=== PATIENT | female | born 1940 | race Caucasian/White ===

== ENCOUNTER 2020-09-02 07:48 | Inpatient (IN) | payer MEDICARE, BC ==
[2020-09-02] MEDS ORDERED: ONDANSETRON 4 MG/2 ML VIAL IVP STA ×2 (08:22→22:28)
[2020-09-02] MEDS ORDERED: HYDROmorphone 0.5 MG/0.5 ML SYRINGE IVP STA (08:22)
--- NOTE | 2020-09-02 08:53 | ED ---
General Adult HPI - General Chief complaint: Shortness of Breath Stated complaint: Weak/vomiting Time Seen by Provider: 09/02/20 08:00 Source: patient, family, RN notes reviewed, old records reviewed Mode of arrival: wheelchair Limitations: no limitations - History of Present Illness Initial comments: This is an 79-year-old female with a past medical history significant for a recent urinary tract infection which caused her sepsis. Patient started ant ibiotics in the hospital after 9 days was released home with the midline access for more antibiotics. Patient also has been told she has kidney failure and so she has had increased swelling in her legs and decided to come the emergency department. Patient complains that she's feeling a little more short of breath. Patient denies any fever chills per patient denies chest pain or palpitations. Patient denies headache patient denies numbness weakness. Patient denies any abdominal pain but she's very nauseated hasn't been able to eat much.patient states recently she's also been anemic and had be transfused a unit of blood transferred. - Related Data Allergies Allergy/AdvReac Type Severity Reaction Status Date / Time latex Allergy Rash/Hives Verified 09/02/20 07:58 Review of Systems ROS Statement: Those systems with pertinent positive or pertinent negative responses have been documented in the HPI. ROS Other: All systems not noted in ROS Statement are negative. Past Medical History Past Medical History: COPD Additional Past Medical History / Comment(s): COLON CA 2014 History of Any Multi-Drug Resistant Organisms: None Reported Past Surgical History: No Surgical Hx Reported Smoking Status: Never smoker Past Alcohol Use History: None Reported Past Drug Use History: None Reported General Exam - General Exam Comments Initial Comments: GENERAL: Patient is well-developed and well-nourished. Patient is nontoxic and well- hydrated and is in mild distress. ENT: Neck is soft and supple. No significant lymphadenopathy is noted. Oropharynx is clear. Moist mucous membranes. Neck has full range of motion without eliciting any pain. EYES: The sclera were anicteric and conjunctiva were pink and moist. Extraocular movements were intact and pupils were equal round and reactive to light. Eyelids were unremarkable. PULMONARY: Unlabored respirations. Good breath sounds bilaterally. No audible rales rh onchi or wheezing was noted. CARDIOVASCULAR: There is a regular rate and rhythm without any murmurs gallops or rubs. ABDOMEN: Soft and nontender with normal bowel sounds. SKIN: Skin is clear with no lesions or rashes and otherwise unremarkable. NEUROLOGIC: Patient is alert and oriented x3. Cranial nerves II through XII are grossly intact. Motor and sensory are also intact. Normal speech, volume and content. Symmetrical smile. MUSCULOSKELETAL: Normal extremities with adequate strength and full range of motion. 2+ edema LYMPHATICS: No significant lymphadenopathy is noted PSYCHIATRIC: Normal psychiatric evaluation. Limitations: no limitations Course Vital Signs 09/02/20 09/02/20 09/02/20 07:59 08:14 09:01 Temperature 98 F Pulse Rate 98 84 Respiratory 16 18 18 Rate Blood Pressure 128/72 125/57 O2 Sat by Pulse 100 99 Oximetry Medical Decision Making - Medical Decision Making EKG shows sinus rhythm at a rate of 96 bpm NV interval 236 QRS is 74 QT interval 336 QTC is 424. Patient's EKG shows no ST segment elevation or depression. Patient's potassium was greater than 7 so I gave the patient a sample of calcium chloride as well as an amp of sodium bicarb and amp of D50 and 10 of insulin. I spoke with Dr. Robertson she agreed to admit the patient wrote admitting orders. I consult to nephrology. - Lab Data Result diagrams: 09/02/20 08:36 09/02/20 08:36 Lab Results 09/02/20 09/02/20 09/02/20 Range/Units 08:36 08:36 08:36 WBC 8.7 (3.8-10.6) k/uL RBC 2.32 L (3.80-5.40) m/uL Hgb 7.8 L (11.4-16.0) gm/dL Hct 24.9 L (34.0-46.0) % MCV 107.6 H (80.0-100.0) fL MCH 33.6 (25.0-35.0) pg MCHC 31.2 (31.0-37.0) g/dL RDW 13.5 (11.5-15.5) % Plt Count 145 L (150-450) k/uL Neutrophils % 83 % Lymphocytes % 4 % Monocytes % 4 % Eosinophils % 5 % Basophils % 0 % Neutrophils # 7.3 (1.3-7.7) k/uL Lymphocytes # 0.4 L (1.0-4.8) k/uL Monocytes # 0.4 (0-1.0) k/uL Eosinophils # 0.5 (0-0.7) k/uL Basophils # 0.0 (0-0.2) k/uL Hypochromasia Moderate Macrocytosis Moderate Sodium 128 L (137-145) mmol/L Potassium 7.5 H* (3.5-5.1) mmol/L Chloride 105 (98-107) mmol/L Carbon Dioxide 12 L (22-30) mmol/L Anion Gap 11 mmol/L BUN 88 H (7-17) mg/dL Creatinine 8.14 H* (0.52-1.04) mg/dL Est GFR (CKD-EPI)AfAm 5 (>60 ml/min/1.73 sqM) Est GFR (CKD-EPI)NonAf 4 (>60 ml/min/1.73 sqM) Glucose 95 (74-99) mg/dL Plasma Lactic Acid Ryan 0.9 (0.7-2.0) mmol/L Calcium 8.8 (8.4-10.2) mg/dL Magnesium 1.3 L (1.6-2.3) mg/dL Total Bilirubin 0.5 (0.2-1.3) mg/dL AST 23 (14-36) U/L ALT <6 (4-34) U/L Alkaline Phosphatase 93 (38-126) U/L Troponin I (0.000-0.034) ng/mL Total Protein 7.0 (6.3-8.2) g/dL Albumin 2.8 L (3.5-5.0) g/dL Urine Color Urine Appearance (Clear) Urine pH (5.0-8.0) Ur Specific [place] (1.001-1.035) Urine Protein (Negative) Urine Glucose (UA) (Negative) Urine Ketones (Negative) Urine Blood (Negative) Urine Nitrite (Negative) Urine Bilirubin (Negative) Urine Urobilinogen (<2.0) mg/dL Ur Leukocyte Esterase (Negative) Urine RBC (0-5) /hpf Urine WBC (0-5) /hpf Urine WBC Clumps (None) /hpf Ur Squamous Epith Cells (0-4) /hpf Amorphous Sediment (None) /hpf Urine Bacteria (None) /hpf 09/02/20 09/02/20 Range/Units 08:36 09:03 WBC (3.8-10.6) k/uL RBC (3.80-5.40) m/uL Hgb (11.4-16.0) gm/dL Hct (34.0-46.0) % MCV (80.0-100.0) fL MCH (25.0-35.0) pg MCHC (31.0-37.0) g/dL RDW (11.5-15.5) % Plt Count (150-450) k/uL Neutrophils % % Lymphocytes % % Monocytes % % Eosinophils % % Basophils % % Neutrophils # (1.3-7.7) k/uL Lymphocytes # (1.0-4.8) k/uL Monocytes # (0-1.0) k/uL Eosinophils # (0-0.7) k/uL Basophils # (0-0.2) k/uL Hypochromasia Macrocytosis Sodium (137-145) mmol/L Potassium (3.5-5.1) mmol/L Chloride (98-107) mmol/L Carbon Dioxide (22-30) mmol/L Anion Gap mmol/L BUN (7-17) mg/dL Creatinine (0.52-1.04) mg/dL Est GFR (CKD-EPI)AfAm (>60 ml/min/1.73 sqM) Est GFR (CKD-EPI)NonAf (>60 ml/min/1.73 sqM) Glucose (74-99) mg/dL Plasma Lactic Acid Ryan (0.7-2.0) mmol/L Calcium (8.4-10.2) mg/dL Magnesium (1.6-2.3) mg/dL Total Bilirubin (0.2-1.3) mg/dL AST (14-36) U/L ALT (4-34) U/L Alkaline Phosphatase (38-126) U/L Troponin I 0.016 (0.000-0.034) ng/mL Total Protein (6.3-8.2) g/dL Albumin (3.5-5.0) g/dL Urine Color Yellow Urine Appearance Turbid H (Clear) Urine pH 6.0 (5.0-8.0) Ur Specific [place] 1.019 (1.001-1.035) Urine Protein 3+ H (Negative) Urine Glucose (UA) Negative (Negative) Urine Ketones 1+ H (Negative) Urine Blood Large H (Negative) Urine Nitrite Negative (Negative) Urine Bilirubin Negative (Negative) Urine Urobilinogen <2.0 (<2.0) mg/dL Ur Leukocyte Esterase Large H (Negative) Urine RBC 175 H (0-5) /hpf Urine WBC 121 H (0-5) /hpf Urine WBC Clumps Many H (None) /hpf Ur Squamous Epith Cells 6 H (0-4) /hpf Amorphous Sediment Occasional H (None) /hpf Urine Bacteria Few H (None) /hpf Critical Care Time Critical Care Time: Yes Total Critical Care Time: 35 Disposition Clinical Impression: Acute renal failure, Hyperkalemia Disposition: ADMITTED IP TO THIS HOSP Referrals: Flex Bojorquez DO [Primary Care Provider] - 1-2 days Time of Disposition: 09:21
[2020-09-02 08:56] LABS: Basophils % (A) 0 %; Eosinophils # (A) 0.5 k/uL (0-0.7); Eosinophils % (A) 5 %; HCT 24.9 % (34.0-46.0); HGB 7.8 gm/dL (11.4-16.0); Hypochromasia Moderate; Lymphocytes # (A) 0.4 k/uL (1.0-4.8); Lymphocytes % (A) 4 %; MCH 33.6 pg (25.0-35.0); MCHC 31.2 g/dL (31.0-37.0); MCV 107.6 fL (80.0-100.0); Macrocytosis Moderate; Mean Platelet Volume 8.2; Monocytes # (A) 0.4 k/uL (0-1.0); Monocytes % (A) 4 %; Neutrophils # (A) 7.3 k/uL (1.3-7.7); Neutrophils % (A) 83 %; Platelet Count 145 k/uL (150-450); RBC 2.32 m/uL (3.80-5.40); RDW 13.5 % (11.5-15.5); WBC 8.7 k/uL (3.8-10.6)
[2020-09-02 08:59] LABS: ALT <6 U/L (4-34); AST 23 U/L (14-36); African American GFR (CKD) 5 (>60 ml/min/1.73 sqM); Albumin 2.8 g/dL (3.5-5.0); Alkaline Phosphatase 93 U/L (38-126); Anion Gap 11 mmol/L; Blood Urea Nitrogen 88 mg/dL (7-17); Calcium 8.8 mg/dL (8.4-10.2); Carbon Dioxide 12 mmol/L (22-30); Chloride 105 mmol/L (98-107); Glucose 95 mg/dL (74-99); Magnesium 1.3 mg/dL (1.6-2.3); Non-African American GFR(CKD) 4 (>60 ml/min/1.73 sqM); Sodium 128 mmol/L (137-145); Total Bilirubin 0.5 mg/dL (0.2-1.3)
[2020-09-02 09:04] LABS: Potassium 7.5 mmol/L (3.5-5.1)
[2020-09-02] MEDS ORDERED: CALCIUM CHLORIDE 100 MG/ML 10 ML SYRINGE IVP STA (09:15)
[2020-09-02] MEDS ORDERED: INSULIN REGULAR 100 UNIT/ML VIAL IV ONE ×2 (09:16→12:52)
--- NOTE | 2020-09-02 09:19 | XR ---
EXAMINATION TYPE: XR chest 2V DATE OF EXAM: 09/02/2020 COMPARISON: None INDICATION: Weakness TECHNIQUE: Frontal and lateral views of the chest are obtained. FINDINGS: The heart size is normal. The pulmonary vasculature is normal. Small left pleural effusion may be present with blunting left costophrenic angle frontal view. Small posterior pleural effusion is evident.. IMPRESSION: 1. Small left pleural effusion
[2020-09-02 09:24] LABS: Amorphous Sediment,Urine Occasional /hpf; Appearance,Urine Turbid (Clear); Bacteria,Urine Few /hpf; Bilirubin,Urine Negative (Negative); Blood,Urine Large (Negative); Color,Urine Yellow; Glucose,Urine (UA) Negative (Negative); Ketones,Urine 1+ (Negative); Leukocyte Esterase,Urine Large (Negative); Nitrite,Urine Negative (Negative); Protein,Urine 3+ (Negative); RBC,Urine 175 /hpf (0-5); Specific Gravity,Urine 1.019 (1.001-1.035); Squamous Epithelial Cell,Urine 6 /hpf (0-4); Urobilinogen,Urine <2.0 mg/dL (<2.0); WBC,Urine 121 /hpf (0-5)
[2020-09-02] MEDS: SODIUM BICARB 8.4% 50 ML SYR (1 MEQ/ML) IV STA ×2 (09:31→13:06)
[2020-09-02] MEDS: DEXTROSE 50% SYRINGE 50 ML IVP STA ×2 (09:32→13:06)
[2020-09-02] MEDS ORDERED: INFLUENZA VACCINE (6 MOS+) 60 MCG/0.5 ML SYRINGE IM ONE (10:27)
[2020-09-02 11:41] LABS: INR 1.2 (<1.2); Partial Thromboplastin Time 23.4 sec (22.0-30.0); Prothrombin Time 11.7 sec (9.0-12.0)
[2020-09-02 13:17] LABS: Glucose,Whole Blood 112 mg/dL (75-99)
[2020-09-02] MEDS: DEXTROSE 5% IN WATER 1,000 ML with SODIUM BICARB (1 MEQ/ML) 150 ML IV SCH (13:25)
[2020-09-02] MEDS ORDERED: CALCIUM GLUCONATE 1 GM in SODIUM CHLORIDE 0.9% 100 ML IVPB ONE (13:30)
--- NOTE | 2020-09-02 14:01 | US ---
EXAMINATION TYPE: US kidneys/renal and bladder DATE OF EXAM: 09/02/2020 COMPARISON: NONE CLINICAL HISTORY: renal failure . Recent renal stones and sepsis from [facility] treatment EXAM MEASUREMENTS: Right Kidney: 10.1 x 5.0 x 4.0 cm Left Kidney: 11.0 x 3.5 x 3.5 cm Post Void Residual Volume: not assessed on EC patient and bladder not prepped Rt pleural effusion is noted. Right Kidney: upper cortical cyst = 0.5 x 0.7 x 0.7cm Left Kidney: multiple renal stones noted upper and mid and lower pole with largest shadowing stone = 1.0 x 0.3 x 1.2cm; lower cortical cyst = 1.2 x 1.2 x 1.1cm. Bladder: not prepped and not seen There is no evidence for hydronephrosis at this point in time. IMPRESSION: 1. Nonobstructing renal stones upper and mid left kidney. 2. Right renal cyst. 3. Incidental note is made of a right pleural effusion
[2020-09-02 14:10] LABS: Glucose,Whole Blood 162 mg/dL (75-99)
[2020-09-02] MEDS: HYDROmorphone 1 MG/ML 1 ML SYRINGE IVP PRN ×2 (14:40→20:59)
[2020-09-02] MEDS ORDERED: SODIUM POLYSTYRENE SULFONATE 15 GM/60 ML BOTTLE PO STA (14:59)
[2020-09-02] MEDS ORDERED: HYDROmorphone 1 MG/ML 1 ML SYRINGE IVP STA (15:18)
--- NOTE | 2020-09-02 16:02 | P.GSCN ---
History of Present Illness History of present illness: 79-year-old white female, patient came with the [place] infection and with the acute chronic failure with high potassium and low magnesium I was consulted for urgent dialysis catheter placement. Patient was seen in in her room her vital signs are stable Neck examination neck is no bruit appreciated Chest is clear first and second sound normal few rhonchi at the lung bases Abdomen abdomen soft patient has a ileostomy Vascular examination femorals are palpable bilateral there is triple lumen catheter and there her right groin for IV access Plan is patient does have dialysis catheter risk and complication discussed Past Medical History Past Medical History: Cancer, COPD, Hyperlipidemia, Pneumonia, Renal Disease Additional Past Medical History / Comment(s): Recent UTI with sepsis/hospitalized 9 days/has midline for home antibiotics, chronic kidney disease, past UTIs, anemia/recently received transfusion, 2013 colon cancer/has colostomy, skin cancer with removals, chronic low back pain and delfin states 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 History of Any Multi-Drug Resistant Organisms: None Reported Past Surgical History: Bowel Resection, Tonsillectomy Additional Past Surgical History / Comment(s): Colectomy/colostomy, colonoscopies, midline to L arm, skin cancers removed from face. Past Anesthesia/Blood Transfusion Reactions: No Reported Reaction Additional Past Anesthesia/Blood Transfusion Reaction / Comm: Pt recently rec eived blood without reaction. Past Psychological History: Depression Additional Psychological History / Comment(s): Pt resides with her delfinYanira, her delfin's spouse and children. Prior to recent hospitalization, pt was independent with walking but was discharged using cane/walker and just past couple days-too weak to use those. 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 Smoking Status: Never smoker Past Alcohol Use History: None Reported Past Drug Use History: None Reported - Past Family History Mother Family Medical History: Cancer Additional Family Medical History / Comment(s): Mother of ovarian cancer at the age of 70 yrs. Father Family Medical History: Liver Disease Additional Family Medical History / Comment(s): Father of cirrhosis at the age of 55 yrs. Medications and Allergies Home Medications Medication Instructions Recorded Confirmed Type Docusate [Colace] 100 mg PO BID PRN 09/02/20 09/02/20 History Escitalopram [Lexapro] 10 mg PO DAILY 09/02/20 09/02/20 History Ferrous Sulfate [Feosol] 325 mg PO DAILY 09/02/20 09/02/20 History Hydrocodone/Acetaminophen [[place] 1 tab PO Q4HR PRN 09/02/20 09/02/20 History 7.5-325] Ondansetron [Zofran ODT] 4 mg PO Q8HR PRN 09/02/20 09/02/20 History Rosuvastatin Calcium 20 mg PO DAILY 09/02/20 09/02/20 History Spectravite Womens' Tablet 1 tab PO DAILY 09/02/20 09/02/20 History Uromag 140 mg PO BID 09/02/20 09/02/20 History methylPREDNISolone Dose Pack See Taper PO DIRECTED 09/02/20 09/02/20 History [Medrol Dose Pack] Allergies Allergy/AdvReac Type Severity Reaction Status Date / Time latex Allergy Rash/Hives Verified 09/02/20 09:36 Surgical - Exam Vital Signs Pulse Resp BP Pulse Ox 98 16 128/72 100 09/02/20 07:59 09/02/20 07:59 09/02/20 07:59 09/02/20 07:59 Results - Labs 09/02/20 08:36 09/02/20 11:13 Abnormal Lab Results - Last 24 Hours (Table) 09/02/20 09/02/20 09/02/20 Range/Units 08:36 08:36 09:03 RBC 2.32 L (3.80-5.40) m/uL Hgb 7.8 L (11.4-16.0) gm/dL Hct 24.9 L (34.0-46.0) % MCV 107.6 H (80.0-100.0) fL Plt Count 145 L (150-450) k/uL Lymphocytes # 0.4 L (1.0-4.8) k/uL INR (<1.2) Sodium 128 L (137-145) mmol/L Potassium 7.5 H* (3.5-5.1) mmol/L Carbon Dioxide 12 L (22-30) mmol/L BUN 88 H (7-17) mg/dL Creatinine 8.14 H* (0.52-1.04) mg/dL POC Glucose (mg/dL) (75-99) mg/dL Magnesium 1.3 L (1.6-2.3) mg/dL Albumin 2.8 L (3.5-5.0) g/dL Urine Appearance Turbid H (Clear) Urine Protein 3+ H (Negative) Urine Ketones 1+ H (Negative) Urine Blood Large H (Negative) Ur Leukocyte Esterase Large H (Negative) Urine RBC 175 H (0-5) /hpf Urine WBC 121 H (0-5) /hpf Urine WBC Clumps Many H (None) /hpf Ur Squamous Epith Cells 6 H (0-4) /hpf Amorphous Sediment Occasional H (None) /hpf Urine Bacteria Few H (None) /hpf 09/02/20 09/02/20 09/02/20 Range/Units 11:00 11:13 13:05 RBC (3.80-5.40) m/uL Hgb (11.4-16.0) gm/dL Hct (34.0-46.0) % MCV (80.0-100.0) fL Plt Count (150-450) k/uL Lymphocytes # (1.0-4.8) k/uL INR 1.2 H (<1.2) Sodium (137-145) mmol/L Potassium 7.2 H* (3.5-5.1) mmol/L Carbon Dioxide (22-30) mmol/L BUN (7-17) mg/dL Creatinine (0.52-1.04) mg/dL POC Glucose (mg/dL) 112 H (75-99) mg/dL Magnesium (1.6-2.3) mg/dL Albumin (3.5-5.0) g/dL Urine Appearance (Clear) Urine Protein (Negative) Urine Ketones (Negative) Urine Blood (Negative) Ur Leukocyte Esterase (Negative) Urine RBC (0-5) /hpf Urine WBC (0-5) /hpf Urine WBC Clumps (None) /hpf Ur Squamous Epith Cells (0-4) /hpf Amorphous Sediment (None) /hpf Urine Bacteria (None) /hpf 09/02/20 Range/Units 14:09 RBC (3.80-5.40) m/uL Hgb (11.4-16.0) gm/dL Hct (34.0-46.0) % MCV (80.0-100.0) fL Plt Count (150-450) k/uL Lymphocytes # (1.0-4.8) k/uL INR (<1.2) Sodium (137-145) mmol/L Potassium (3.5-5.1) mmol/L Carbon Dioxide (22-30) mmol/L BUN (7-17) mg/dL Creatinine (0.52-1.04) mg/dL POC Glucose (mg/dL) 162 H (75-99) mg/dL Magnesium (1.6-2.3) mg/dL Albumin (3.5-5.0) g/dL Urine Appearance (Clear) Urine Protein (Negative) Urine Ketones (Negative) Urine Blood (Negative) Ur Leukocyte Esterase (Negative) Urine RBC (0-5) /hpf Urine WBC (0-5) /hpf Urine WBC Clumps (None) /hpf Ur Squamous Epith Cells (0-4) /hpf Amorphous Sediment (None) /hpf Urine Bacteria (None) /hpf Microbiology - Last 24 Hours (Table) 09/02/20 09:03 Urine Culture - Preliminary Urine,Voided Diabetes panel 09/02/20 09/02/20 Range/Units 08:36 11:13 Sodium 128 L (137-145) mmol/L Potassium 7.5 H* 7.2 H* (3.5-5.1) mmol/L Chloride 105 (98-107) mmol/L Carbon Dioxide 12 L (22-30) mmol/L BUN 88 H (7-17) mg/dL Creatinine 8.14 H* (0.52-1.04) mg/dL Glucose 95 (74-99) mg/dL Calcium 8.8 (8.4-10.2) mg/dL AST 23 (14-36) U/L ALT <6 (4-34) U/L Alkaline Phosphatase 93 (38-126) U/L Total Protein 7.0 (6.3-8.2) g/dL Albumin 2.8 L (3.5-5.0) g/dL Calcium panel 09/02/20 Range/Units 08:36 Calcium 8.8 (8.4-10.2) mg/dL Albumin 2.8 L (3.5-5.0) g/dL Pituitary panel 09/02/20 09/02/20 Range/Units 08:36 11:13 Sodium 128 L (137-145) mmol/L Potassium 7.5 H* 7.2 H* (3.5-5.1) mmol/L Chloride 105 (98-107) mmol/L Carbon Dioxide 12 L (22-30) mmol/L BUN 88 H (7-17) mg/dL Creatinine 8.14 H* (0.52-1.04) mg/dL Glucose 95 (74-99) mg/dL Calcium 8.8 (8.4-10.2) mg/dL Adrenal panel 09/02/20 09/02/20 Range/Units 08:36 11:13 Sodium 128 L (137-145) mmol/L Potassium 7.5 H* 7.2 H* (3.5-5.1) mmol/L Chloride 105 (98-107) mmol/L Carbon Dioxide 12 L (22-30) mmol/L BUN 88 H (7-17) mg/dL Creatinine 8.14 H* (0.52-1.04) mg/dL Glucose 95 (74-99) mg/dL Calcium 8.8 (8.4-10.2) mg/dL Total Bilirubin 0.5 (0.2-1.3) mg/dL AST 23 (14-36) U/L ALT <6 (4-34) U/L Alkaline Phosphatase 93 (38-126) U/L Total Protein 7.0 (6.3-8.2) g/dL Albumin 2.8 L (3.5-5.0) g/dL
--- NOTE | 2020-09-02 16:04 | P.PCN ---
Description of Procedure: Preop diagnoses is acute chronic renal failure with high potassium Postoperative same Left groin was prepped and draped applied usual sterile manner 1% lidocaine were infiltrated in the left groin ultrasound-guided micropuncture introduced to the left femoral vein and micropuncture guidewire was passed without any resistance. 4-Citizen Of [place] sheath was advanced on top of guidewire then we passed a regular guidewire without any resistance dilator was advanced on the top the guidewire. Then replaced a double lumen dialysis catheter on top of guidewire and guidewire was removed flushed with heparin saline and Hep-Lock secured with 3-0 nylon dressing applied patient are to the procedure well
--- NOTE | 2020-09-02 16:12 | P.CNPUL ---
History of Present Illness Consult date: 09/02/20 Requesting physician: Alex Brenner Reason for consult: other Chief complaint: Acute kidney injury, hyperkalemia History of present illness: 79-year-old white female patient of Dr. Bojorquez from the [facility] who had a recent hospitalization 3 weeks ago at the [facility] for acute urinary tract infection and sepsis. Patient was released home with the left upper midline access for antibiotic infusions. Yesterday patient went to see her PCP for routine blood work which revealed significantly abnormal renal function, and hypokalemia and patient was directed to come to the emergency department for evaluation and treatment. Patient is complaining of being more short of breath, she has developed pressure ulcer on her coccyx stage II, which is causing her discomfort, she also has a diffuse papular rash all over her body, arms, torso, legs, which is itchy. She denied any chest pain, denied any cough, phlegm production. She has a colostomy in place for previous history of colon resection for colon cancer, he denies any nausea vomiting or diarrhea. She denies any headaches. Apparently patient has not been able to eat much. She has recently been anemic and has required blood transfusion. Her daughters at the bedside and providing much of the history although she is not sure of the details, she is not sure of the name of the antibiotic the patient was discharged home on, or whether or not patient had any diarrhea at home. Patient's past medical history includes COPD, previous history of smoking, hyperlipidemia, chronic kidney disease, previous history of urinary tract infections, moderate protein calorie malnutrition, colon cancer in 2013, chronic back pain, scoliosis. She was discharged from the [facility] on 08/18/2020, her blood cultures were positive for MSSA, and echocardiogram revealed no vegetation. In the emergency department blood work showed BUN of 88, creatinine of 8.14, with potassium of 7.5 which was treated with insulin, 50% dextrose, calcium gluconate, nephrology has been consulted, troponin is negative, LFTs are within normal limits, urinalysis is significantly infected, urine culture has been sent, blood cultures have been sent, patient is anuric, she was given an amp of sodium bicarbonate, and she is on bicarbonate infusion at a rate of 70 ML per hour. Repeat blood work showed persistent hyperkalemia with potassium of 7.2, the plan is for another lab work, and nephrology is planning on vascular surgery consult for placement of temporary hemodialysis catheter and initiation of hemodialysis. Review of Systems All systems: negative Constitutional: Denies chills, Denies fever Eyes: denies blurred vision, denies pain Ears, nose, mouth and throat: Denies headache, Denies sore throat Cardiovascular: Denies chest pain, Denies shortness of breath Respiratory: Reports dyspnea, Denies cough Gastrointestinal: Denies abdominal pain, Denies diarrhea, Denies nausea, Denies vomiting Genitourinary: Denies dysuria, Denies hematuria Musculoskeletal: Denies myalgias Integumentary: Denies pruritus, Denies rash Neurological: Denies numbness, Denies weakness Psychiatric: Denies anxiety, Denies depression Endocrine: Denies fatigue, Denies weight change Past Medical History Past Medical History: Cancer, COPD, Hyperlipidemia, Pneumonia, Renal Disease Additional Past Medical History / Comment(s): Recent UTI with sepsis/hospitalized 9 days/has midline for home antibiotics, chronic kidney disease, past UTIs, anemia/recently received transfusion, 2013 colon cancer/has colostomy, skin cancer with removals, chronic low back pain and delfin states 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 History of Any Multi-Drug Resistant Organisms: None Reported Past Surgical History: Bowel Resection, Tonsillectomy Additional Past Surgical History / Comment(s): Colectomy/colostomy, colonoscopies, midline to L arm, skin cancers removed from face. Past Anesthesia/Blood Transfusion Reactions: No Reported Reaction Additional Past Anesthesia/Blood Transfusion Reaction / Comment(s): Pt recently received blood without reaction. Past Psychological History: Depression Additional Psychological History / Comment(s): Pt resides with her delfinYanira, her delfin's spouse and children. Prior to recent hospitalization, pt was independent with walking but was discharged using cane/walker and just past couple days-too weak to use those. Pt has home hospice rn/PT/OT ty believes is thru [facility]. Smoking Status: Never smoker Past Alcohol Use History: None Reported Past Drug Use History: None Reported - Past Family History Mother Family Medical History: Cancer Additional Family Medical History / Comment(s): Mother of ovarian cancer at the age of 70 yrs. Father Family Medical History: Liver Disease Additional Family Medical History / Comment(s): Father of cirrhosis at the age of 55 yrs. Medications and Allergies Home Medications Medication Instructions Recorded Confirmed Type Docusate [Colace] 100 mg PO BID PRN 09/02/20 09/02/20 History Escitalopram [Lexapro] 10 mg PO DAILY 09/02/20 09/02/20 History Ferrous Sulfate [Feosol] 325 mg PO DAILY 09/02/20 09/02/20 History Hydrocodone/Acetaminophen [[place] 1 tab PO Q4HR PRN 09/02/20 09/02/20 History 7.5-325] Ondansetron [Zofran ODT] 4 mg PO Q8HR PRN 09/02/20 09/02/20 History Rosuvastatin Calcium 20 mg PO DAILY 09/02/20 09/02/20 History Spectravite Womens' Tablet 1 tab PO DAILY 09/02/20 09/02/20 History Uromag 140 mg PO BID 09/02/20 09/02/20 History methylPREDNISolone Dose Pack See Taper PO DIRECTED 09/02/20 09/02/20 History [Medrol Dose Pack] Allergies Allergy/AdvReac Type Severity Reaction Status Date / Time latex Allergy Rash/Hives Verified 09/02/20 09:36 Physical Exam Vitals: Vital Signs Temp Pulse Resp BP Pulse Ox 09/02/20 13:17 86 16 122/86 99 09/02/20 11:25 88 16 113/60 100 09/02/20 09:01 98 F 84 18 125/57 99 09/02/20 08:14 18 09/02/20 07:59 98 16 128/72 100 Intake and Output 09/02/20 09/02/20 09/02/20 06:59 14:59 22:59 Output Total 15 Balance -15 Output: Urine 15 Straight 15 Other: Weight 46.72 kg GENERAL EXAM: Alert, frail-looking 79-year-old white female resting in bed, she is in mild amount of discomfort from the pain from her open area on her coccyx, and a itchy rash throughout her body. Patient is on room air with a pulse ox of 99% HEAD: Normocephalic/atraumatic. EYES: Normal reaction of pupils, equal size. Conjunctiva pink, sclera white. NOSE: Clear with pink turbinates. THROAT: No erythema or exudates. NECK: No masses, no JVD, no thyroid enlargement, no adenopathy. CHEST: No chest wall deformity. Symmetrical expansion. LUNGS: Equal air entry with no crackles, wheeze, rhonchi or dullness. CVS: Regular rate and rhythm, normal S1 and S2, no gallops, no murmurs, no rubs ABDOMEN: Soft, nontender. No hepatosplenomegaly, normal bowel sounds, no guarding or rigidity. EXTREMITIES: No clubbing, no edema, no cyanosis, 2+ pulses and upper and lower extremities. MUSCULOSKELETAL: Muscle strength and tone normal. SPINE: No scoliosis or deformity SKIN: Stage II decubitus ulcer on her coccyx, patient is extremely frail, with multiple bony prominences on her coccyx, patient has generalized papular macular rash all over her body, neck, arms, truncal area back and legs CENTRAL NERVOUS SYSTEM: Alert and oriented -3. No focal deficits, tone is normal in all 4 extremities. PSYCHIATRIC: Alert and oriented -3. Appropriate affect. Intact judgment and insight. Results - Laboratory Findings CBC and BMP: 09/02/20 08:36 09/02/20 11:13 PT/INR, D-dimer PT 11.7 sec (9.0-12.0) 09/02/20 11:00 INR 1.2 (<1.2) H 09/02/20 11:00 Abnormal lab findings: Abnormal Labs 09/02/20 09/02/20 09/02/20 08:36 08:36 09:03 RBC 2.32 L Hgb 7.8 L Hct 24.9 L MCV 107.6 H Plt Count 145 L Lymphocytes # 0.4 L INR Sodium 128 L Potassium 7.5 H* Carbon Dioxide 12 L BUN 88 H Creatinine 8.14 H* POC Glucose (mg/dL) Magnesium 1.3 L Albumin 2.8 L Urine Appearance Turbid H Urine Protein 3+ H Urine Ketones 1+ H Urine Blood Large H Ur Leukocyte Esterase Large H Urine RBC 175 H Urine WBC 121 H Urine WBC Clumps Many H Ur Squamous Epith Cells 6 H Amorphous Sediment Occasional H Urine Bacteria Few H 09/02/20 09/02/20 09/02/20 11:00 11:13 13:05 RBC Hgb Hct MCV Plt Count Lymphocytes # INR 1.2 H Sodium Potassium 7.2 H* Carbon Dioxide BUN Creatinine POC Glucose (mg/dL) 112 H Magnesium Albumin Urine Appearance Urine Protein Urine Ketones Urine Blood Ur Leukocyte Esterase Urine RBC Urine WBC Urine WBC Clumps Ur Squamous Epith Cells Amorphous Sediment Urine Bacteria 09/02/20 14:09 RBC Hgb Hct MCV Plt Count Lymphocytes # INR Sodium Potassium Carbon Dioxide BUN Creatinine POC Glucose (mg/dL) 162 H Magnesium Albumin Urine Appearance Urine Protein Urine Ketones Urine Blood Ur Leukocyte Esterase Urine RBC Urine WBC Urine WBC Clumps Ur Squamous Epith Cells Amorphous Sediment Urine Bacteria - Diagnostic Findings Chest x-ray: report reviewed, image reviewed Additional studies: EKG reviewed, ultrasound abdomen and pelvis showing nonobstructing renal stones upper and mid left kidney and incidental finding of right pleural effusion Assessment and Plan Plan: Assessment: #1. Acute kidney injury related to possibility of ATN and acute hyperkalemia with the serum potassium level of 7.5 #2. Recent hospitalization for urinary tract infection with sepsis, MSSA bacteremia at the [facility], discharged home on 08/18/2020 with a midline access and IV antibiotics. Echocardiogram completed at [facility] showed no evidence of vegetation #3. Chronic kidney disease, baseline unknown #4. Acute urinary tract infection, we will start the patient on Rocephin, urine culture has been sent #5. Multiple electrolyte abnormalities, including hypokalemia, hyponatremia related to acute kidney injury, dehydration #6. History of colon cancer in 2013, status post colostomy #7. Nonobstructing renal stones in the upper and mid left kidney and right r enal cyst #8. Right pleural effusion #9. Previous history of urinary tract infections #10. Recent history of anemia requiring blood transfusion #11. Stage II decubitus ulcer on coccyx present on admission #12. Scoliosis #13. History of chronic low back pain #14. Protein calorie malnutrition #15. History of COPD with previous history of smoking Plan: Continue bicarbonate infusion, we'll order one dose of Kayexalate, repeat potassium is pending, central line was placed in the right femoral area and right radial arterial line was placed for close hemodynamic monitoring and manag ement. Nephrology is following and planning on placing a consultation to vascular surgery for urgent placement of hemodialysis catheter and starting hemodialysis. Continue monitoring the EKG changes, a blood pressure, urine output, we will place the patient on ceftriaxone, new blood cultures urine culture have been sent, patient is afebrile, COPD seems to be stable, not much in the way of pulmonary symptoms, chest x-ray and abdominal ultrasound have been reviewed, EKG reviewed. Code Status has been addressed with patient's daughter who wishes for her mother to be a full code at this time. She seems to be chronically debilitated, she has multiple chronic medical issues. GI and DVT prophylaxis. I performed a history & physical examination of the patient and discussed their management with my nurse practitioner, Amara Zelaya. I reviewed the nurse practitioner's note and agree with the documented findings and plan of care. Lung sounds are positive for diminished breath sounds. The findings and the impression was discussed with the patient. I attest to the documentation by the nurse practitioner. Time with Patient: Greater than 30
[2020-09-02] MEDS ORDERED: NALOXONE 0.4 MG/ML 1 ML VIAL IV PRN (16:48)
[2020-09-02 17:09] LABS: Potassium 6.7 mmol/L (3.5-5.1)
[2020-09-02] MEDS: PANTOPRAZOLE 40 MG/10 ML VIAL IVP SCH (17:19)
--- NOTE | 2020-09-02 17:28 | P.HPIM ---
History of Present Illness H&P Date: 09/02/20 Chief Complaint: Shortness of breath/weakness 79-year-old female with a past medical history significant for a recent urinary tract infection which caused her sepsis. Patient started antibiotics in the hospital after 9 days was released home with the midline access for more antibiotics. Patient also has been told she has kidney failure and so she has had increased swelling in her legs and decided to come the emergency department. Patient complains that she's feeling a little more short of breath. Patient denies any fever chills per patient denies chest pain or palpitations. Patient denies headache patient denies numbness weakness. Patient denies any abdominal pain but she's very nauseated hasn't been able to eat much.patient states recently she's also been anemic and had be transfused a unit of blood transferred. Workup in ED including an EKG showed no ST segment elevation or depression Lab work revealed a sodium of 128, potassium of 7.5, BUN/creatinine of 88/8.14 Patient was treated with an amp of D50 with 10 units of IV insulin along with calcium carbonate; patient is being admitted to ICU for consultation with laboratory asst, nephrology for possible hemodialysis and ID to continue treatment of bacteremia Review of Systems REVIEW OF SYSTEMS: CONSTITUTIONAL: No fever, no malaise, no fatigue. HEENT: No recent visual problems or hearing problems. Denied any sore throat. CARDIOVASCULAR: No chest pain, orthopnea, PND, no palpitations, no syncope. PULMONARY: No shortness of breath, no cough, no hemoptysis. GASTROINTESTINAL: No diarrhea, no nausea, no vomiting, no abdominal pain. NEUROLOGICAL: No headaches, no weakness, no numbness. HEMATOLOGICAL: Denies any bleeding or petechiae. GENITOURINARY: Denies any burning micturition, frequency, or urgency. MUSCULOSKELETAL/RHEUMATOLOGICAL: Denies any joint pain, swelling, or any muscle pain. ENDOCRINE: Denies any polyuria or polydipsia. The rest of the 14-point review of systems is negative. Past Medical History Past Medical History: Cancer, COPD, Hyperlipidemia, Pneumonia, Renal Disease Additional Past Medical History / Comment(s): Recent UTI with sepsis/hosp italized 9 days/has midline for home antibiotics, chronic kidney disease, past UTIs, anemia/recently received transfusion, 2013 colon cancer/has colostomy, skin cancer with removals, chronic low back pain and delfin states 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 History of Any Multi-Drug Resistant Organisms: None Reported Past Surgical History: Bowel Resection, Tonsillectomy Additional Past Surgical History / Comment(s): Colectomy/colostomy, colonoscopies, midline to L arm, skin cancers removed from face. Past Anesthesia/Blood Transfusion Reactions: No Reported Reaction Additional Past Anesthesia/Blood Transfusion Reaction / Comment(s): Pt recently received blood without reaction. Past Psychological History: Depression Additional Psychological History / Comment(s): Pt resides with her delfin, Yanira, her delfin's spouse and children. Prior to recent hospitalization, pt was independent with walking but was discharged using cane/walker and just past couple days-too weak to use those. Pt has nursing home assistant administrator/PT/OT ty believes is thru [facility]. Smoking Status: Never smoker Past Alcohol Use History: None Reported Past Drug Use History: None Reported - Past Family History Mother Family Medical History: Cancer Additional Family Medical History / Comment(s): Mother of ovarian cancer at the age of 70 yrs. Father Family Medical History: Liver Disease Additional Family Medical History / Comment(s): Father of cirrhosis at the age of 55 yrs. Medications and Allergies Home Medications Medication Instructions Recorded Confirmed Type Docusate [Colace] 100 mg PO BID PRN 09/02/20 09/02/20 History Escitalopram [Lexapro] 10 mg PO DAILY 09/02/20 09/02/20 History Ferrous Sulfate [Feosol] 325 mg PO DAILY 09/02/20 09/02/20 History Hydrocodone/Acetaminophen [[place] 1 tab PO Q4HR PRN 09/02/20 09/02/20 History 7.5-325] Ondansetron [Zofran ODT] 4 mg PO Q8HR PRN 09/02/20 09/02/20 History Rosuvastatin Calcium 20 mg PO DAILY 09/02/20 09/02/20 History Spectravite Womens' Tablet 1 tab PO DAILY 09/02/20 09/02/20 History Uromag 140 mg PO BID 09/02/20 09/02/20 History methylPREDNISolone Dose Pack See Taper PO DIRECTED 09/02/20 09/02/20 History [Medrol Dose Pack] Allergies Allergy/AdvReac Type Severity Reaction Status Date / Time latex Allergy Rash/Hives Verified 09/02/20 09:36 Physical Exam Vitals: Vital Signs Temp Pulse Resp BP Pulse Ox 09/02/20 13:17 86 16 122/86 99 09/02/20 11:25 88 16 113/60 100 09/02/20 09:01 98 F 84 18 125/57 99 09/02/20 08:14 18 09/02/20 07:59 98 16 128/72 100 Intake and Output 09/01/20 09/02/20 09/02/20 22:59 06:59 14:59 Output Total 15 Balance -15 Output: Urine 15 Straight 15 Other: Weight 46.72 kg HEAD: Normocephalic/atraumatic. EYES: Normal reaction of pupils, equal size. Conjunctiva pink, sclera white. NOSE: Clear with pink turbinates. THROAT: No erythema or exudates. NECK: No masses, no JVD, no thyroid enlargement, no adenopathy. CHEST: No chest wall deformity. Symmetrical expansion. LUNGS: Equal air entry with no crackles, wheeze, rhonchi or dullness. CVS: Regular rate and rhythm, normal S1 and S2, no gallops, no murmurs, no rubs ABDOMEN: Soft, nontender. No hepatosplenomegaly, normal bowel sounds, no guarding or rigidity. EXTREMITIES: No clubbing, no edema, no cyanosis, 2+ pulses and upper and lower extremities. MUSCULOSKELETAL: Muscle strength and tone normal. SPINE: No scoliosis or deformity SKIN: Stage II decubitus ulcer on her coccyx, patient is extremely frail, with multiple bony prominences on her coccyx, patient has generalized papular macular rash all over her body, neck, arms, truncal area back and legs CENTRAL NERVOUS SYSTEM: Alert and oriented -3. No focal deficits, tone is normal in all 4 extremities. PSYCHIATRIC: Alert and oriented -3. Appropriate affect. Intact judgment and insight. Results CBC & Chem 7: 09/02/20 08:36 09/02/20 16:14 Labs: Abnormal Lab Results - Last 24 Hours (Table) 09/02/20 09/02/20 09/02/20 Range/Units 08:36 08:36 09:03 RBC 2.32 L (3.80-5.40) m/uL Hgb 7.8 L (11.4-16.0) gm/dL Hct 24.9 L (34.0-46.0) % MCV 107.6 H (80.0-100.0) fL Plt Count 145 L (150-450) k/uL Lymphocytes # 0.4 L (1.0-4.8) k/uL INR (<1.2) Sodium 128 L (137-145) mmol/L Potassium 7.5 H* (3.5-5.1) mmol/L Carbon Dioxide 12 L (22-30) mmol/L BUN 88 H (7-17) mg/dL Creatinine 8.14 H* (0.52-1.04) mg/dL POC Glucose (mg/dL) (75-99) mg/dL Magnesium 1.3 L (1.6-2.3) mg/dL Albumin 2.8 L (3.5-5.0) g/dL Urine Appearance Turbid H (Clear) Urine Protein 3+ H (Negative) Urine Ketones 1+ H (Negative) Urine Blood Large H (Negative) Ur Leukocyte Esterase Large H (Negative) Urine RBC 175 H (0-5) /hpf Urine WBC 121 H (0-5) /hpf Urine WBC Clumps Many H (None) /hpf Ur Squamous Epith Cells 6 H (0-4) /hpf Amorphous Sediment Occasional H (None) /hpf Urine Bacteria Few H (None) /hpf 09/02/20 09/02/20 09/02/20 Range/Units 11:00 11:13 13:05 RBC (3.80-5.40) m/uL Hgb (11.4-16.0) gm/dL Hct (34.0-46.0) % MCV (80.0-100.0) fL Plt Count (150-450) k/uL Lymphocytes # (1.0-4.8) k/uL INR 1.2 H (<1.2) Sodium (137-145) mmol/L Potassium 7.2 H* (3.5-5.1) mmol/L Carbon Dioxide (22-30) mmol/L BUN (7-17) mg/dL Creatinine (0.52-1.04) mg/dL POC Glucose (mg/dL) 112 H (75-99) mg/dL Magnesium (1.6-2.3) mg/dL Albumin (3.5-5.0) g/dL Urine Appearance (Clear) Urine Protein (Negative) Urine Ketones (Negative) Urine Blood (Negative) Ur Leukocyte Esterase (Negative) Urine RBC (0-5) /hpf Urine WBC (0-5) /hpf Urine WBC Clumps (None) /hpf Ur Squamous Epith Cells (0-4) /hpf Amorphous Sediment (None) /hpf Urine Bacteria (None) /hpf Thrombosis Risk Factor Assmnt - Choose All That Apply Any of the Below Risk Factors Present?: Yes Each Factor Represents 1 point: Abnormal pulmonary function (COPD), Swollen legs (current) Other Risk Factors: Yes Each Risk Factor Represents 2 Points: Malignancy Each Risk Factor Represents 3 Points: Age 75 years or older Other congenital or acquired thrombophilia - If yes, enter type in comment: No Thrombosis Risk Factor Assessment Total Risk Factor Score: 7 Thrombosis Risk Factor Assessment Level: High Risk Assessment and Plan Assessment: 1. Acute renal failure; possible ATN - Patient is admitted to ICU and is started on IV bicarbonate infusion; patient will have repeated doses of Kayexalate with repeat potassium level; vascular surgery is consulted for urgent placement of hemodialysis catheter and started hemodialysis; nephrology on board; continue with continuous EKG monitoring; monitor strict TERESE's, daily weights, renal function and electrolytes 2. Critical hyperkalemia/ hyponatremia; IV bicarbonate infusion; Kayexalate; monitor potassium levels closely; hemodialysis 3. MSSA bacteremia; consult ID 4. Acute UTI; patient started on IV Rocephin; urine culture and blood cultures are obtained 5. Chronic anemia; hemoglobin is stable at 7.8 this morning; we will monitor H&H closely and transfuse as hemoglobin is less than 7.0 6. Stage II coccygeal decubitus ulcer; wound care consult 7. Protein calorie malnutrition; consult dietary for nutrition recommendations DVT prophylaxis; SCDs/subcu heparin CODE STATUS; full code
[2020-09-02] MEDS ORDERED: MAGNESIUM SULFATE-D5W PMX 1 GM in DEXTROSE/WATER 1 100ML.BAG IVPB ONE (20:40)
--- NOTE | 2020-09-02 20:47 | CONS ---
CONSULTATION REASON FOR CONSULT: Renal failure, hyperkalemia. HISTORY OF PRESENT ILLNESS: Patient is an 79-year-old female who was brought into the hospital for abnormal renal function and increased lower extremity edema. Patient had been complaining of shortness of breath. There were some episodes of vomiting as well. No significant diarrhea. Patient's urine output has been low over the last 1-2 days prior to admission. Her serum creatinine was 8.1, and no other labs are available for comparison at this time. Serum potassium was 7.5 with a CO2 of 12. Patient received treatment for the hyperkalemia, IV medications in the ER. She has not had much urine output since admission. Blood pressure has been around 120s mmHg systolic. Patient has not had any fever. Home medications do not include nonsteroidal anti-inflammatory agents or MEME inhibitors at this time. Patient is not able to give a detailed history. PAST MEDICAL HISTORY: Past medical history is significant for COPD, history of colon cancer in 2013; details are not available. SOCIAL HISTORY: Negative for smoking, drug abuse or alcohol abuse. MEDICATIONS: Medications prior to admission included Zofran, iron, Lexapro, Colace, calcium, steroids. REVIEW OF SYSTEMS: Review of systems cannot be obtained in detail. Mostly as per HPI. PHYSICAL EXAMINATION: Patient is comfortable, awake. She is not in any acute distress. She is not able to give a detailed history. Blood pressure is 113/60, heart rate 88 per minute. Patient is afebrile. EXAMINATION OF THE HEART: S1 and S2. EXAMINATION OF LUNGS: Decreased breath sounds at bases. ABDOMEN: Soft, non-tender. Examination of lower extremities shows edema trace bilaterally. SAFETY TRAINER exam shows patient is moving all 4 extremities. LABS/IMAGING: Labs show sodium 128, potassium 7.5, chloride 105. CO2 is 12, BUN 88, serum creatinine 8.14, magnesium 1.3. UA shows WBCs many, WBC clumps 175 to 121, and 3+ protein, 1+ ketones, large blood. Chest x-ray on initial admission shows small left pleural effusion. ASSESSMENT: 1. Acute kidney injury, most likely acute tubular necrosis, currently in advanced renal failure with no urine output. I will proceed with placement of dialysis catheter, and patient will likely need dialysis due to persistent hyperkalemia and metabolic acidosis. We will try to obtain previous labs and more history. 2. Severe hyperkalemia associated with acute kidney injury, metabolic acidosis. Hemoglobin is low. Consider GI bleed as well; status post IV treatment and patient will likely need to be dialyzed, as she does not have significant urine output. 3. Severe metabolic acidosis, non gap secondary to renal failure. No history of diarrhea prior to admission. 4. Hyponatremia secondary to renal failure. 5. Urinary tract infection. 6. Anemia. Rule out GI bleed. PLAN: Repeat labs in 4 hours. Proceed with dialysis catheter placement. Check iron profile. Maintain patient on empiric antibiotics. Follow up on urine cultures. Check ultrasound of the kidneys and obtain further history from family. Thank you for this consultation. Will continue to follow the patient with you during her hospitalization. MMODL / IJN: [id number] /
[2020-09-02] MEDS: HEPARIN SODIUM,PORCINE 5,000 UNIT/ML 1 ML VIAL SQ SCH (20:59)
[2020-09-02] MEDS: NOREPINEPHRINE 8 MG in SODIUM CHLORIDE 0.9% 250 ML IV SCH (21:42)
--- NOTE | 2020-09-02 23:23 | PCN ---
PROCEDURE NOTE OPERATIVE REPORT: Placement of the right femoral triple-lumen catheter. PREOPERATIVE DIAGNOSIS: Acute renal failure and hyperkalemia. POSTOPERATIVE DIAGNOSIS: Acute renal failure and hyperkalemia. ANESTHESIA USED: 2 mL of 1% lidocaine. PROCEDURE DETAILS: The patient was placed in a supine position, the right groin was prepared in a sterile fashion and drapes were applied. The area in the groin was anesthetized with 2 mL of 1% lidocaine. Then, the right femoral vein was easily cannulated, and a guidewire was placed. The area around the guidewire was dilated with a dilator. A triple-lumen catheter was inserted over the guidewire, the guidewire was removed. Good blood flow noted in the 3 different ports of the triple-lumen catheter. The line was secured using 3.0 silk sutures. No evidence of any immediate complications. MMODL / IJN: [id number] /
--- NOTE | 2020-09-02 23:23 | OP ---
OPERATIVE REPORT OPERATIVE REPORT: Placement of a right radial arterial line. PREOPERATIVE DIAGNOSES: Acute renal failure and hyperkalemia. POSTOPERATIVE DIAGNOSES: Acute renal failure and hyperkalemia. ANESTHESIA USED: None deployed. PROCEDURE DESCRIPTION: The patient was placed in a supine position. The right wrist was prepared in a sterile fashion and drapes were applied. Then the right radial artery was palpated, cannulated easily, and a guidewire was placed. A Cook's catheter was inserted over the guidewire. The guidewire was removed. Good blood flow and good waveform noted. No evidence of any immediate complications. MMODL / IJN: [id number] /
--- NOTE | 2020-09-02 23:25 | P.CONS ---
History of Present Illness - Reason for Consult Consult date: 09/02/20 Urinary tract infection Requesting physician: Chandni Pina - Chief Complaint Weakness and lower extremity swelling x days - History of Present Illness Patient is 79 year female who was recently admitted and [facility] with fever she did have evidence of MSSA bacteremia in this patient with initial concern for possible gallbladder source the HIDA scan came back negative she also have a WBC scan that was negative follow blood culture were negative subsequently the patient discharged home on IV cefazolin. Patient should have completed he still have the PICC line in the left upper arm patient on presenting to the [facility] ER for evaluation of increasing swelling in her lower extremity short of breath denies having any fever and chills no cough no nausea no vomiting and abdominal pain or any diarrhea patient on around the was afebrile did have a normal white count however she was noticed to be in acute renal failure with a creatinine of 8.1 for an elevated potassium patient has been admitted to the ICU with consult to nephrology and vascular surgery Hansel catheter has been placed for dialysis she wasnoticed to have a positive UA patient was started on Rocephin questions was consulted for further management of antibiotic therapy Review of Systems Positive point has been mentioned in the HPI rest of the systems are negative Past Medical History Past Medical History: Cancer, COPD, Hyperlipidemia, Pneumonia, Renal Disease Additional Past Medical History / Comment(s): Recent UTI with sepsis/hospitalized 9 days/has midline for home antibiotics, chronic kidney disease, past UTIs, anemia/recently received transfusion, 2013 colon cancer/has colostomy, skin cancer with removals, chronic low back pain and delfin states 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 History of Any Multi-Drug Resistant Organisms: None Reported Past Surgical History: Bowel Resection, Tonsillectomy Additional Past Surgical History / Comment(s): Colectomy/colostomy, colonoscopies, midline to L arm, skin cancers removed from face. Past Anesthesia/Blood Transfusion Reactions: No Reported Reaction Additional Past Anesthesia/Blood Transfusion Reaction / Comm: Pt recently recei pelon blood without reaction. Past Psychological History: Depression Additional Psychological History / Comment(s): Pt resides with her delfin, Yanira, her delfin's spouse and children. Prior to recent hospitalization, pt was independent with walking but was discharged using cane/walker and just past couple days-too weak to use those. 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 Smoking Status: Never smoker Past Alcohol Use History: None Reported Past Drug Use History: None Reported - Past Family History Mother Family Medical History: Cancer Additional Family Medical History / Comment(s): Mother of ovarian cancer at the age of 70 yrs. Father Family Medical History: Liver Disease Additional Family Medical History / Comment(s): Father of cirrhosis at the age of 55 yrs. Medications and Allergies Home Medications Medication Instructions Recorded Confirmed Type Docusate [Colace] 100 mg PO BID PRN 09/02/20 09/02/20 History Escitalopram [Lexapro] 10 mg PO DAILY 09/02/20 09/02/20 History Ferrous Sulfate [Feosol] 325 mg PO DAILY 09/02/20 09/02/20 History Hydrocodone/Acetaminophen [[facility] 1 tab PO Q4HR PRN 09/02/20 09/02/20 History 7.5-325] Ondansetron [Zofran ODT] 4 mg PO Q8HR PRN 09/02/20 09/02/20 History Rosuvastatin Calcium 20 mg PO DAILY 09/02/20 09/02/20 History Spectravite Womens' Tablet 1 tab PO DAILY 09/02/20 09/02/20 History Uromag 140 mg PO BID 09/02/20 09/02/20 History methylPREDNISolone Dose Pack See Taper PO DIRECTED 09/02/20 09/02/20 History [Medrol Dose Pack] Allergies Allergy/AdvReac Type Severity Reaction Status Date / Time latex Allergy Rash/Hives Verified 09/02/20 09:36 Physical Exam Vitals: Vital Signs Temp Pulse Resp BP Pulse Ox 09/02/20 13:17 86 16 122/86 99 09/02/20 11:25 88 16 113/60 100 09/02/20 09:01 98 F 84 18 125/57 99 09/02/20 08:14 18 09/02/20 07:59 98 16 128/72 100 Intake and Output 09/02/20 09/02/20 09/02/20 06:59 14:59 22:59 Output Total 15 Balance -15 Output: Urine 15 Straight 15 Other: Weight 46.72 kg GENERAL DESCRIPTION: An elderly female lying in bed, no distress. No tachypnea or accessory muscle of respiration use. HEENT: Shows Pallor , no scleral icterus. Oral mucous membrane is dry. No pharyngeal erythema or thrush NECK: Trachea central, no thyromegaly. LUNGS: Unlabored breathing. Decreased because the base. No wheeze or crackle. HEART: S1, S2, regular rate and rhythm. No loud murmur ABDOMEN: Soft, no tenderness , guarding or rigidity, no organomegaly EXTREMITIES: No edema of feet. SKIN: No rash, no masses palpable. NEUROLOGICAL: The patient is awake, alert, oriented x2, mood and affect normal. Results CBC & Chem 7: 09/02/20 08:36 09/02/20 16:14 Labs: Abnormal Lab Results - Last 24 Hours (Table) 09/02/20 09/02/20 09/02/20 Range/Units 08:36 08:36 09:03 RBC 2.32 L (3.80-5.40) m/uL Hgb 7.8 L (11.4-16.0) gm/dL Hct 24.9 L (34.0-46.0) % MCV 107.6 H (80.0-100.0) fL Plt Count 145 L (150-450) k/uL Lymphocytes # 0.4 L (1.0-4.8) k/uL INR (<1.2) Sodium 128 L (137-145) mmol/L Potassium 7.5 H* (3.5-5.1) mmol/L Carbon Dioxide 12 L (22-30) mmol/L BUN 88 H (7-17) mg/dL Creatinine 8.14 H* (0.52-1.04) mg/dL POC Glucose (mg/dL) (75-99) mg/dL Magnesium 1.3 L (1.6-2.3) mg/dL Albumin 2.8 L (3.5-5.0) g/dL Urine Appearance Turbid H (Clear) Urine Protein 3+ H (Negative) Urine Ketones 1+ H (Negative) Urine Blood Large H (Negative) Ur Leukocyte Esterase Large H (Negative) Urine RBC 175 H (0-5) /hpf Urine WBC 121 H (0-5) /hpf Urine WBC Clumps Many H (None) /hpf Ur Squamous Epith Cells 6 H (0-4) /hpf Amorphous Sediment Occasional H (None) /hpf Urine Bacteria Few H (None) /hpf 09/02/20 09/02/20 09/02/20 Range/Units 11:00 11:13 13:05 RBC (3.80-5.40) m/uL Hgb (11.4-16.0) gm/dL Hct (34.0-46.0) % MCV (80.0-100.0) fL Plt Count (150-450) k/uL Lymphocytes # (1.0-4.8) k/uL INR 1.2 H (<1.2) Sodium (137-145) mmol/L Potassium 7.2 H* (3.5-5.1) mmol/L Carbon Dioxide (22-30) mmol/L BUN (7-17) mg/dL Creatinine (0.52-1.04) mg/dL POC Glucose (mg/dL) 112 H (75-99) mg/dL Magnesium (1.6-2.3) mg/dL Albumin (3.5-5.0) g/dL Urine Appearance (Clear) Urine Protein (Negative) Urine Ketones (Negative) Urine Blood (Negative) Ur Leukocyte Esterase (Negative) Urine RBC (0-5) /hpf Urine WBC (0-5) /hpf Urine WBC Clumps (None) /hpf Ur Squamous Epith Cells (0-4) /hpf Amorphous Sediment (None) /hpf Urine Bacteria (None) /hpf 09/02/20 Range/Units 14:09 RBC (3.80-5.40) m/uL Hgb (11.4-16.0) gm/dL Hct (34.0-46.0) % MCV (80.0-100.0) fL Plt Count (150-450) k/uL Lymphocytes # (1.0-4.8) k/uL INR (<1.2) Sodium (137-145) mmol/L Potassium (3.5-5.1) mmol/L Carbon Dioxide (22-30) mmol/L BUN (7-17) mg/dL Creatinine (0.52-1.04) mg/dL POC Glucose (mg/dL) 162 H (75-99) mg/dL Magnesium (1.6-2.3) mg/dL Albumin (3.5-5.0) g/dL Urine Appearance (Clear) Urine Protein (Negative) Urine Ketones (Negative) Urine Blood (Negative) Ur Leukocyte Esterase (Negative) Urine RBC (0-5) /hpf Urine WBC (0-5) /hpf Urine WBC Clumps (None) /hpf Ur Squamous Epith Cells (0-4) /hpf Amorphous Sediment (None) /hpf Urine Bacteria (None) /hpf Microbiology - Last 24 Hours (Table) 09/02/20 09:03 Urine Culture - Preliminary Urine,Voided Assessment and Plan Assessment: 1- patient presented to hospital with increasing weakness and shortness of breath and swelling in this patient and was with acute renal failure with elevated progression and it has significantly positive UA and possible component of enteric gram-negative urinary tract infection (1) Urinary tract infection Current Visit: Yes Status: Acute Code(s): N39.0 - URINARY TRACT INFECTION, SITE NOT SPECIFIED SNOMED Code(s): 69283205 Plan: 1-Rocephin 1 g IV piggyback daily 2-gentle IV fluid 3-once condition stabilizes patient will benefit from CT of abdominal pelvis We will follow on clinical condition and cultures to further adjust medication if needed Thank you for this consultation will follow this patient with you Time with Patient: Greater than 30
[2020-09-03] MEDS: HYDROCORTISONE 1% CREAM 30 GM TUBE TOPICAL PRN ×2 (04:03→20:36)
[2020-09-03] MEDS: CALAMINE/ZINC OXIDE LOTION 177 ML BTL TOPICAL PRN (04:03)
[2020-09-03] MEDS: DEXTROSE 5% IN WATER 1,000 ML with SODIUM BICARB (1 MEQ/ML) 150 ML IV SCH (04:30)
[2020-09-03 05:00] LABS: % Iron Saturation 32.82 (12.00-45.00)
[2020-09-03 05:34] LABS: Basophils # (A) 0.1 k/uL (0-0.2); Basophils % (A) 0 %; Eosinophils # (A) 0.9 k/uL (0-0.7); Eosinophils % (A) 4 %; HCT 28.3 % (34.0-46.0); HGB 8.8 gm/dL (11.4-16.0); Lymphocytes # (A) 0.7 k/uL (1.0-4.8); Lymphocytes % (A) 3 %; MCH 32.8 pg (25.0-35.0); MCHC 31.3 g/dL (31.0-37.0); MCV 104.8 fL (80.0-100.0); Macrocytosis Slight; Monocytes # (A) 0.9 k/uL (0-1.0); Monocytes % (A) 4 %; Neutrophils # (A) 19.5 k/uL (1.3-7.7); Neutrophils % (A) 86 %; Platelet Count 219 k/uL (150-450); RDW 13.8 % (11.5-15.5); WBC 22.6 k/uL (3.8-10.6)
[2020-09-03 05:46] LABS: Calcium 8.5 mg/dL (8.4-10.2); Magnesium 1.8 mg/dL (1.6-2.3); Potassium 5.5 mmol/L (3.5-5.1)
[2020-09-03] MEDS: HYDROmorphone 1 MG/ML 1 ML SYRINGE IVP PRN ×2 (06:21→16:06)
[2020-09-03] MEDS: NOREPINEPHRINE 8 MG in SODIUM CHLORIDE 0.9% 250 ML IV SCH ×2 (06:36→23:08)
--- NOTE | 2020-09-03 06:55 | XR ---
EXAMINATION TYPE: XR chest 1V DATE OF EXAM: 09/03/2020 COMPARISON: 09/02/2020 HISTORY: Abnormal x-ray TECHNIQUE: Single frontal view of the chest is obtained. FINDINGS: There is left lower infiltrate and small effusion. Interstitium. Minimal. Tiny right pleur al effusion. Diffuse osteopenia IMPRESSION: Stable x-ray correlate for COPD with bilateral infiltrate and small effusion. Differenti al diagnosis includes pneumonia. Mild CHF not excluded.
[2020-09-03] MEDS: HEPARIN SODIUM,PORCINE 5,000 UNIT/ML 1 ML VIAL SQ SCH ×2 (08:50→20:36)
[2020-09-03] MEDS: PANTOPRAZOLE 40 MG/10 ML VIAL IVP SCH (08:50)
[2020-09-03 09:44] LABS: Hepatitis A Antibody IgM Non-Reactive (Non-Reactive); Hepatitis B Core IgM Non-Reactive (Non-Reactive); Hepatitis B Surface AB- Quant 3.5 mIU/mL; Hepatitis B Surface Antibody Non-Reactive (Non-Reactive); Hepatitis B Surface Antigen Non-Reactive (Non-Reactive); Hepatitis C IgG Antibody Non-Reactive (Non-Reactive)
[2020-09-03] MEDS: ONDANSETRON 4 MG/2 ML VIAL IVP PRN (09:51)
[2020-09-03] MEDS ORDERED: SODIUM CHLORIDE 0.9% 500 ML 500 ML IV ONE (11:07)
[2020-09-03] MEDS: SODIUM CHLORIDE 0.9% 1,000 ML IV SCH (11:18)
--- NOTE | 2020-09-03 11:25 | P.PN ---
Subjective Progress Note Date: 09/03/20 Principal diagnosis: This is a 79-year-old female admitted with acute kidney injury with a creatinine of 8. No previous records are available she is unable to give a her history Supposedly she was at [facility] with bacteremia and urinary tract infection recently was discharged home on antibiotics. She was dialyzed yesterday and is scheduled for dialysis today again. She does have an ostomy bag, history of colon cancer, COPD. Currently she is feeling unwell nauseated. She is on bicarb drip as well as levo fed Blood pressure is in the 1:30 range mean arterial pressure is about in the 60s 7-70 range Urine output is documented at 40 mL per minute Objective - Vital Signs Vital signs: Vital Signs Temp 97.6 F 09/03/20 08:00 Pulse 105 H 09/03/20 11:00 Resp 12 09/03/20 11:00 BP 101/45 09/03/20 11:00 Pulse Ox 96 09/03/20 11:00 Intake & Output 09/02/20 09/03/20 09/03/20 18:59 06:59 18:59 Intake Total 240 2875.647 3488.301 Output Total 15 25 2 Balance 225 6095.862 9236.301 Weight 46.72 kg 61.6 kg Intake: IV 240 940 350 Calcium Gluconate 1 gm In 100 Sodium Chloride 0.9% 100 ml @ 100 mls/hr IVPB ONCE ONE Rx#:[id number] Dextrose 5% in Water 1, 140 840 350 000 ml @ 70 mls/hr IV . [id number] TOBIN with Sodium Bicarb (1 Meq/ml) 150 ml Rx#:[id number] Magnesium Sulfate-D5w Pmx 100 1 gm In Dextrose/Water 1 100ml.bag @ 100 mls/hr IVPB ONCE ONE Rx#: [id number] Intake, IV Titration 249.195 669.301 Amount Norepinephrine 8 mg In 249.195 119.301 Sodium Chloride 0.9% 250 ml @ 0.05 MCG/KG/MIN 4.52 mls/hr IV .Q24H TOBIN Rx#: [id number] Sodium Chloride 0.9% 500 500 ml 500 ml @ 999 mls/hr IV .Q31M ONE Rx#:[id number] cefTRIAXone 1 gm In 50 Sodium Chloride 0.9% 50 ml @ 100 mls/hr IVPB Q24HR [facility] Rx#:[id number] Output: Urine 15 25 2 Straight 15 Other: Voiding Method Indwelling Catheter Indwelling Catheter Indwelling Catheter ABP, PAP, CO, CI - Last Documented Arterial Blood Pressure 120/51 On examination she is awake alert oriented but weak and tired and unable to give any history has poor memory HEENT exam no JVP neck is supple no facial asymmetry Lungs are clear to auscultation fair air entry bilaterally Heart sounds are unremarkable no murmur rub gallop Abdomen soft nontender ostomy bag Logically awake alert but poor memory Extremity exam reveals mild edema - Labs CBC & Chem 7: 09/03/20 05:16 09/03/20 05:16 Labs: Abnormal Lab Results - Last 24 Hours (Table) 09/02/20 09/02/20 09/02/20 Range/Units 11:00 11:13 13:05 WBC (3.8-10.6) k/uL RBC (3.80-5.40) m/uL Hgb (11.4-16.0) gm/dL Hct (34.0-46.0) % MCV (80.0-100.0) fL Neutrophils # (1.3-7.7) k/uL Lymphocytes # (1.0-4.8) k/uL Eosinophils # (0-0.7) k/uL INR 1.2 H (<1.2) Sodium (137-145) mmol/L Potassium 7.2 H* (3.5-5.1) mmol/L BUN (7-17) mg/dL Creatinine (0.52-1.04) mg/dL Glucose (74-99) mg/dL POC Glucose (mg/dL) 112 H (75-99) mg/dL TIBC (228-460) ug/dL 09/02/20 09/02/20 09/03/20 Range/Units 14:09 16:14 05:16 WBC 22.6 H (3.8-10.6) k/uL RBC 2.70 L (3.80-5.40) m/uL Hgb 8.8 L (11.4-16.0) gm/dL Hct 28.3 L (34.0-46.0) % MCV 104.8 H (80.0-100.0) fL Neutrophils # 19.5 H (1.3-7.7) k/uL Lymphocytes # 0.7 L (1.0-4.8) k/uL Eosinophils # 0.9 H (0-0.7) k/uL INR (<1.2) Sodium (137-145) mmol/L Potassium 6.7 H* (3.5-5.1) mmol/L BUN (7-17) mg/dL Creatinine (0.52-1.04) mg/dL Glucose (74-99) mg/dL POC Glucose (mg/dL) 162 H (75-99) mg/dL TIBC 195 L (228-460) ug/dL 09/03/20 Range/Units 05:16 WBC (3.8-10.6) k/uL RBC (3.80-5.40) m/uL Hgb (11.4-16.0) gm/dL Hct (34.0-46.0) % MCV (80.0-100.0) fL Neutrophils # (1.3-7.7) k/uL Lymphocytes # (1.0-4.8) k/uL Eosinophils # (0-0.7) k/uL INR (<1.2) Sodium 135 L (137-145) mmol/L Potassium 5.5 H (3.5-5.1) mmol/L BUN 64 H (7-17) mg/dL Creatinine 6.28 H (0.52-1.04) mg/dL Glucose 113 H (74-99) mg/dL POC Glucose (mg/dL) (75-99) mg/dL TIBC (228-460) ug/dL Microbiology - Last 24 Hours (Table) 09/02/20 09:03 Urine Culture - Preliminary Urine,Voided Assessment and Plan Assessment: Impression 1. Acute kidney injury possibly from recent antibiotics or bacteremia old records are not available show that your [facility] hospital presumably 2. History of bacteremia recently with UTI 3. Hyperkalemia resolved with dialysis. Etiology is acute kidney injury 4. Severe acidosis with secondary to ostomy drainage. Improved with dialysis and bicarbonate drip 5. Anemia secondary to chronic kidney disease, ruled out iron deficiency defici ency, iron saturation is 32% Condition 1. Continue dialysis today 2. Discontinue the bicarbonate drip 3. Start normal saline at 60 an hour for maintenance. She does have edema but her x-rays clear of any congestive heart failure and she might be intravascularly volume depleted from the ostomy drainage Time with Patient: Greater than 30
--- NOTE | 2020-09-03 13:08 | PN ---
PROGRESS NOTE DATE OF SERVICE: 09/03/2020 REASON FOR FOLLOWUP: Urinary tract infection and elevated white count. INTERVAL HISTORY: The patient is currently afebrile. Patient is breathing comfortably. Blood pressure is stable. Denies any chest pain or cough. No nausea or vomiting. Has been complaining of low back pain. PHYSICAL EXAMINATION: Blood pressure 115/48 with a pulse of 96, temperature 97. She is 98% on room air. General description is an elderly female lying in bed in no distress. Respiratory system: Unlabored breathing. Clear to auscultation anteriorly. Heart S1, S2. Regular rate and rhythm. ABDOMEN: Soft, no tenderness. LABS: Hemoglobin 8.1, white count 22.6, BUN of 64, creatinine is 6.28. DIAGNOSTIC IMPRESSION AND PLAN: Patient with admission to the hospital with acute renal failure. White count has jumped up significantly to 22,000. The patient did have a positive UA and is feeling nauseated. CT of abdomen and pelvis with oral contrast did not show any evidence of any intraabdominal source. Continue Rocephin and monitor clinical course closely. MMODL / IJN: [id number] / MTDD
--- NOTE | 2020-09-03 13:35 | P.PN ---
Subjective Progress Note Date: 09/03/20 Principal diagnosis: Acute kidney injury and hyperkalemia 79-year-old white female patient of Dr. Bojorquez from the [facility] who had a recent hospitalization 3 weeks ago at the [facility] for acute urinary tract infection and sepsis. Patient was released home with the left upper midline access for antibiotic infusions. Yesterday patient went to see her PCP for routine blood work which revealed significantly abnormal renal function, and hypokalemia and patient was directed to come to the emergency department for evaluation and treatment. Patient is complaining of being more short of breath, she has developed pressure ulcer on her coccyx stage II, which is causing her discomfort, she also has a diffuse papular rash all over her body, arms, torso, legs, which is itchy. She denied any chest pain, denied any cough, phlegm production. She has a colostomy in place for previous history of colon resection for colon cancer, he denies any nausea vomiting or diarrhea. She denies any headaches. Apparently patient has not been able to eat much. She has recently been anemic and has required blood transfusion. Her daughters at the bedside and providing much of the history although she is not sure of the details, she is not sure of the name of the antibiotic the patient was discharged home on, or whether or not patient had any diarrhea at home. Patient's past medical history includes COPD, previous history of smoking, hyperlipidemia, chronic kidney disease, previous history of urinary tract infections, moderate protein calorie malnutrition, colon cancer in 2014, chronic back pain, scoliosis. She was discharged from the [facility] on 08/18/2020, her blood cultures were positive for MSSA, and echocardiogram revealed no vegetation. In the emergency department blood work showed BUN of 88, creatinine of 8.14, with potassium of 7.5 which was treated with insulin, 50% dextrose, calcium gluconate, nephrology has been consulted, troponin is negative, LFTs are within normal limits, urinalysis is significantly infected, urine culture has been sent, blood cultures have been sent, patient is anuric, she was given an amp of sodium bicarbonate, and she is on bicarbonate infusion at a rate of 70 ML per hour. Repeat blood work showed persistent hyperkalemia with potassium of 7.2, the plan is for another lab work, and nephrology is planning on vascular surgery consult for placement of temporary hemodialysis catheter and initiation of hemodialysis. Patient was reevaluated today on 09/03/20, patient was seen yesterday on consultation, and she was started on hemodialysis for hyperkalemia and acute kidney injury. Her kidney injury was felt to be secondary to antibiotics, and possibly secondary to her sepsis and bacteremia for which she was treated at [facility]. Patient was eventually discharged on antibiotics at home, and she developed hyperkalemia with acute kidney injury. I saw the patient yesterday, and I established central IV access, and a right radial arterial line was placed, she was also seen by vascular surgery and a dialysis catheter was placed patient received dialysis yesterday, and her potassium is down to 5.5 today. She is on Rocephin for presumptive urinary tract infection, she does have leukocytosis with WBC count of 22,000 today. Patient is requiring norepinephrine at 0.17 mcg/kg/m, and her mean arterial pressure is about 60 today. Patient is having episodes of dry heaves, but no vomiting. Objective - Vital Signs Vital signs: Vital Signs Temp 97.0 F L 09/03/20 12:00 Pulse 94 09/03/20 13:00 Resp 14 09/03/20 13:00 BP 106/43 09/03/20 13:00 Pulse Ox 97 09/03/20 13:00 Intake & Output 09/02/20 09/03/20 09/03/20 18:59 06:59 18:59 Intake Total 240 6681.803 4060.400 Output Total 15 25 2 Balance 225 8591.229 0076.400 Weight 46.72 kg 61.6 kg 61.6 kg Intake: IV 240 940 350 Calcium Gluconate 1 gm In 100 Sodium Chloride 0.9% 100 ml @ 100 mls/hr IVPB ONCE ONE Rx#:[id number] Dextrose 5% in Water 1, 140 840 350 000 ml @ 70 mls/hr IV . [id number] TOBIN with Sodium Bicarb (1 Meq/ml) 150 ml Rx#:[id number] Magnesium Sulfate-D5w Pmx 100 1 gm In Dextrose/Water 1 100ml.bag @ 100 mls/hr IVPB ONCE ONE Rx#: [id number] Intake, IV Titration 249.195 757.400 Amount Norepinephrine 8 mg In 249.195 147.400 Sodium Chloride 0.9% 250 ml @ 0.05 MCG/KG/MIN 4.52 mls/hr IV .Q24H TOBIN Rx#: [id number] Sodium Chloride 0.9% 1, 60 000 ml @ 60 mls/hr IV . [id number] TOBIN Rx#:[id number] Sodium Chloride 0.9% 500 500 ml 500 ml @ 999 mls/hr IV .Q31M ONE Rx#:[id number] cefTRIAXone 1 gm In 50 Sodium Chloride 0.9% 50 ml @ 100 mls/hr IVPB Q24HR [facility] Rx#:[id number] Output: Urine 15 25 2 Straight 15 Other: Voiding Method Indwelling Catheter Indwelling Catheter Indwelling Catheter ABP, PAP, CO, CI - Last Documented Arterial Blood Pressure 132/40 - Exam GENERAL EXAM: Alert, frail-looking 79-year-old white female resting in bed, having intermittent episodes of dry heaves. HEENT: PERRLA, EOMI, no icterus, no neck masses, no JVD, no stridor. CHEST: No chest wall deformity. Symmetrical expansion. LUNGS: Equal air entry with no crackles, wheeze, rhonchi or dullness. CVS: Regular rate and rhythm, normal S1 and S2, no gallops, no murmurs, no rubs ABDOMEN: Soft, nontender. No hepatosplenomegaly, normal bowel sounds, no guarding or rigidity. EXTREMITIES: No clubbing, no edema, no cyanosis, 2+ pulses and upper and lower extremities. MUSCULOSKELETAL: Muscle strength and tone normal. SPINE: No scoliosis or deformity SKIN: Stage II decubitus ulcer on her coccyx, CENTRAL NERVOUS SYSTEM: Alert and oriented -3. No focal deficits, tone is normal in all 4 extremities. PSYCHIATRIC: Alert and oriented -3. Appropriate affect. Intact judgment and insight. - Labs CBC & Chem 7: 09/03/20 05:16 09/03/20 05:16 Labs: Abnormal Lab Results - Last 24 Hours (Table) 09/02/20 09/02/20 09/03/20 Range/Units 14:09 16:14 05:16 WBC 22.6 H (3.8-10.6) k/uL RBC 2.70 L (3.80-5.40) m/uL Hgb 8.8 L (11.4-16.0) gm/dL Hct 28.3 L (34.0-46.0) % MCV 104.8 H (80.0-100.0) fL Neutrophils # 19.5 H (1.3-7.7) k/uL Lymphocytes # 0.7 L (1.0-4.8) k/uL Eosinophils # 0.9 H (0-0.7) k/uL Sodium (137-145) mmol/L Potassium 6.7 H* (3.5-5.1) mmol/L BUN (7-17) mg/dL Creatinine (0.52-1.04) mg/dL Glucose (74-99) mg/dL POC Glucose (mg/dL) 162 H (75-99) mg/dL TIBC 195 L (228-460) ug/dL 09/03/20 Range/Units 05:16 WBC (3.8-10.6) k/uL RBC (3.80-5.40) m/uL Hgb (11.4-16.0) gm/dL Hct (34.0-46.0) % MCV (80.0-100.0) fL Neutrophils # (1.3-7.7) k/uL Lymphocytes # (1.0-4.8) k/uL Eosinophils # (0-0.7) k/uL Sodium 135 L (137-145) mmol/L Potassium 5.5 H (3.5-5.1) mmol/L BUN 64 H (7-17) mg/dL Creatinine 6.28 H (0.52-1.04) mg/dL Glucose 113 H (74-99) mg/dL POC Glucose (mg/dL) (75-99) mg/dL TIBC (228-460) ug/dL Microbiology - Last 24 Hours (Table) 09/02/20 09:03 Urine Culture - Preliminary Urine,Voided Assessment and Plan Assessment: Impression: Acute kidney injury, acute tumor necrosis, and acute hyperkalemia, exact etiology is not clear, please refer to nephrology. Recent hospitalization for urinary tract infection and MSSA bacteremia at [facility]. History of colon cancer. And previous colostomy. This was in 2013. History of nonobstructing renal stones and left kidney. Stage II decubitus ulcer on coccyx. Chronic low back pain. Moderate severe protein calorie malnutrition. History of COPD, presently inactive. Recommendation: Continue to monitor the patient in the ICU for the next 24 hours. Continue hemodialysis as per nephrology on the case. Continue antibiotics and tailor accordingly to the final culture from the urine. The urine culture is still pending. Infectious disease to see on consultation. Continue GI and DVT prophylaxis. Nutritional support and to be seen by dietitian. We'll continue to follow. Time with Patient: Less than 30
[2020-09-03] MEDS ORDERED: MIDODRINE 5 MG TAB PO ONE (21:30)
[2020-09-04] MEDS: NOREPINEPHRINE 8 MG in SODIUM CHLORIDE 0.9% 250 ML IV SCH (03:47)
[2020-09-04] MEDS: SODIUM CHLORIDE 0.9% 1,000 ML IV SCH (03:48)
[2020-09-04 05:09] LABS: Basophils # (A) 0.1 k/uL (0-0.2); Basophils % (A) 0 %; Eosinophils # (A) 1.2 k/uL (0-0.7); Eosinophils % (A) 8 %; Hypochromasia Slight; Lymphocytes # (A) 0.8 k/uL (1.0-4.8); Lymphocytes % (A) 6 %; MCH 33.6 pg (25.0-35.0); MCHC 31.5 g/dL (31.0-37.0); MCV 106.6 fL (80.0-100.0); Macrocytosis Moderate; Mean Platelet Volume 7.9; Monocytes # (A) 0.8 k/uL (0-1.0); Monocytes % (A) 6 %; Neutrophils # (A) 11.4 k/uL (1.3-7.7); Neutrophils % (A) 78 %; Platelet Count 116 k/uL (150-450); RBC 2.16 m/uL (3.80-5.40); RDW 13.3 % (11.5-15.5); WBC 14.7 k/uL (3.8-10.6)
[2020-09-04 05:13] LABS: Calcium 7.3 mg/dL (8.4-10.2); Potassium 4.5 mmol/L (3.5-5.1)
[2020-09-04] MEDS: ONDANSETRON 4 MG/2 ML VIAL IVP PRN ×2 (06:12→12:35)
[2020-09-04 06:21] LABS: HGB 7.3 gm/dL (11.4-16.0)
[2020-09-04] MEDS: HYDROCORTISONE 1% CREAM 30 GM TUBE TOPICAL PRN ×2 (07:02→19:59)
[2020-09-04] MEDS: CALAMINE/ZINC OXIDE LOTION 177 ML BTL TOPICAL PRN (07:02)
[2020-09-04] MEDS: HEPARIN SODIUM,PORCINE 5,000 UNIT/ML 1 ML VIAL SQ SCH ×2 (08:09→21:40)
[2020-09-04] MEDS: PANTOPRAZOLE 40 MG/10 ML VIAL IVP SCH (08:09)
--- NOTE | 2020-09-04 08:10 | XR ---
EXAMINATION TYPE: XR chest 1V portable DATE OF EXAM: 09/04/2020 Comparison: 09/03/2020 Clinical History: 79-year-old female assess fluid status Findings: Left heart margin obscured by adjacent pleural parenchymal opacity. Facet is increasing from prior, n ow moderate effusion. New blunting of the right costophrenic angle. Impression: Increasing, now moderate left pleural effusion with adjacent atelectasis and or consolidation. New tr pam right pleural effusion.
[2020-09-04] MEDS: SODIUM CHLORIDE 0.9% 500 ML 500 ML IV SCH ×2 (10:17→10:18)
[2020-09-04] MEDS: PIPERACILLIN-TAZOBACTAM 3.375 GM in SODIUM CHLORIDE 0.9% 100 ML IVPB SCH ×3 (10:20→23:45)
--- NOTE | 2020-09-04 11:48 | P.PN ---
Subjective Progress Note Date: 09/04/20 Principal diagnosis: Acute kidney injury and hyperkalemia 79-year-old white female patient of Dr. Bojorquez from the [facility] who had a recent hospitalization 3 weeks ago at the [facility] for acute urinary tract infection and sepsis. Patient was released home with the left upper midline access for antibiotic infusions. Yesterday patient went to see her PCP for routine blood work which revealed significantly abnormal renal function, and hypokalemia and patient was directed to come to the emergency department for evaluation and treatment. Patient is complaining of being more short of breath, she has developed pressure ulcer on her coccyx stage II, which is causing her discomfort, she also has a diffuse papular rash all over her body, arms, torso, legs, which is itchy. She denied any chest pain, denied any cough, phlegm production. She has a colostomy in place for previous history of colon resection for colon cancer, he denies any nausea vomiting or diarrhea. She denies any headaches. Apparently patient has not been able to eat much. She has recently been anemic and has required blood transfusion. Her daughters at the bedside and providing much of the history although she is not sure of the details, she is not sure of the name of the antibiotic the patient was discharged home on, or whether or not patient had any diarrhea at home. Patient's past medical history includes COPD, previous history of smoking, hyperlipidemia, chronic kidney disease, previous history of urinary tract infections, moderate protein calorie malnutrition, colon cancer in 2014, chronic back pain, scoliosis. She was discharged from the [facility] on 08/18/2020, her blood cultures were positive for MSSA, and echocardiogram revealed no vegetation. In the emergency department blood work showed BUN of 88, creatinine of 8.14, with potassium of 7.5 which was treated with insulin, 50% dextrose, calcium gluconate, nephrology has been consulted, troponin is negative, LFTs are within normal limits, urinalysis is significantly infected, urine culture has been sent, blood cultures have been sent, patient is anuric, she was given an amp of sodium bicarbonate, and she is on bicarbonate infusion at a rate of 70 ML per hour. Repeat blood work showed persistent hyperkalemia with potassium of 7.2, the plan is for another lab work, and nephrology is planning on vascular surgery consult for placement of temporary hemodialysis catheter and initiation of hemodialysis. Patient was reevaluated today on 09/03/20, patient was seen yesterday on consultation, and she was started on hemodialysis for hyperkalemia and acute kidney injury. Her kidney injury was felt to be secondary to antibiotics, and possibly secondary to her sepsis and bacteremia for which she was treated at [facility]. Patient was eventually discharged on antibiotics at home, and she developed hyperkalemia with acute kidney injury. I saw the patient yesterday, and I established central IV access, and a right radial arterial line was placed, she was also seen by vascular surgery and a dialysis catheter was placed patient received dialysis yesterday, and her potassium is down to 5.5 today. She is on Rocephin for presumptive urinary tract infection, she does have leukocytosis with WBC count of 22,000 today. Patient is requiring norepinephrine at 0.17 mcg/kg/m, and her mean arterial pressure is about 60 today. Patient is having episodes of dry heaves, but no vomiting. Patient was reevaluated today on 09/04/20, remains in the ICU, patient presented initially with hyperkalemia and acute kidney injury she was recently treated at [facility] for urinary tract infection and gram-negative bacteremia. Patient is now on hemodialysis, chest x-ray is showing worsening of the left lower lobe with some component of pulmonary edema and suspect underlying pneumonia. Patient has been on Rocephin, and she is being followed by infectious disease, may have to consider broadening the spectrum of her coverage, but patient had recent issues related to antibiotics and contributing to her acute kidney injury. Hence we'll let infectious disease decided on broadening the spectrum of antibiotics. In the meantime patient is being dialyzed, and she is followed by nephrology regarding her renal status. Patient is still complaining of intermittent episodes of dry heaves, minimal shortness of breath, no cough, no wheezing, no fever, no chills, no hemoptysis and no chest pain. Labs today showed improvement in her WBC count down to 14.7 hemoglobin is 7.3. Electrolytes are normal renal profile showed a BUN of 40 creatinine of 4.52. Findings on the chest x-ray are a bit concerning specially in the left lower lobe Objective - Vital Signs Vital signs: Vital Signs Temp 98.1 F 09/04/20 08:00 Pulse 94 09/04/20 11:00 Resp 22 09/04/20 11:00 BP 119/53 09/04/20 08:30 Pulse Ox 99 09/04/20 11:00 Intake & Output 09/03/20 09/04/20 09/04/20 18:59 06:59 18:59 Intake Total 0211.026 2128.560 283.214 Output Total 502 308 305 Balance 544.900 8485.560 -21.786 Weight 61.6 kg 62.9 kg Intake: IV 350 660 120 Dextrose 5% in Water 1, 350 000 ml @ 70 mls/hr IV . [id number] TOBIN with Sodium Bicarb (1 Meq/ml) 150 ml Rx#:[id number] Sodium Chloride 0.9% 1, 660 120 000 ml @ 60 mls/hr IV . [id number] TOBIN Rx#:[id number] Intake, IV Titration 1134.396 560.560 163.214 Amount Dextrose 5% in Water 1, 250 000 ml @ 70 mls/hr IV . [id number] TOBIN with Sodium Bicarb (1 Meq/ml) 150 ml Rx#:[id number] Norepinephrine 8 mg In 164.396 250.560 13.214 Sodium Chloride 0.9% 250 ml @ 0.05 MCG/KG/MIN 4.52 mls/hr IV .Q24H [facility] Rx#: [id number] Piperacillin-Tazobactam 3 50 .375 gm In Sodium Chloride 0.9% 100 ml @ 25 mls/hr IVPB Q8HR [facility] Rx# :[id number] Sodium Chloride 0.9% 1, 420 60 000 ml @ 60 mls/hr IV . [id number] [facility] Rx#:[id number] Sodium Chloride 0.9% 500 50 ml 500 ml @ 20 mls/hr IV .Q24H [facility] Rx#:[id number] Sodium Chloride 0.9% 500 500 ml 500 ml @ 999 mls/hr IV .Q31M ONE Rx#:[id number] cefTRIAXone 1 gm In 50 50 Sodium Chloride 0.9% 50 ml @ 100 mls/hr IVPB Q24HR [facility] Rx#:[id number] Oral 250 Output: Urine 2 8 5 Stool 300 300 Hemodialysis 500 Other: Voiding Method Indwelling Catheter Indwelling Catheter Indwelling Catheter ABP, PAP, CO, CI - Last Documented Arterial Blood Pressure 132/43 - Exam GENERAL EXAM: Alert, frail-looking 79-year-old white female resting in bed, frail looking, in no distress. HEENT: PERRLA, EOMI, no icterus, no neck masses, no JVD, no stridor. CHEST: No chest wall deformity. Symmetrical expansion. LUNGS: Equal air entry crackles at the left base. No rhonchi no wheezes. CVS: Regular rate and rhythm, normal S1 and S2, no gallops, no murmurs, no rubs ABDOMEN: Soft, nontender. No hepatosplenomegaly, normal bowel sounds, no guarding or rigidity. EXTREMITIES: No clubbing, no edema, no cyanosis, 2+ pulses and upper and lower extremities. MUSCULOSKELETAL: Muscle strength and tone normal. SPINE: No scoliosis or deformity SKIN: Stage II decubitus ulcer on her coccyx, CENTRAL NERVOUS SYSTEM: Alert and oriented -3. No focal deficits, tone is normal in all 4 extremities. PSYCHIATRIC: Alert and oriented -3. Appropriate affect. Intact judgment and insight. - Labs CBC & Chem 7: 09/04/20 04:31 09/04/20 04:31 Labs: Abnormal Lab Results - Last 24 Hours (Table) 09/04/20 09/04/20 Range/Units 04:31 04:31 WBC 14.7 H (3.8-10.6) k/uL RBC 2.16 L (3.80-5.40) m/uL Hgb 7.3 L D (11.4-16.0) gm/dL Hct 23.0 L (34.0-46.0) % MCV 106.6 H (80.0-100.0) fL Plt Count 116 L (150-450) k/uL Neutrophils # 11.4 H (1.3-7.7) k/uL Lymphocytes # 0.8 L (1.0-4.8) k/uL Eosinophils # 1.2 H (0-0.7) k/uL Sodium 135 L (137-145) mmol/L BUN 40 H (7-17) mg/dL Creatinine 4.52 H (0.52-1.04) mg/dL Glucose 108 H (74-99) mg/dL Calcium 7.3 L (8.4-10.2) mg/dL Microbiology - Last 24 Hours (Table) 10/16/20 16:31 Blood Culture - Preliminary Blood No Growth after 24 hours 09/02/20 16:14 Blood Culture - Preliminary Blood No Growth after 24 hours 09/02/20 09:03 Urine Culture - Final Urine,Voided Assessment and Plan Assessment: Impression: Acute kidney injury, acute tubular necrosis, and acute hyperkalemia, exact etiology is not clear, please refer to nephrology. Recent hospitalization for urinary tract infection and MSSA bacteremia at [facility]. History of colon cancer. And previous colostomy. This was in 2013. History of nonobstructing renal stones and left kidney. Stage II decubitus ulcer on coccyx. Chronic low back pain. Moderate severe protein calorie malnutrition. History of COPD, presently inactive. Suspect some component of fluid overload and pulmonary edema related to her underlying kidney disease, however the possibility of left lower lobe pneumonia is not entirely ruled out. Recommendation: Continue to monitor the patient in the ICU Infectious disease to consider broadening the spectrum of antibiotics, patient is presently on Rocephin for urinary tract infection. Continue hemodialysis as per nephrology on the case. Consider ultrafiltration. As the patient may be developing some component of fluid overload. Continue GI and DVT prophylaxis. Nutritional support GI and DVT prophylaxis. We'll continue to follow, prognosis is definitely poor and guarded. Time with Patient: Less than 30
--- NOTE | 2020-09-04 12:26 | P.PN ---
Subjective Progress Note Date: 09/04/20 Principal diagnosis: This is a 79-year-old female admitted with acute kidney injury with a creatinine of 8. No previous records are available she is unable to give a her history in detail. Supposedly she was at [facility] with bacteremia and urinary tract infection recently was discharged home on antibiotics. She was dialyzed 2 days in a row on Saturday and Saturday yesterday. This morning she is feeling fair has no appetite. She is comfortable though. Vital signs are stable. No urine output. She was on a levo fed drip that has been discontinued. She does have an ostomy bag, history of colon cancer, COPD. Her chest x-ray though she is showing new left pleural effusion with atelectasis Objective - Vital Signs Vital signs: Vital Signs Temp 98.1 F 09/04/20 08:00 Pulse 94 09/04/20 11:00 Resp 22 09/04/20 11:00 BP 119/53 09/04/20 08:30 Pulse Ox 99 09/04/20 11:00 Intake & Output 09/03/20 09/04/20 09/04/20 18:59 06:59 18:59 Intake Total 4139.344 2567.560 283.214 Output Total 502 308 305 Balance 608.843 5950.560 -21.786 Weight 61.6 kg 62.9 kg Intake: IV 350 660 120 Dextrose 5% in Water 1, 350 000 ml @ 70 mls/hr IV . [id number] TOBIN with Sodium Bicarb (1 Meq/ml) 150 ml Rx#:[id number] Sodium Chloride 0.9% 1, 660 120 000 ml @ 60 mls/hr IV . [id number] [facility] Rx#:[id number] Intake, IV Titration 1134.396 560.560 163.214 Amount Dextrose 5% in Water 1, 250 000 ml @ 70 mls/hr IV . [id number] TOBIN with Sodium Bicarb (1 Meq/ml) 150 ml Rx#:[id number] Norepinephrine 8 mg In 164.396 250.560 13.214 Sodium Chloride 0.9% 250 ml @ 0.05 MCG/KG/MIN 4.52 mls/hr IV .Q24H [facility] Rx#: [id number] Piperacillin-Tazobactam 3 50 .375 gm In Sodium Chloride 0.9% 100 ml @ 25 mls/hr IVPB Q8HR [facility] Rx# :[id number] Sodium Chloride 0.9% 1, 420 60 000 ml @ 60 mls/hr IV . [id number] [facility] Rx#:[id number] Sodium Chloride 0.9% 500 50 ml 500 ml @ 20 mls/hr IV .Q24H [facility] Rx#:[id number] Sodium Chloride 0.9% 500 500 ml 500 ml @ 999 mls/hr IV .Q31M ONE Rx#:[id number] cefTRIAXone 1 gm In 50 50 Sodium Chloride 0.9% 50 ml @ 100 mls/hr IVPB Q24HR [facility] Rx#:[id number] Oral 250 Output: Urine 2 8 5 Stool 300 300 Hemodialysis 500 Other: Voiding Method Indwelling Catheter Indwelling Catheter Indwelling Catheter ABP, PAP, CO, CI - Last Documented Arterial Blood Pressure 132/43 On examination she seems comfortable awake and alert oriented. HEENT exam no JVP neck is supple no facial asymmetry Lungs are significantly clear to auscultation in spite of the chest x-ray finding showing left pleural effusion Heart sounds are unremarkable for any murmur rub gallop Abdomen soft nontender Extremity exam was minimal edema Neurologically awake alert oriented 3 able to give me some history better than Yesterday - Labs CBC & Chem 7: 09/04/20 04:31 09/04/20 04:31 Labs: Abnormal Lab Results - Last 24 Hours (Table) 09/04/20 09/04/20 Range/Units 04:31 04:31 WBC 14.7 H (3.8-10.6) k/uL RBC 2.16 L (3.80-5.40) m/uL Hgb 7.3 L D (11.4-16.0) gm/dL Hct 23.0 L (34.0-46.0) % MCV 106.6 H (80.0-100.0) fL Plt Count 116 L (150-450) k/uL Neutrophils # 11.4 H (1.3-7.7) k/uL Lymphocytes # 0.8 L (1.0-4.8) k/uL Eosinophils # 1.2 H (0-0.7) k/uL Sodium 135 L (137-145) mmol/L BUN 40 H (7-17) mg/dL Creatinine 4.52 H (0.52-1.04) mg/dL Glucose 108 H (74-99) mg/dL Calcium 7.3 L (8.4-10.2) mg/dL Microbiology - Last 24 Hours (Table) 09/02/20 16:31 Blood Culture - Preliminary Blood No Growth after 24 hours 09/02/20 16:14 Blood Culture - Preliminary Blood No Growth after 24 hours 09/02/20 09:03 Urine Culture - Final Urine,Voided Assessment and Plan Assessment: Impression 1. Acute kidney injury possibly from recent antibiotics or bacteremia when she was admitted at [facility] recently, old records are not available currently hemodialysis dependent dialyzed on Saturday and Saturday. No urine output 2. History of bacteremia recently with UTI 3. Hyperkalemia resolved with dialysis. Etiology is acute kidney injury 4. Severe acidosis with secondary to ostomy drainage. Improved with dialysis and bicarbonate drip, off of bicarbonate drip bicarb is stable at 25 5. Anemia secondary to chronic kidney disease, ruled out iron deficiency deficiency, iron saturation is 32%. Hemoglobin is down to 7.3 from 8.8 yest erday Condition 1. Continue dialysis tomorrow, would try to take off 2 L over 300 half hours 2. Workup of the left pleural effusion which is new 3.
[2020-09-04] MEDS ORDERED: HYDROcodone/APAP 7.5-325MG 1 EACH TAB PO ONE (13:24)
--- NOTE | 2020-09-04 15:21 | P.PN ---
Subjective Progress Note Date: 09/03/20 Principal diagnosis: Acute kidney injury and hyperkalemia 79-year-old female with a past medical history significant for a recent urinary tract infection which caused her sepsis. Patient started antibiotics in the hospital after 9 days was released home with the midline access for more antibiotics. Patient also has been told she has kidney failure and so she has had increased swelling in her legs and decided to come the emergency department. Patient complains that she's feeling a little more short of breath. Patient denies any fever chills per patient denies chest pain or palpitations. Patient denies headache patient denies numbness weakness. Patient denies any abdominal pain but she's very nauseated hasn't been able to eat much.patient states recently she's also been anemic and had be transfused a unit of blood transferred. 09/03/20; Patient is seen and evaluated in ICU; started on hemodialysis for hyperkalemia and acute kidney injury. Her kidney injury was felt to be secondary to antibiotics, and possibly secondary to her sepsis and bacteremia for which she was treated at [facility]. Patient was eventually discharged on antibiotics at home, and she developed hyperkalemia with acute kidney injury. Patient was seen by vascular surgery and a dialysis catheter was placed; patient received dialysis yesterday, and her potassium is down to 5.5 today. Patient remains on Rocephin for presumptive urinary tract infection, she does have leukocytosis with WBC count of 22,000 today. Patient is currently on norepinephrine Objective - Vital Signs Vital signs: Vital Signs Temp 97.0 F L 09/03/20 12:00 Pulse 95 09/03/20 15:00 Resp 15 09/03/20 15:00 BP 104/64 09/03/20 15:00 Pulse Ox 100 09/03/20 15:00 Intake & Output 09/02/20 09/03/20 09/03/20 18:59 06:59 18:59 Intake Total 240 4370.808 4410.400 Output Total 15 25 2 Balance 225 7797.681 1903.400 Weight 46.72 kg 61.6 kg 61.6 kg Intake: IV 240 940 350 Calcium Gluconate 1 gm In 100 Sodium Chloride 0.9% 100 ml @ 100 mls/hr IVPB ONCE ONE Rx#:[id number] Dextrose 5% in Water 1, 140 840 350 000 ml @ 70 mls/hr IV . [id number] TOBIN with Sodium Bicarb (1 Meq/ml) 150 ml Rx#:[id number] Magnesium Sulfate-D5w Pmx 100 1 gm In Dextrose/Water 1 100ml.bag @ 100 mls/hr IVPB ONCE ONE Rx#: [id number] Intake, IV Titration 249.195 937.400 Amount Norepinephrine 8 mg In 249.195 147.400 Sodium Chloride 0.9% 250 ml @ 0.05 MCG/KG/MIN 4.52 mls/hr IV .Q24H [facility] Rx#: [id number] Sodium Chloride 0.9% 1, 240 000 ml @ 60 mls/hr IV . [id number] TOBIN Rx#:[id number] Sodium Chloride 0.9% 500 500 ml 500 ml @ 999 mls/hr IV .Q31M ONE Rx#:[id number] cefTRIAXone 1 gm In 50 Sodium Chloride 0.9% 50 ml @ 100 mls/hr IVPB Q24HR [facility] Rx#:[id number] Output: Urine 15 25 2 Straight 15 Other: Voiding Method Indwelling Catheter Indwelling Catheter Indwelling Catheter ABP, PAP, CO, CI - Last Documented Arterial Blood Pressure 123/41 - Exam GENERAL EXAM: Alert, frail-looking 79-year-old white female resting in bed, having intermittent episodes of dry heaves. HEENT: PERRLA, EOMI, no icterus, no neck masses, no JVD, no stridor. CHEST: No chest wall deformity. Symmetrical expansion. LUNGS: Equal air entry with no crackles, wheeze, rhonchi or dullness. CVS: Regular rate and rhythm, normal S1 and S2, no gallops, no murmurs, no rubs ABDOMEN: Soft, nontender. No hepatosplenomegaly, normal bowel sounds, no guard ing or rigidity. EXTREMITIES: No clubbing, no edema, no cyanosis, 2+ pulses and upper and lower extremities. MUSCULOSKELETAL: Muscle strength and tone normal. - Labs CBC & Chem 7: 09/04/20 04:31 09/04/20 04:31 Labs: Abnormal Lab Results - Last 24 Hours (Table) 09/02/20 09/03/20 09/03/20 Range/Units 16:14 05:16 05:16 WBC 22.6 H (3.8-10.6) k/uL RBC 2.70 L (3.80-5.40) m/uL Hgb 8.8 L (11.4-16.0) gm/dL Hct 28.3 L (34.0-46.0) % MCV 104.8 H (80.0-100.0) fL Neutrophils # 19.5 H (1.3-7.7) k/uL Lymphocytes # 0.7 L (1.0-4.8) k/uL Eosinophils # 0.9 H (0-0.7) k/uL Sodium 135 L (137-145) mmol/L Potassium 6.7 H* 5.5 H (3.5-5.1) mmol/L BUN 64 H (7-17) mg/dL Creatinine 6.28 H (0.52-1.04) mg/dL Glucose 113 H (74-99) mg/dL TIBC 195 L (228-460) ug/dL Microbiology - Last 24 Hours (Table) 09/02/20 09:03 Urine Culture - Final Urine,Voided Assessment and Plan Assessment: 1. Acute renal failure; possible ATN - Patient is admitted to ICU and is started on IV bicarbonate infusion; patient will have repeated doses of Kayexalate with repeat potassium level; vascular surgery is consulted for urgent placement of hemodialysis catheter and started hemodialysis; nephrology on board; continue with continuous EKG monitoring; monitor strict TERESE's, daily weights, renal function and electrolytes 2. Critical hyperkalemia/ hyponatremia; IV bicarbonate infusion; Kayexalate; monitor potassium levels closely; hemodialysis 3. MSSA bacteremia; consult ID 4. Acute UTI; patient started on IV Rocephin; urine culture and blood cultures are obtained 5. Chronic anemia; hemoglobin is stable at 7.8 this morning; we will monitor H&H closely and transfuse as hemoglobin is less than 7.0 6. Stage II coccygeal decubitus ulcer; wound care consult 7. Protein calorie malnutrition; consult dietary for nutrition recommendations DVT prophylaxis; SCDs/subcu heparin CODE STATUS; full code
--- NOTE | 2020-09-04 15:31 | P.PN ---
Subjective Progress Note Date: 09/04/20 Principal diagnosis: Acute kidney injury and hyperkalemia 79-year-old female with a past medical history significant for a recent urinary tract infection which caused her sepsis. Patient started antibiotics in the hospital after 9 days was released home with the midline access for more antibiotics. Patient also has been told she has kidney failure and so she has had increased swelling in her legs and decided to come the emergency department. Patient complains that she's feeling a little more short of breath. Patient denies any fever chills per patient denies chest pain or palpitations. Patient denies headache patient denies numbness weakness. Patient denies any abdominal pain but she's very nauseated hasn't been able to eat much.patient states recently she's also been anemic and had be transfused a unit of blood transferred. 09/03/20; Patient is seen and evaluated in ICU; started on hemodialysis for hyperkalemia and acute kidney injury. Her kidney injury was felt to be secondary to antibiotics, and possibly secondary to her sepsis and bacteremia for which she was treated at [facility]. Patient was eventually discharged on antibiotics at home, and she developed hyperkalemia with acute kidney injury. Patient was seen by vascular surgery and a dialysis catheter was placed; patient received dialysis yesterday, and her potassium is down to 5.5 today. Patient remains on Rocephin for presumptive urinary tract infection, she does have leukocytosis with WBC count of 22,000 today. Patient is currently on norepinephrine 09/04/2020 Patient remains in ICU; Patient is still complaining of intermittent episodes of dry heaves, minimal shortness of breath Labs are reviewed; chest x-ray is showing worsening of the left lower lobe with some component of pulmonary edema and suspect underlying pneumonia. Patient has been on Rocephin; intensive care team deferring to infectious disease for broadening spectrum of antibiotic therapy especially given changes on the chest x-ray. Patient is being dialyzed, and she is followed by nephrology. Labs today showed improvement in her WBC count down to 14.7 hemoglobin is 7.3. Electrolytes are normal renal profile showed a BUN of 40 creatinine of 4.52. Await recommendations from ID regarding change in antibiotic therapy Called patient's son Anders at [phone] for update on patient's condition; message left with cell phone number Objective - Vital Signs Vital signs: Vital Signs Temp 98.0 F 09/04/20 13:00 Pulse 93 09/04/20 15:00 Resp 16 09/04/20 15:00 BP 119/53 09/04/20 08:30 Pulse Ox 99 09/04/20 15:00 Intake & Output 09/03/20 09/04/20 09/04/20 18:59 06:59 18:59 Intake Total 5389.932 0698.560 608.214 Output Total 502 308 305 Balance 135.894 4226.560 303.214 Weight 61.6 kg 62.9 kg Intake: IV 350 660 120 Dextrose 5% in Water 1, 350 000 ml @ 70 mls/hr IV . [id number] TOBIN with Sodium Bicarb (1 Meq/ml) 150 ml Rx#:[id number] Sodium Chloride 0.9% 1, 660 120 000 ml @ 60 mls/hr IV . [id number] TOBIN Rx#:[id number] Intake, IV Titration 1134.396 560.560 238.214 Amount Dextrose 5% in Water 1, 250 000 ml @ 70 mls/hr IV . [id number] TOBIN with Sodium Bicarb (1 Meq/ml) 150 ml Rx#:[id number] Norepinephrine 8 mg In 164.396 250.560 13.214 Sodium Chloride 0.9% 250 ml @ 0.05 MCG/KG/MIN 4.52 mls/hr IV .Q24H TOBIN Rx#: [id number] Piperacillin-Tazobactam 3 75 .375 gm In Sodium Chloride 0.9% 100 ml @ 25 mls/hr IVPB Q8HR TO[facility] Rx# :[id number] Sodium Chloride 0.9% 1, 420 60 000 ml @ 60 mls/hr IV . [id number] TOBIN Rx#:[id number] Sodium Chloride 0.9% 500 100 ml 500 ml @ 20 mls/hr IV .Q24H TOBIN Rx#:[id number] Sodium Chloride 0.9% 500 500 ml 500 ml @ 999 mls/hr IV .Q31M ONE Rx#:[id number] cefTRIAXone 1 gm In 50 50 Sodium Chloride 0.9% 50 ml @ 100 mls/hr IVPB Q24HR [facility] Rx#:[id number] Oral 250 250 Output: Urine 2 8 5 Stool 300 300 Hemodialysis 500 Other: Voiding Method Indwelling Catheter Indwelling Catheter Indwelling Catheter ABP, PAP, CO, CI - Last Documented Arterial Blood Pressure 124/39 - Exam GENERAL EXAM: Alert, frail-looking 79-year-old white female resting in bed, having intermittent episodes of dry heaves. HEENT: PERRLA, EOMI, no icterus, no neck masses, no JVD, no stridor. CHEST: No chest wall deformity. Symmetrical expansion. LUNGS: Equal air entry with no crackles, wheeze, rhonchi or dullness. CVS: Regular rate and rhythm, normal S1 and S2, no gallops, no murmurs, no rubs ABDOMEN: Soft, nontender. No hepatosplenomegaly, normal bowel sounds, no guarding or rigidity. EXTREMITIES: No clubbing, no edema, no cyanosis, 2+ pulses and upper and lower extremities. MUSCULOSKELETAL: Muscle strength and tone normal. - Labs CBC & Chem 7: 09/04/20 04:31 09/04/20 04:31 Labs: Abnormal Lab Results - Last 24 Hours (Table) 09/04/20 09/04/20 Range/Units 04:31 04:31 WBC 14.7 H (3.8-10.6) k/uL RBC 2.16 L (3.80-5.40) m/uL Hgb 7.3 L D (11.4-16.0) gm/dL Hct 23.0 L (34.0-46.0) % MCV 106.6 H (80.0-100.0) fL Plt Count 116 L (150-450) k/uL Neutrophils # 11.4 H (1.3-7.7) k/uL Lymphocytes # 0.8 L (1.0-4.8) k/uL Eosinophils # 1.2 H (0-0.7) k/uL Sodium 135 L (137-145) mmol/L BUN 40 H (7-17) mg/dL Creatinine 4.52 H (0.52-1.04) mg/dL Glucose 108 H (74-99) mg/dL Calcium 7.3 L (8.4-10.2) mg/dL Microbiology - Last 24 Hours (Table) 09/02/20 16:31 Blood Culture - Preliminary Blood No Growth after 24 hours 09/02/20 16:14 Blood Culture - Preliminary Blood No Growth after 24 hours 09/02/20 09:03 Urine Culture - Final Urine,Voided Assessment and Plan Assessment: 1. Acute renal failure; possible ATN - Patient is admitted to ICU and is started on IV bicarbonate infusion; patient will have repeated doses of Kayexalate with repeat potassium level; vascular surgery is consulted for urgent placement of hemodialysis catheter and started hemodialysis; nephrology on board; continue with continuous EKG monitoring; monitor strict TERESE's, daily weights, renal function and electrolytes 2. Critical hyperkalemia/ hyponatremia; IV bicarbonate infusion; Kayexalate; monitor potassium levels closely; hemodialysis 3. MSSA bacteremia; consult ID 4. Acute UTI; patient started on IV Rocephin; urine culture and blood cultures are obtained 5. Chronic anemia; hemoglobin is stable at 7.8 this morning; we will monitor H&H closely and transfuse as hemoglobin is less than 7.0 6. Stage II coccygeal decubitus ulcer; wound care consult 7. Protein calorie malnutrition; consult dietary for nutrition recommendations DVT prophylaxis; SCDs/subcu heparin CODE STATUS; full code
--- NOTE | 2020-09-05 01:29 | PN ---
PROGRESS NOTE DATE OF SERVICE: 09/04/2020 REASON FOR FOLLOWUP: UTI and a question of pneumonia. INTERVAL HISTORY: The patient is currently afebrile. The patient is breathing comfortably. The patient denies having any chest pain. No shortness of breath or cough. Has been complaining of nausea. The patient is currently off the pressor support. No abdominal pain. Has been complaining of more pain in the lower back area. No diarrhea. PHYSICAL EXAMINATION: Blood pressure 107/36, pulse of 90, temperature 98. She is 97% on 2 L nasal cannula. General description is an elderly female lying in bed in no distress. RESPIRATORY SYSTEM: Unlabored breathing, decreased breath sounds at the bases. No wheeze. HEART: S1, S2. Regular rate and rhythm. ABDOMEN: Soft, no tenderness. LABS: Hemoglobin 7.1, white count 14.7, creatinine 4.52. Blood culture has been negative so far. Urine is negative. Chest x-ray with concern for increasing moderate left pleural effusion and adjacent consolidation. DIAGNOSTIC IMPRESSION AND PLAN: Patient admitted to the hospital with weakness. This patient did have evidence of acute renal failure, also with elevated white count. Initial concern for urinary tract infection, still had positive UA. Urine culture had been negative. Now with evidence of increasing effusion and consolidation at the lung bases, antibiotic has been adjusted to Zosyn. CT has been offered, the patient, however, refused and the patient did have nausea unable to take the contrast. Will obtain an MRI of the lumbar spine tomorrow in view of the severe back pain and recent history of MSSA bacteremia. Continue with supportive care. MMODL / IJN: [id number] /
[2020-09-05] MEDS ORDERED: propofoL 100 ML IV ONE (04:55)
[2020-09-05 06:53] LABS: Calcium 7.4 mg/dL (8.4-10.2); Potassium 4.5 mmol/L (3.5-5.1)
[2020-09-05 06:55] LABS: Basophils % (A) 0 %; Eosinophils # (A) 0.8 k/uL (0-0.7); Eosinophils % (A) 9 %; HCT 21.9 % (34.0-46.0); Hypochromasia Marked; Lymphocytes # (A) 0.6 k/uL (1.0-4.8); Lymphocytes % (A) 7 %; MCH 32.6 pg (25.0-35.0); MCHC 30.1 g/dL (31.0-37.0); MCV 108.2 fL (80.0-100.0); Macrocytosis Moderate; Mean Platelet Volume 8.5; Monocytes # (A) 0.4 k/uL (0-1.0); Monocytes % (A) 5 %; Neutrophils # (A) 7.4 k/uL (1.3-7.7); Neutrophils % (A) 78 %; Platelet Count 104 k/uL (150-450); RBC 2.02 m/uL (3.80-5.40); RDW 13.7 % (11.5-15.5); WBC 9.5 k/uL (3.8-10.6)
[2020-09-05 06:56] LABS: HGB 6.6 gm/dL (11.4-16.0)
--- NOTE | 2020-09-05 07:37 | XR ---
EXAMINATION TYPE: XR chest 1V portable DATE OF EXAM: 09/05/2020 Comparison: 09/04/2020 Clinical History: 79-year-old female assess fluid status Findings: Redemonstrated moderate size left pleural effusion with associated left mid and lower lung opacity. I nterstitial opacity may be slightly increased. On this semiupright exam, there is hazy density apprec iated at the right base. Left heart margin obscured by adjacent pleural parenchymal opacity. Impression: 1. Correlate for continued CHF with pulmonary vascular congestion. Interstitial density may be slight ly worsened. 2. Continued moderate left pleural effusion with adjacent atelectasis and/or consolidation. 3. Semiupright exam demonstrating some free-flowing small right pleural effusion.
[2020-09-05] MEDS: HEPARIN SODIUM,PORCINE 5,000 UNIT/ML 1 ML VIAL SQ SCH ×2 (08:06→21:12)
[2020-09-05] MEDS: PIPERACILLIN-TAZOBACTAM 3.375 GM in SODIUM CHLORIDE 0.9% 100 ML IVPB SCH ×2 (08:06→21:12)
[2020-09-05] MEDS: PANTOPRAZOLE 40 MG/10 ML VIAL IVP SCH (08:06)
--- NOTE | 2020-09-05 09:10 | P.PN ---
Subjective Patient is seen in follow-up for acute kidney injury, currently hemodialysis dependent. Urine output 15 mL overnight. Currently off Levophed. Hemoglobin 6.6 today. She'll be receiving a unit of blood with dialysis today. No active bleeding per the nurse. Vital signs are stable. General: The patient appeared well nourished and normally developed. HEENT: Head exam is unremarkable. Neck is without jugular venous distension. LUNGS: Breath sounds decreased. HEART: Rate and Rhythm are regular. ABDOMEN: Soft, nontender. EXTREMITITES: 2+ edema. Objective - Vital Signs Vital signs: Vital Signs Temp 97.6 F 09/05/20 08:00 Pulse 87 09/05/20 08:00 Resp 19 09/05/20 08:00 BP 119/53 09/04/20 08:30 Pulse Ox 99 09/05/20 08:00 Intake & Output 09/04/20 09/05/20 09/05/20 18:59 06:59 18:59 Intake Total 678.761 580.881 159 Output Total 555 300 15 Balance 123.761 280.881 144 Weight 62.6 kg Intake: IV 120 513 159 .09 60 10 A-Line flush 33 9 Piperacillin-Tazobactam 3 200 100 .375 gm In Sodium Chloride 0.9% 100 ml @ 25 mls/hr IVPB Q8HR [facility] Rx# :[id number] Sodium Chloride 0.9% 1, 120 000 ml @ 60 mls/hr IV . [id number] TOBIN Rx#:[id number] Sodium Chloride 0.9% 500 220 40 ml 500 ml @ 20 mls/hr IV .Q24H TOBIN Rx#:[id number] Intake, IV Titration 308.761 67.881 Amount Norepinephrine 8 mg In 23.761 47.881 Sodium Chloride 0.9% 250 ml @ 0.05 MCG/KG/MIN 4.52 mls/hr IV .Q24H TOBIN Rx#: [id number] Piperacillin-Tazobactam 3 75 .375 gm In Sodium Chloride 0.9% 100 ml @ 25 mls/hr IVPB Q8HR [facility] Rx# :[id number] Sodium Chloride 0.9% 500 160 20 ml 500 ml @ 20 mls/hr IV .Q24H TOBIN Rx#:[id number] cefTRIAXone 1 gm In 50 Sodium Chloride 0.9% 50 ml @ 100 mls/hr IVPB Q24HR [facility] Rx#:[id number] Oral 250 Output: Urine 55 15 Stool 500 300 Other: Voiding Method Indwelling Catheter Indwelling Catheter ABP, PAP, CO, CI - Last Documented Arterial Blood Pressure 147/55 - Labs CBC & Chem 7: 09/05/20 04:30 09/05/20 04:30 Labs: Abnormal Lab Results - Last 24 Hours (Table) 09/05/20 09/05/20 09/05/20 Range/Units 04:30 04:30 07:10 RBC 2.02 L (3.80-5.40) m/uL Hgb 6.6 L* (11.4-16.0) gm/dL Hct 21.9 L (34.0-46.0) % MCV 108.2 H (80.0-100.0) fL MCHC 30.1 L (31.0-37.0) g/dL Plt Count 104 L (150-450) k/uL Lymphocytes # 0.6 L (1.0-4.8) k/uL Eosinophils # 0.8 H (0-0.7) k/uL Sodium 131 L (137-145) mmol/L BUN 45 H (7-17) mg/dL Creatinine 5.18 H (0.52-1.04) mg/dL Calcium 7.4 L (8.4-10.2) mg/dL Crossmatch See Detail Microbiology - Last 24 Hours (Table) 09/02/20 16:31 Blood Culture - Preliminary Blood No Growth after 48 hours 09/02/20 16:14 Blood Culture - Preliminary Blood No Growth after 48 hours Assessment and Plan Plan: Assessment: 1. Acute kidney injury most likely due to ATN from sepsis and antibiotic. Currently hemodialysis dependent. Oliguric. Has a left groin catheter that was placed September 02. 2. Recent UTI and bacteremia. Cultures negative this admission. 3. Hyperkalemia secondary to acute kidney injury. Improved postdialysis. 4. Metabolic acidosis secondary to acute kidney injury and ostomy drainage. Status post bicarb drip. Resolved. 5. Anemia of chronic kidney disease. Iron replete. Hemoglobin 6.6 today. No active bleeding per nurse. 6. Volume overload. Plan: Hemodialysis today - will try for 2 L ultrafiltration if able to tolerate. Scheduled to receive 1 unit of blood with dialysis today. Add Aranesp. Off IV fluids. retail training manager to help facilitate outpatient hemodialysis.
[2020-09-05] MEDS ORDERED: HYDROcodone/APAP 7.5-325MG 1 EACH TAB PO PRN (09:43)
[2020-09-05] MEDS ORDERED: DARBEPOETIN ALFA 40 MCG/0.4 ML SYRINGE SQ SCH (10:00)
--- NOTE | 2020-09-05 10:57 | P.PN ---
Subjective Progress Note Date: 09/05/20 Principal diagnosis: Acute kidney injury and hyperkalemia 79-year-old white female patient of Dr. Bojorquez from the [facility] who had a recent hospitalization 3 weeks ago at the [facility] for acute urinary tract infection and sepsis. Patient was released home with the left upper midline access for antibiotic infusions. Yesterday patient went to see her PCP for routine blood work which revealed significantly abnormal renal function, and hypokalemia and patient was directed to come to the emergency department for evaluation and treatment. Patient is complaining of being more short of breath, she has developed pressure ulcer on her coccyx stage II, which is causing her discomfort, she also has a diffuse papular rash all over her body, arms, torso, legs, which is itchy. She denied any chest pain, denied any cough, phlegm production. She has a colostomy in place for previous history of colon resection for colon cancer, he denies any nausea vomiting or diarrhea. She denies any headaches. Apparently patient has not been able to eat much. She has recently been anemic and has required blood transfusion. Her daughters at the bedside and providing much of the history although she is not sure of the details, she is not sure of the name of the antibiotic the patient was discharged home on, or whether or not patient had any diarrhea at home. Patient's past medical history includes COPD, previous history of smoking, hyperlipidemia, chronic kidney disease, previous history of urinary tract infections, moderate protein calorie malnutrition, colon cancer in 2014, chronic back pain, scoliosis. She was discharged from the [facility] on 08/18/2020, her blood cultures were positive for MSSA, and echocardiogram revealed no vegetation. In the emergency department blood work showed BUN of 88, creatinine of 8.14, with potassium of 7.5 which was treated with insulin, 50% dextrose, calcium gluconate, nephrology has been consulted, troponin is negative, LFTs are within normal limits, urinalysis is significantly infected, urine culture has been sent, blood cultures have been sent, patient is anuric, she was given an amp of sodium bicarbonate, and she is on bicarbonate infusion at a rate of 70 ML per hour. Repeat blood work showed persistent hyperkalemia with potassium of 7.2, the plan is for another lab work, and nephrology is planning on vascular surgery consult for placement of temporary hemodialysis catheter and initiation of hemodialysis. Patient was reevaluated today on 09/03/20, patient was seen yesterday on consultation, and she was started on hemodialysis for hyperkalemia and acute kidney injury. Her kidney injury was felt to be secondary to antibiotics, and possibly secondary to her sepsis and bacteremia for which she was treated at [facility]. Patient was eventually discharged on antibiotics at home, and she developed hyperkalemia with acute kidney injury. I saw the patient yesterday, and I established central IV access, and a right radial arterial line was placed, she was also seen by vascular surgery and a dialysis catheter was placed patient received dialysis yesterday, and her potassium is down to 5.5 today. She is on Rocephin for presumptive urinary tract infection, she does have leukocytosis with WBC count of 22,000 today. Patient is requiring norepinephrine at 0.17 mcg/kg/m, and her mean arterial pressure is about 60 today. Patient is having episodes of dry heaves, but no vomiting. Patient was reevaluated today on 09/04/20, remains in the ICU, patient presented initially with hyperkalemia and acute kidney injury she was recently treated at [facility] for urinary tract infection and gram-negative bacteremia. Patient is now on hemodialysis, chest x-ray is showing worsening of the left lower lobe with some component of pulmonary edema and suspect underlying pneumonia. Patient has been on Rocephin, and she is being followed by infectious disease, may have to consider broadening the spectrum of her coverage, but patient had recent issues related to antibiotics and contributing to her acute kidney injury. Hence we'll let infectious disease decided on broadening the spectrum of antibiotics. In the meantime patient is being dialyzed, and she is followed by nephrology regarding her renal status. Patient is still complaining of intermittent episodes of dry heaves, minimal shortness of breath, no cough, no wheezing, no fever, no chills, no hemoptysis and no chest pain. Labs today showed improvement in her WBC count down to 14.7 hemoglobin is 7.3. Electrolytes are normal renal profile showed a BUN of 40 creatinine of 4.52. Findings on the chest x-ray are a bit concerning specially in the left lower lobe On 09/05/2020 patient seen in follow-up in the intensive care unit. Patient is awake and alert, oriented 3, is on 1 L of oxygen per nasal cannula, her pulse ox is 98%, hemodynamically patient is stable, she has been afebrile, she remains on antibiotics form of Zosyn, for recent history of urinary tract infection, blood and urine cultures from this admission have been negative, hemodynamically patient is stable, she is on point and was sitting at a rate of 20 ML per hour, no vasoactive drips. Today's hemoglobin is 6.6 with the no visible sign of bleeding, and patient will receive 1 unit of packed red blood cells, she is having hemodialysis today. Levothroid drip has been off since 4:00 this mo rning. She will receive her third hemodialysis treatment today. Nephrology is following. Today's labs have been reviewed, showing white blood cell count trending down, 9.5 on today's labs. Hemoglobin is 6.6 for which the patient is receiving a unit of blood, sodium is 131, the rest review a lites were within normal limits, BUN is 45 creatinine is 5.18. Tolerating oral intake, no nausea vomiting, her colostomy is producing liquid colored brown stool. Objective - Vital Signs Vital signs: Vital Signs Temp 97.4 F L 09/05/20 10:16 Pulse 107 H 09/05/20 10:16 Resp 18 09/05/20 10:16 BP 137/48 09/05/20 10:16 Pulse Ox 98 09/05/20 10:16 Intake & Output 09/04/20 09/05/20 09/05/20 18:59 06:59 18:59 Intake Total 678.761 580.881 521 Output Total 555 300 15 Balance 123.761 280.881 506 Weight 62.6 kg Intake: IV 120 513 211 .09 60 10 A-Line flush 33 21 Piperacillin-Tazobactam 3 200 100 .375 gm In Sodium Chloride 0.9% 100 ml @ 25 mls/hr IVPB Q8HR [facility] Rx# :[id number] Sodium Chloride 0.9% 1, 120 000 ml @ 60 mls/hr IV . [id number] [facility] Rx#:[id number] Sodium Chloride 0.9% 500 220 80 ml 500 ml @ 20 mls/hr IV .Q24H [facility] Rx#:[id number] Intake, IV Titration 308.761 67.881 Amount Norepinephrine 8 mg In 23.761 47.881 Sodium Chloride 0.9% 250 ml @ 0.05 MCG/KG/MIN 4.52 mls/hr IV .Q24H [facility] Rx#: [id number] Piperacillin-Tazobactam 3 75 .375 gm In Sodium Chloride 0.9% 100 ml @ 25 mls/hr IVPB Q8HR [facility] Rx# :[id number] Sodium Chloride 0.9% 500 160 20 ml 500 ml @ 20 mls/hr IV .Q24H [facility] Rx#:[id number] cefTRIAXone 1 gm In 50 Sodium Chloride 0.9% 50 ml @ 100 mls/hr IVPB Q24HR [facility] Rx#:[id number] Oral 250 Blood Product 310 Rc As-1 Unit 310 [id number] Output: Urine 55 15 Stool 500 300 Other: Voiding Method Indwelling Catheter Indwelling Catheter ABP, PAP, CO, CI - Last Documented Arterial Blood Pressure 131/47 - Exam GENERAL EXAM: Alert, very pleasant, frail-looking 79-year-old white female, on 1 L of oxygen, the pulse ox of 96-98%, resting in bed, complaining of mild itchiness, from the rash which has significantly improved over the weekend, hardly any redness left, comfortable in no apparent distress. HEAD: Normocephalic/atraumatic. EYES: Normal reaction of pupils, equal size. Conjunctiva pink, sclera white. NOSE: Clear with pink turbinates. THROAT: No erythema or exudates. NECK: No masses, no JVD, no thyroid enlargement, no adenopathy. CHEST: No chest wall deformity. Symmetrical expansion. LUNGS: Equal air entry with no crackles, wheeze, rhonchi or dullness. CVS: Regular rate and rhythm, normal S1 and S2, no gallops, no murmurs, no rubs ABDOMEN: Soft, nontender. No hepatosplenomegaly, normal bowel sounds, no guarding or rigidity. EXTREMITIES: No clubbing, 1+ lower extremity edema, no cyanosis, 2+ pulses and upper and lower extremities. Right arm swelling pitting, greater than the left arm MUSCULOSKELETAL: Muscle strength and tone normal. SPINE: No scoliosis or deformity SKIN: Generalized rash on the chest, trunk, back, arms and legs has significantly improved over the weekend, hardly any redness left, with just some isolated areas of macules, mild itchiness, which has also improved, and patient has stage II breakdown on her coccyx CENTRAL NERVOUS SYSTEM: Alert and oriented -3. No focal deficits, tone is normal in all 4 extremities. PSYCHIATRIC: Alert and oriented -3. Appropriate affect. Intact judgment and insight. - Labs CBC & Chem 7: 09/05/20 04:30 09/05/20 04:30 Labs: Abnormal Lab Results - Last 24 Hours (Table) 09/05/20 09/05/20 09/05/20 Range/Units 04:30 04:30 07:10 RBC 2.02 L (3.80-5.40) m/uL Hgb 6.6 L* (11.4-16.0) gm/dL Hct 21.9 L (34.0-46.0) % MCV 108.2 H (80.0-100.0) fL MCHC 30.1 L (31.0-37.0) g/dL Plt Count 104 L (150-450) k/uL Lymphocytes # 0.6 L (1.0-4.8) k/uL Eosinophils # 0.8 H (0-0.7) k/uL Sodium 131 L (137-145) mmol/L BUN 45 H (7-17) mg/dL Creatinine 5.18 H (0.52-1.04) mg/dL Calcium 7.4 L (8.4-10.2) mg/dL Crossmatch See Detail Microbiology - Last 24 Hours (Table) 09/02/20 16:31 Blood Culture - Preliminary Blood No Growth after 48 hours 09/02/20 16:14 Blood Culture - Preliminary Blood No Growth after 48 hours Assessment and Plan Plan: Assessment: #1. Acute kidney injury related to possibility of ATN and acute hyperkalemia with the serum potassium level of 7.5, requiring initiation of hemodialysis, and on 09/05/2020 patient is status post 3 treatments with hemodialysis #2. Recent hospitalization for urinary tract infection with sepsis, MSSA bacteremia at the [facility], discharged home on 08/18/2020 with a midline access and IV antibiotics. Echocardiogram completed at [facility] showed no evidence of vegetation #3. Chronic kidney disease, baseline unknown #4. Acute urinary tract infection, currently on Zosyn #5. Multiple electrolyte abnormalities, including hypokalemia, hyponatremia related to acute kidney injury, dehydration #6. History of colon cancer in 2014, status post colostomy #7. Nonobstructing renal stones in the upper and mid left kidney and right renal cyst #8. Right pleural effusion #9. Previous history of urinary tract infections #10. Recent history of anemia requiring blood transfusion #11. Stage II decubitus ulcer on coccyx present on admission #12. Scoliosis #13. History of chronic low back pain #14. Protein calorie malnutrition #15. History of COPD with previous history of smoking Plan: Continue current medical treatment, patient is finishing her third treatment with dialysis today, the chest x-ray has been reviewed showing bilateral pleural effusions, left greater than right, with some left basilar consolidation. We'll obtain ultrasound of the chest of the bilateral sides for possibility of thoracentesis. In any distress, she is only on 1 L of oxygen, and profile is improving, continues on antibiotics, ID service is following, microbiology data has been reviewed and has shown no growth from this admission. We'll continue to monitor the patient in intensive care unit I performed a history & physical examination of the patient and discussed their management with my nurse practitioner, Amara Zelaya. I reviewed the nurse practitioner's note and agree with the documented findings and plan of care. Lung sounds are positive for diminished breath sounds. The findings and the impression was discussed with the patient. I attest to the documentation by the nurse practitioner. Time with Patient: Less than 30
--- NOTE | 2020-09-05 13:52 | CDI ---
Documentation Clarification Form Date: 09/05/2020 01:07:08 PM From: Jayshree Elizabeth RN CCDS Admit Date: 09/02/2020 09:22:00 AM Patient Name: Keisha Mcfadden Visit Number: [id number] Discharge Date: ATTENTION: The Clinical Documentation Specialists (CDI) and [facility] Coding Staff appreciate your assistance in clarifying documentation. Please respond to the clarification below the line at the bottom and electronically sign. The CDI & [facility] Coding staff will review the response and follow-up if needed. Please note: Queries are made part of the Legal Health Record. If you have any questions, please contact the author of this message via ITS. Dr. Taveras Sheet Conflicting documentation has been found in the medical record: Internal Medicine Progress Note 09/04 Protein calorie malnutrition, consult dietary for nutrition recommendations. Respiratory Progress notes 09/03 & 09/04 Moderate severe protein calorie malnutrition Respiratory Progress note 09/05 Moderate protein calorie malnutrition History/Risk Factors: 79-year-old female presents to the ED for shortness of breath. Medical history recent UTI with sepsis hospitalized 9 days has line, COPD, HLD, Renal Disease and 2014 Colon cancer. Clinical Indicators: Stage 2 decubitus ulcer on her coccyx. Per H&P patient is extremely frail, with multiple bony prominences on her coccyx, patient has generalized popular macular rash all over her body, neck, arms truncal area back and legs. Labs Hgb 7.8, Na 128, K 7.2, Cr 8.14, Mag 1.3, Albumin 2.8, Dietary Consult 09/03: Decreased appetite, unsure weight loss, Poor nutrition intake. Weight 61.6 kg Height 5ft, 6-inch BMI 21.9, underweight, inadequate energy intake. Diagnosis poor appetite /intake, increased needs for wound healing/dialysis 0% consumed x 2 intakes, hemodialysis for DEMETRIUS decubitus ulcer to coccyx. Treatment: Dietary Nutrition Consult 09/03 see above; Ensure Supplement TID; Monitor PO intake. In your opinion, what is the most clinically appropriate diagnosis for this patient? Moderate Protein Calorie Malnutrition Severe Protein Calorie Malnutrition Other explanation of clinical findings Unable to determine (no explanation for clinical findings) (Last Revision: February 2018) Moderate Protein Calorie Malnutrition MTDD
[2020-09-05 14:14] LABS: Anisocytosis Slight; Basophils % (A) 0 %; Eosinophils # (A) 0.8 k/uL (0-0.7); Eosinophils % (A) 7 %; HCT 29.2 % (34.0-46.0); Hypochromasia Moderate; Lymphocytes # (A) 0.5 k/uL (1.0-4.8); Lymphocytes % (A) 5 %; MCH 32.4 pg (25.0-35.0); MCHC 32.2 g/dL (31.0-37.0); Macrocytosis Slight; Mean Platelet Volume 8.9; Monocytes # (A) 0.4 k/uL (0-1.0); Monocytes % (A) 4 %; Neutrophils # (A) 8.8 k/uL (1.3-7.7); Neutrophils % (A) 83 %; RDW 17.8 % (11.5-15.5); WBC 10.7 k/uL (3.8-10.6)
[2020-09-05 14:22] LABS: HGB 9.4 gm/dL (11.4-16.0)
[2020-09-05] MEDS: ONDANSETRON 4 MG/2 ML VIAL IVP PRN (14:22)
[2020-09-05 14:23] LABS: MCV 100.9 fL (80.0-100.0); Platelet Count 67 k/uL (150-450)
--- NOTE | 2020-09-05 15:41 | US ---
EXAMINATION TYPE: US chest DATE OF EXAM: 09/05/2020 COMPARISON: Radiograph same day CLINICAL HISTORY: 79-year-old female pleural effusions, referred for bilateral chest ultrasound with markings. TECHNIQUE: Targeted ultrasound of the posterior lower bilateral hemithoraces FINDINGS: EXAM MEASUREMENTS: Right Pleural Effusion pocket size: 4.75 cm Right skin surface to fluid distance: 2.7 cm Prominent lung noted in pocket at depth of 4.0 cm within the pocket of fluid. Left Pleural Effusion pocket size: 2.2 cm Left skin surface to fluid distance: 2.1 cm Right side marked for possible thoracentesis outside the dept. Left side not marked for possible thoracentesis outside the dept. Pulmonologists are able to review the images in the patient?s EMR. IMPRESSIONS: [id number] bilateral effusions. Atelectatic lung interposed within the pocket of fluid at the right base.
--- NOTE | 2020-09-05 19:54 | P.PN ---
Subjective 79-year-old female with a past medical history significant for a recent urinary tract infection which caused her sepsis some [facility]. Patient started antibiotics in the hospital after 9 days was released home with the midline access for more antibiotics. Patient also has been told she has kidney failure and so she has had increased swelling in her legs and decided to come the emergency department. Patient complains that she's feeling a little more short of breath. Patient denies any fever chills per patient denies chest pain or palpitations. Patient found to have acute kidney injury, needing hemodialysis. So she has sepsis and infectious disease on the case, currently she is on Zosyn. Colostomy is functioning from her previous surgery for colon cancer. She has bilateral pleural effusion, and pulmonary team considering thoracocentesis however chest ultrasound showing fluid pockets of 2-4 cm on either side. Labs showing mild leukocytosis with WBC 10.7 K, and anemia with 9.4 and low platelets are 60 7K. INR is not elevated. She is followed by several consult was obtained and pulmonary, infectious disease and nephrology services Objective - Vital Signs Vital signs: Vital Signs Temp 98.4 F 09/05/20 16:00 Pulse 96 09/05/20 19:00 Resp 19 09/05/20 19:00 BP 141/54 09/05/20 13:04 Pulse Ox 96 09/05/20 19:00 Intake & Output 09/05/20 09/05/20 09/06/20 06:59 18:59 06:59 Intake Total 713.457 5257 26 Output Total 300 2665 Balance 280.881 -1256 26 Weight 62.6 kg Intake: IV 513 399 26 .09 60 10 A-Line flush 33 69 6 Piperacillin-Tazobactam 3 200 100 .375 gm In Sodium Chloride 0.9% 100 ml @ 25 mls/hr IVPB Q8HR [facility] Rx# :[id number] Sodium Chloride 0.9% 500 220 220 20 ml 500 ml @ 20 mls/hr IV .Q24H [facility] Rx#:[id number] Intake, IV Titration 67.881 Amount Norepinephrine 8 mg In 47.881 Sodium Chloride 0.9% 250 ml @ 0.05 MCG/KG/MIN 4.52 mls/hr IV .Q24H [facility] Rx#: [id number] Sodium Chloride 0.9% 500 20 ml 500 ml @ 20 mls/hr IV .Q24H [facility] Rx#:[id number] Oral 700 Blood Product 310 Rc As-1 Unit 310 [id number] Output: Urine 15 Stool 300 150 Hemodialysis 2500 Other: Voiding Method Indwelling Catheter Indwelling Catheter ABP, PAP, CO, CI - Last Documented Arterial Blood Pressure 127/44 - Exam GENERAL: The patient is alert and oriented x2-3, not in any acute distress. HEENT: Pupils are round and equally reacting to light. EOMI. No scleral icterus. No conjunctival pallor. Normocephalic, atraumatic. No pharyngeal erythema. No thyromegaly. CARDIOVASCULAR: S1 and S2 present. No murmurs, rubs, or gallops. PULMONARY: Chest is clear to auscultation, no wheezing or crackles. ABDOMEN: Soft, nontender, nondistended, normoactive bowel sounds. No palpable organomegaly. MUSCULOSKELETAL: No joint swelling or deformity. EXTREMITIES: No cyanosis, clubbing, or pedal edema. NEUROLOGICAL: Gross neurological examination did not reveal any focal deficits. -SKIN: Mild trunk rashes. no petechiae. Stage II coccygeal pressure ulcer, - Labs CBC & Chem 7: 09/05/20 13:52 09/05/20 04:30 Labs: Abnormal Lab Results - Last 24 Hours (Table) 09/05/20 09/05/20 09/05/20 Range/Units 04:30 04:30 07:10 WBC (3.8-10.6) k/uL RBC 2.02 L (3.80-5.40) m/uL Hgb 6.6 L* (11.4-16.0) gm/dL Hct 21.9 L (34.0-46.0) % MCV 108.2 H (80.0-100.0) fL MCHC 30.1 L (31.0-37.0) g/dL RDW (11.5-15.5) % Plt Count 104 L (150-450) k/uL Neutrophils # (1.3-7.7) k/uL Lymphocytes # 0.6 L (1.0-4.8) k/uL Eosinophils # 0.8 H (0-0.7) k/uL Sodium 131 L (137-145) mmol/L BUN 45 H (7-17) mg/dL Creatinine 5.18 H (0.52-1.04) mg/dL Calcium 7.4 L (8.4-10.2) mg/dL Crossmatch See Detail 09/05/20 Range/Units 13:52 WBC 10.7 H (3.8-10.6) k/uL RBC 2.90 L (3.80-5.40) m/uL Hgb 9.4 L D (11.4-16.0) gm/dL Hct 29.2 L (34.0-46.0) % MCV 100.9 H D (80.0-100.0) fL MCHC (31.0-37.0) g/dL RDW 17.8 H (11.5-15.5) % Plt Count 67 L (150-450) k/uL Neutrophils # 8.8 H (1.3-7.7) k/uL Lymphocytes # 0.5 L (1.0-4.8) k/uL Eosinophils # 0.8 H (0-0.7) k/uL Sodium (137-145) mmol/L BUN (7-17) mg/dL Creatinine (0.52-1.04) mg/dL Calcium (8.4-10.2) mg/dL Crossmatch Microbiology - Last 24 Hours (Table) 09/02/20 16:31 Blood Culture - Preliminary Blood No Growth after 72 hours 09/02/20 16:14 Blood Culture - Preliminary Blood No Growth after 72 hours Assessment and Plan Assessment: Oliguric acute kidney injury, status post hemodialysis Sepsis secondary to the recent UTI Stage II coccygeal pressure ulcer History of colon cancer status post colostomy Bilateral pleural effusion Plan: This is a pleasant 79 years old female who presents with acute renal failure, continue with hemodialysis as per nephrology service. Antibiotics with infectious disease on the case. Also follow-up recommendation by pulmonary/critical care team Labs and medication were reviewed.. Continue same treatment. Continue with symptomatic treatment. Resume home medication. Monitor lytes and vitals. DVT and GI prophylaxis. Further recommendationsas per clinical course of the pa liam DVT prophylaxis: Subcutaneous heparin GI Prophylaxis: Ppi PT/OT: Pending Prognosis is guarded
--- NOTE | 2020-09-05 23:50 | PN ---
PROGRESS NOTE DATE OF SERVICE: 09/05/2020 REASON FOR FOLLOWUP: 1. Pneumonia. 2. UTI. INTERVAL HISTORY: The patient is currently afebrile. The patient is breathing comfortably. The patient denies having any chest pain, shortness of breath or cough. No abdominal pain. No diarrhea. The patient back pain slightly improved and she refused MRI this morning. PHYSICAL EXAMINATION: Blood pressure 121/48 with a pulse of 91, temperature 98. She is 99% on 1 L nasal cannula. General description is an elderly female lying in bed in no distress. RESPIRATORY SYSTEM: Unlabored breathing, decreased breath sounds at the bases. No wheeze. HEART: S1, S2. Regular rate and rhythm. ABDOMEN: Soft, no tenderness. LABS: Hemoglobin 9.4, white count 10.7, creatinine is 5.18. Blood culture has been negative. Urine is negative. DIAGNOSTIC IMPRESSION AND PLAN: Patient with elevated white count multifactorial with concern for possible pneumonia question aspiration. Patient is covered with Zosyn to continue. White count has improved. To continue to monitor clinical course closely. MMODL / IJN: [id number] /
[2020-09-06 06:18] LABS: Anisocytosis Slight; Basophils # (A) 0.1 k/uL (0-0.2); Basophils % (A) 1 %; Eosinophils # (A) 0.9 k/uL (0-0.7); Eosinophils % (A) 9 %; HCT 26.9 % (34.0-46.0); HGB 8.5 gm/dL (11.4-16.0); Hypochromasia Moderate; Lymphocytes # (A) 0.6 k/uL (1.0-4.8); Lymphocytes % (A) 7 %; MCH 32.3 pg (25.0-35.0); MCHC 31.8 g/dL (31.0-37.0); MCV 101.4 fL (80.0-100.0); Macrocytosis Moderate; Mean Platelet Volume 9.2; Monocytes # (A) 0.5 k/uL (0-1.0); Monocytes % (A) 6 %; Neutrophils # (A) 7.2 k/uL (1.3-7.7); Neutrophils % (A) 76 %; RBC 2.65 m/uL (3.80-5.40); RDW 17.7 % (11.5-15.5); WBC 9.5 k/uL (3.8-10.6)
[2020-09-06 06:27] LABS: Calcium 7.4 mg/dL (8.4-10.2); Potassium 4.3 mmol/L (3.5-5.1)
[2020-09-06 06:31] LABS: Platelet Count 74 k/uL (150-450)
--- NOTE | 2020-09-06 07:39 | XR ---
EXAMINATION TYPE: XR chest 1V portable DATE OF EXAM: 09/06/2020 Comparison: 09/05/2020 Clinical History: 79-year-old female assess fluid status Findings: Ldzqy-yk-vlpcftar effusions persist on the left greater than right. Background COPD and interstitial prominence. No significant change. Impression: Small to moderate effusions with adjacent atelectasis and/or consolidation persist particularly on th e left. Background COPD.
--- NOTE | 2020-09-06 09:36 | P.PN ---
Subjective Progress Note Date: 09/06/20 Principal diagnosis: Acute kidney injury and hyperkalemia 79-year-old white female patient of Dr. Bojorquez from the [facility] who had a recent hospitalization 3 weeks ago at the [facility] for acute urinary tract infection and sepsis. Patient was released home with the left upper midline access for antibiotic infusions. Yesterday patient went to see her PCP for routine blood work which revealed significantly abnormal renal function, and hypokalemia and patient was directed to come to the emergency department for evaluation and treatment. Patient is complaining of being more short of breath, she has developed pressure ulcer on her coccyx stage II, which is causing her discomfort, she also has a diffuse papular rash all over her body, arms, torso, legs, which is itchy. She denied any chest pain, denied any cough, phlegm production. She has a colostomy in place for previous history of colon resection for colon cancer, he denies any nausea vomiting or diarrhea. She denies any headaches. Apparently patient has not been able to eat much. She has recently been anemic and has required blood transfusion. Her daughters at the bedside and providing much of the history although she is not sure of the details, she is not sure of the name of the antibiotic the patient was discharged home on, or whether or not patient had any diarrhea at home. Patient's past medical history includes COPD, previous history of smoking, hyperlipidemia, chronic kidney disease, previous history of urinary tract infections, moderate protein calorie malnutrition, colon cancer in 2014, chronic back pain, scoliosis. She was discharged from the [facility] on 08/18/2020, her blood cultures were positive for MSSA, and echocardiogram revealed no vegetation. In the emergency department blood work showed BUN of 88, creatinine of 8.14, with potassium of 7.5 which was treated with insulin, 50% dextrose, calcium gluconate, nephrology has been consulted, troponin is negative, LFTs are within normal limits, urinalysis is significantly infected, urine culture has been sent, blood cultures have been sent, patient is anuric, she was given an amp of sodium bicarbonate, and she is on bicarbonate infusion at a rate of 70 ML per hour. Repeat blood work showed persistent hyperkalemia with potassium of 7.2, the plan is for another lab work, and nephrology is planning on vascular surgery consult for placement of temporary hemodialysis catheter and initiation of hemodialysis. Patient was reevaluated today on 09/03/20, patient was seen yesterday on consultation, and she was started on hemodialysis for hyperkalemia and acute kidney injury. Her kidney injury was felt to be secondary to antibiotics, and possibly secondary to her sepsis and bacteremia for which she was treated at [facility]. Patient was eventually discharged on antibiotics at home, and she developed hyperkalemia with acute kidney injury. I saw the patient yesterday, and I established central IV access, and a right radial arterial line was placed, she was also seen by vascular surgery and a dialysis catheter was placed patient received dialysis yesterday, and her potassium is down to 5.5 today. She is on Rocephin for presumptive urinary tract infection, she does have leukocytosis with WBC count of 22,000 today. Patient is requiring norepinephrine at 0.17 mcg/kg/m, and her mean arterial pressure is about 60 today. Patient is having episodes of dry heaves, but no vomiting. Patient was reevaluated today on 09/04/20, remains in the ICU, patient presented initially with hyperkalemia and acute kidney injury she was recently treated at [facility] for urinary tract infection and gram-negative bacteremia. Patient is now on hemodialysis, chest x-ray is showing worsening of the left lower lobe with some component of pulmonary edema and suspect underlying pneumonia. Patient has been on Rocephin, and she is being followed by infectious disease, may have to consider broadening the spectrum of her coverage, but patient had recent issues related to antibiotics and contributing to her acute kidney injury. Hence we'll let infectious disease decided on broadening the spectrum of antibiotics. In the meantime patient is being dialyzed, and she is followed by nephrology regarding her renal status. Patient is still complaining of intermittent episodes of dry heaves, minimal shortness of breath, no cough, no wheezing, no fever, no chills, no hemoptysis and no chest pain. Labs today showed improvement in her WBC count down to 14.7 hemoglobin is 7.3. Electrolytes are normal renal profile showed a BUN of 40 creatinine of 4.52. Findings on the chest x-ray are a bit concerning specially in the left lower lobe On 09/05/2020 patient seen in follow-up in the intensive care unit. Patient is awake and alert, oriented 3, is on 1 L of oxygen per nasal cannula, her pulse ox is 98%, hemodynamically patient is stable, she has been afebrile, she remains on antibiotics form of Zosyn, for recent history of urinary tract infection, blood and urine cultures from this admission have been negative, hemodynamically patient is stable, she is on point and was sitting at a rate of 20 ML per hour, no vasoactive drips. Today's hemoglobin is 6.6 with the no visible sign of bleeding, and patient will receive 1 unit of packed red blood cells, she is having hemodialysis today. Levothroid drip has been off since 4:00 this mo rning. She will receive her third hemodialysis treatment today. Nephrology is following. Today's labs have been reviewed, showing white blood cell count trending down, 9.5 on today's labs. Hemoglobin is 6.6 for which the patient is receiving a unit of blood, sodium is 131, the rest review a lites were within normal limits, BUN is 45 creatinine is 5.18. Tolerating oral intake, no nausea vomiting, her colostomy is producing liquid colored brown stool. On 09/06/2020 patient seen in follow-up in the intensive care unit, her levo fed has been weaned off since 3:30 this morning, she remains on 0.9 normal saline at rate of 30 ML per hour. Denies any difficulty breathing, she is currently on room air, with a pulse ox of 99%, blood pressure stable, patient is in sinus mechanism with a rate of 91 BPM. Yesterday she had a hemodialysis treatment would removal of 2.5 L still has significant edema involving her bilateral lower extremities, and edema involving right arm greater than left arm, sounds reveal some basilar crackles, no significant wheezing, or rhonchi, no cough. Abdomen is soft, no nausea or vomiting, patient is tolerating oral intake, no significant diarrhea out of the colostomy. She remains on antibiotics, in the form of Zosyn, and all of her cultures including urine culture and blood cultures remain negative during this admission. ID service is following, patient has been afebrile, no altered mentation. Objective - Vital Signs Vital signs: Vital Signs Temp 97.7 F 09/06/20 08:00 Pulse 92 09/06/20 09:00 Resp 12 09/06/20 09:00 BP 141/54 09/05/20 13:04 Pulse Ox 99 09/06/20 09:00 Intake & Output 09/05/20 09/06/20 09/06/20 18:59 06:59 18:59 Intake Total 1409 471.912 66 Output Total 2665 42 3 Balance -1256 429.912 63 Weight 64.3 kg Intake: IV 399 459 66 .09 10 80 20 A-Line flush 69 39 6 Piperacillin-Tazobactam 3 100 100 .375 gm In Sodium Chloride 0.9% 100 ml @ 25 mls/hr IVPB Q8HR TOBIN Rx# :[id number] Sodium Chloride 0.9% 500 220 240 40 ml 500 ml @ 20 mls/hr IV .Q24H TOBIN Rx#:[id number] Intake, IV Titration 12.912 Amount Norepinephrine 8 mg In 12.912 Sodium Chloride 0.9% 250 ml @ 0.05 MCG/KG/MIN 4.52 mls/hr IV .Q24H TOBIN Rx#: [id number] Oral 700 Blood Product 310 Rc As-1 Unit 310 [id number] Output: Urine 15 17 3 Stool 150 25 Hemodialysis 2500 Other: Voiding Method Indwelling Catheter Indwelling Catheter Indwelling Catheter ABP, PAP, CO, CI - Last Documented Arterial Blood Pressure 160/59 - Exam GENERAL EXAM: Alert, very pleasant, frail-looking 79-year-old white female, on 1 L of oxygen, the pulse ox of 96-98%, resting in bed, complaining of mild itchiness, from the rash which has significantly improved over the weekend, hardly any redness left, comfortable in no apparent distress. HEAD: Normocephalic/atraumatic. EYES: Normal reaction of pupils, equal size. Conjunctiva pink, sclera white. NOSE: Clear with pink turbinates. THROAT: No erythema or exudates. NECK: No masses, no JVD, no thyroid enlargement, no adenopathy. CHEST: No chest wall deformity. Symmetrical expansion. LUNGS: Equal air entry with no crackles, wheeze, rhonchi or dullness. CVS: Regular rate and rhythm, normal S1 and S2, no gallops, no murmurs, no rubs ABDOMEN: Soft, nontender. No hepatosplenomegaly, normal bowel sounds, no guarding or rigidity. EXTREMITIES: No clubbing, 1+ lower extremity edema, no cyanosis, 2+ pulses and upper and lower extremities. Right arm swelling pitting, greater than the left arm MUSCULOSKELETAL: Muscle strength and tone normal. SPINE: No scoliosis or deformity SKIN: Generalized rash on the chest, trunk, back, arms and legs has significantly improved over the weekend, hardly any redness left, with just some isolated areas of macules, mild itchiness, which has also improved, and patient has stage II breakdown on her coccyx CENTRAL NERVOUS SYSTEM: Alert and oriented -3. No focal deficits, tone is normal in all 4 extremities. PSYCHIATRIC: Alert and oriented -3. Appropriate affect. Intact judgment and insight. - Labs CBC & Chem 7: 09/06/20 04:50 09/06/20 04:50 Labs: Abnormal Lab Results - Last 24 Hours (Table) 09/05/20 09/05/20 09/06/20 Range/Units 07:10 13:52 04:50 WBC 10.7 H (3.8-10.6) k/uL RBC 2.90 L 2.65 L (3.80-5.40) m/uL Hgb 9.4 L D 8.5 L (11.4-16.0) gm/dL Hct 29.2 L 26.9 L (34.0-46.0) % MCV 100.9 H D 101.4 H (80.0-100.0) fL RDW 17.8 H 17.7 H (11.5-15.5) % Plt Count 67 L 74 L (150-450) k/uL Neutrophils # 8.8 H (1.3-7.7) k/uL Lymphocytes # 0.5 L 0.6 L (1.0-4.8) k/uL Eosinophils # 0.8 H 0.9 H (0-0.7) k/uL Sodium (137-145) mmol/L Chloride (98-107) mmol/L BUN (7-17) mg/dL Creatinine (0.52-1.04) mg/dL Calcium (8.4-10.2) mg/dL Crossmatch See Detail 09/06/20 Range/Units 04:50 WBC (3.8-10.6) k/uL RBC (3.80-5.40) m/uL Hgb (11.4-16.0) gm/dL Hct (34.0-46.0) % MCV (80.0-100.0) fL RDW (11.5-15.5) % Plt Count (150-450) k/uL Neutrophils # (1.3-7.7) k/uL Lymphocytes # (1.0-4.8) k/uL Eosinophils # (0-0.7) k/uL Sodium 135 L (137-145) mmol/L Chloride 108 H (98-107) mmol/L BUN 27 H (7-17) mg/dL Creatinine 3.87 H (0.52-1.04) mg/dL Calcium 7.4 L (8.4-10.2) mg/dL Crossmatch Microbiology - Last 24 Hours (Table) 09/02/20 16:31 Blood Culture - Preliminary Blood No Growth after 72 hours 09/02/20 16:14 Blood Culture - Preliminary Blood No Growth after 72 hours Assessment and Plan Plan: Assessment: #1. Acute kidney injury related to possibility of ATN and acute hyperkalemia with the serum potassium level of 7.5, requiring initiation of hemodialysis, and on 09/05/2020 patient is status post 3 treatments with hemodialysis #2. Recent hospitalization for urinary tract infection with sepsis, MSSA bacteremia at the [facility], discharged home on 08/18/2020 with a midline access and IV antibiotics. Echocardiogram completed at [facility] showed no evidence of vegetation #3. Chronic kidney disease, baseline unknown #4. Acute urinary tract infection, currently on Zosyn #5. Multiple electrolyte abnormalities, including hypokalemia, hyponatremia related to acute kidney injury, dehydration #6. History of colon cancer in 2013, status post colostomy #7. Nonobstructing renal stones in the upper and mid left kidney and right renal cyst #8. Right pleural effusion #9. Previous history of urinary tract infections #10. Recent history of anemia requiring blood transfusion #11. Stage II decubitus ulcer on coccyx present on admission #12. Scoliosis #13. History of chronic low back pain #14. Protein calorie malnutrition #15. History of COPD with previous history of smoking Plan: Continue current medical treatment, patient is off vasopressors, hemodynamically has been stable, in sinus mechanism, no worsening dyspnea, no altered mentation, no fever or chills. Antibiotics per ID service recommendations. No acute events overnight. Today's labs have been reviewed. Patient is stable to transfer out of intensive care unit to general medical surgical floor. I performed a history & physical examination of the patient and discussed their management with my nurse practitioner, Amara Zelaya. I reviewed the nurse practitioner's note and agree with the documented findings and plan of care. Lung sounds are positive for diminished breath sounds. The findings and the impression was discussed with the patient. I attest to the documentation by the nurse practitioner. Time with Patient: Less than 30
--- NOTE | 2020-09-06 09:43 | P.PN ---
Subjective Patient is seen in follow-up for acute kidney injury, currently hemodialysis dependent. Remains anuric. Currently off Levophed. Hemoglobin improved post blood transfusion September 05. Tolerated dialysis well yesterday with 2.5 L ultrafiltration. Vital signs are stable. General: The patient appeared well nourished and normally developed. HEENT: Head exam is unremarkable. Neck is without jugular venous distension. LUNGS: Breath sounds decreased. HEART: Rate and Rhythm are regular. ABDOMEN: Soft, nontender. EXTREMITITES: 2+ edema. Objective - Vital Signs Vital signs: Vital Signs Temp 97.7 F 09/06/20 08:00 Pulse 92 09/06/20 09:00 Resp 12 09/06/20 09:00 BP 141/54 09/05/20 13:04 Pulse Ox 99 09/06/20 09:00 Intake & Output 09/05/20 09/06/20 09/06/20 18:59 06:59 18:59 Intake Total 1409 471.912 399 Output Total 2665 42 3 Balance -1256 429.912 396 Weight 64.3 kg Intake: IV 399 459 99 .09 10 80 30 A-Line flush 69 39 9 Piperacillin-Tazobactam 3 100 100 .375 gm In Sodium Chloride 0.9% 100 ml @ 25 mls/hr IVPB Q8HR TOBIN Rx# :[id number] Sodium Chloride 0.9% 500 220 240 60 ml 500 ml @ 20 mls/hr IV .Q24H TOBIN Rx#:[id number] Intake, IV Titration 12.912 Amount Norepinephrine 8 mg In 12.912 Sodium Chloride 0.9% 250 ml @ 0.05 MCG/KG/MIN 4.52 mls/hr IV .Q24H TOBIN Rx#: [id number] Oral 700 300 Blood Product 310 Rc As-1 Unit 310 [id number] Output: Urine 15 17 3 Stool 150 25 Hemodialysis 2500 Other: Voiding Method Indwelling Catheter Indwelling Catheter Indwelling Catheter ABP, PAP, CO, CI - Last Documented Arterial Blood Pressure 160/59 - Labs CBC & Chem 7: 09/06/20 04:50 09/06/20 04:50 Labs: Abnormal Lab Results - Last 24 Hours (Table) 09/05/20 09/05/20 09/06/20 Range/Units 07:10 13:52 04:50 WBC 10.7 H (3.8-10.6) k/uL RBC 2.90 L 2.65 L (3.80-5.40) m/uL Hgb 9.4 L D 8.5 L (11.4-16.0) gm/dL Hct 29.2 L 26.9 L (34.0-46.0) % MCV 100.9 H D 101.4 H (80.0-100.0) fL RDW 17.8 H 17.7 H (11.5-15.5) % Plt Count 67 L 74 L (150-450) k/uL Neutrophils # 8.8 H (1.3-7.7) k/uL Lymphocytes # 0.5 L 0.6 L (1.0-4.8) k/uL Eosinophils # 0.8 H 0.9 H (0-0.7) k/uL Sodium (137-145) mmol/L Chloride (98-107) mmol/L BUN (7-17) mg/dL Creatinine (0.52-1.04) mg/dL Calcium (8.4-10.2) mg/dL Crossmatch See Detail 09/06/20 Range/Units 04:50 WBC (3.8-10.6) k/uL RBC (3.80-5.40) m/uL Hgb (11.4-16.0) gm/dL Hct (34.0-46.0) % MCV (80.0-100.0) fL RDW (11.5-15.5) % Plt Count (150-450) k/uL Neutrophils # (1.3-7.7) k/uL Lymphocytes # (1.0-4.8) k/uL Eosinophils # (0-0.7) k/uL Sodium 135 L (137-145) mmol/L Chloride 108 H (98-107) mmol/L BUN 27 H (7-17) mg/dL Creatinine 3.87 H (0.52-1.04) mg/dL Calcium 7.4 L (8.4-10.2) mg/dL Crossmatch Microbiology - Last 24 Hours (Table) 09/02/20 16:31 Blood Culture - Preliminary Blood No Growth after 72 hours 09/02/20 16:14 Blood Culture - Preliminary Blood No Growth after 72 hours Assessment and Plan Plan: Assessment: 1. Acute kidney injury most likely due to ATN from sepsis and antibiotic. Rule out GN. Currently hemodialysis dependent. Oliguric. Has a left groin catheter that was placed September 02. 2. Recent UTI and bacteremia. Cultures negative this admission. 3. Hyperkalemia secondary to acute kidney injury. Improved postdialysis. 4. Metabolic acidosis secondary to acute kidney injury and ostomy drainage. Status post bicarb drip. Resolved. 5. Anemia of chronic kidney disease. Iron replete. Maintained on Aranesp. Status post blood transfusion September 05. 6. Volume overload. Improving with UF. Plan: Hemodialysis tomorrow. She will be maintained on Saturday schedule. Add Lasix 80 mg orally twice daily. technology services manager to help facilitate outpatient hemodialysis. Continue to monitor for renal recovery. Reconsult vascular surgery for permacath placement and removal of groin catheter. Phosphorus normal.
[2020-09-06] MEDS: PANTOPRAZOLE 40 MG TABLET PO SCH (10:30)
[2020-09-06] MEDS: HEPARIN SODIUM,PORCINE 5,000 UNIT/ML 1 ML VIAL SQ SCH ×3 (10:30→21:00)
[2020-09-06] MEDS: PIPERACILLIN-TAZOBACTAM 3.375 GM in SODIUM CHLORIDE 0.9% 100 ML IVPB SCH ×2 (10:30→20:09)
--- NOTE | 2020-09-06 10:30 | US ---
EXAMINATION TYPE: US venous doppler duplex UE RT DATE OF EXAM: 09/06/2020 COMPARISON: NONE CLINICAL HISTORY: 79-year-old female RUE swelling. Rt hand pain and swelling TECHNIQUE: Grayscale, color doppler, spectral doppler imaging performed of the deep veins of the uppe r extremities. SIDE PERFORMED: Right FINDINGS: There is normal flow, compressibility and vascular waveforms within the deep veins of the right upper extremity. Right Arm: Negative for DVT Activities Volunteer notes: Rt cephalic vein not positively identified due to edema. Rt ulnar veins not visual ized due to edema and bandaging over IV site. IMPRESSION: 1. There is soft tissue edema. The right cephalic vein and ulnar veins could not be assessed due to t he swelling and due to the IV site dressing. 2. Otherwise, no evidence for DVT within the right upper extremity.
[2020-09-06] MEDS: SODIUM CHLORIDE 0.9% 500 ML 500 ML IV SCH (10:31)
[2020-09-06 13:17] LABS: Complement C3 58.9 mg/dL (80.0-207.0)
[2020-09-06] MEDS ORDERED: IV FLUID CONTINUATION 350 ML IV ONE (14:35)
[2020-09-06] MEDS ORDERED: fentaNYL (PF) 50 MCG/ML 2 ML AMP IV ONE (14:35)
[2020-09-06] MEDS: LIDOCAINE 1% INJ 10MG/ML (20 ML MDV) SQ ONE ×2 (14:38→14:46)
[2020-09-06 16:45] LABS: DNA Double-Stranded NEGATIVE (NEGATIVE)
[2020-09-06] MEDS: FUROSEMIDE 80 MG TAB PO SCH (17:04)
--- NOTE | 2020-09-06 17:44 | IR ---
EXAMINATION TYPE: IR cvc insert central tunneled DATE OF EXAM: 09/06/2020 COMPARISON: NONE HISTORY: Hemodialysis tunneled catheter placement TECHNIQUE: Fluoroscopy. FINDINGS: Fluoroscopic guidance was provided during procedure for performing physician. A total of 2.3 minutes of fluoroscopic time was utilized during the procedure and 91 images was acquired. IMPRESSION: As Above.
--- NOTE | 2020-09-06 18:38 | XR ---
EXAMINATION TYPE: XR chest 1V portable DATE OF EXAM: 09/06/2020 COMPARISON: Same-day radiograph at 0541 hours. HISTORY: Status post central venous catheter. TECHNIQUE: Single frontal view of the chest is obtained. FINDINGS: There is interval placement of right IJ dialysis catheter with tip overlying the caudal SVC . There is persistent [id number] left pleural effusion with accompanying opacity. No pneumotho rax. The cardiac silhouette size is within normal limits. The osseous structures are intact. IMPRESSION: As above.
--- NOTE | 2020-09-06 20:18 | OP ---
OPERATIVE REPORT PREOPERATIVE DIAGNOSIS: Acute on chronic renal failure. POSTOPERATIVE DIAGNOSIS: Acute on chronic renal failure. PROCEDURE: 1. Ultrasound-guided 21 cm dialysis catheter placement, right jugular approach. 2. Removal of the dialysis catheter, right femoral approach. SEDATION TIME: 25 minutes. PROCEDURE DESCRIPTION: This patient was brought to the catheterization laboratory technician. Right side of the chest and neck was prepped and draped in usual sterile manner. Ultrasound-guided micropuncture was introduced into the right jugular vein and micropuncture guidewire was passed. Then a 4-Maltese dilator was advanced on top of the guidewire. Then we passed a regular guidewire, which was parked in the inferior vena cava under fluoroscopic control. After that a tunnel was created. Through the tunnel we brought a 23 cm dialysis catheter in the neck incision area. Dilator was advanced and sheath was advanced on top of the guidewire. Through the sheath we introduced the dialysis catheter. Tip of the catheter was in the superior venocaval arterial junction. It was flushed with heparin saline and hep-locked, secured with 3-0 Vicryl. Dressing was applied. Patient tolerated the procedure well. Then the right groin was prepped and right femoral catheter was removed. Pressure was held. Patient tolerated the procedure well. MMODL / IJN: [id number] /
--- NOTE | 2020-09-06 21:23 | P.PN ---
Subjective 79-year-old female with a past medical history significant for a recent urinary tract infection which caused her sepsis some [facility]. Patient started antibiotics in the hospital after 9 days was released home with the midline access for more antibiotics. Patient also has been told she has kidney failure and so she has had increased swelling in her legs and decided to come the emergency department. Patient complains that she's feeling a little more short of breath. Patient denies any fever chills per patient denies chest pain or palpitations. Patient found to have acute kidney injury, needing hemodialysis. So she has sepsis and infectious disease on the case, currently she is on Zosyn. Colostomy is functioning from her previous surgery for colon cancer. She has bilateral pleural effusion, and pulmonary team considering thoracocentesis however chest ultrasound showing fluid pockets of 2-4 cm on either side. Labs showing mild leukocytosis with WBC 10.7 K, and anemia with 9.4 and low platelets are 60 7K. INR is not elevated. She is followed by several consult was obtained and pulmonary, infectious disease and nephrology services 09/06/2020 Patient is fully awake and oriented in the ICU. She needed short period of pressors last night however her blood pressure is more stable now on pressors. She complains only from her low back sore from her pressure ulcer, pain with movement only Patient is currently on clear liquid diet and we will advance him to follow liquid diet Patient underwent dialysis catheter placement today Patient can contact the general medical floor per ICU team CONSTITUTIONAL: No fever, no malaise, no fatigue. HEENT: No recent visual problems or hearing problems. Denied any sore throat. CARDIOVASCULAR: No orthopnea, PND, no palpitations, no syncope. PULMONARY: No shortness of breath, no cough, no hemoptysis. GASTROINTESTINAL: No diarrhea, no nausea, no vomiting, no abdominal pain. No rmoactive bowel sounds. NEUROLOGICAL: No headaches, no weakness, no numbness. Active Medications Generic Name Dose Route Start Last Admin Trade Name Freq PRN Reason Stop Dose Admin Hydrocodone Bitart/Acetaminophen 1 each 09/05/20 09:43 09/05/20 14:20 Hydrocodone/Apap 7.5-325mg 1 Each Tab PO 1 each Q6H PRN Administration Pain Calamine 1 applic 09/02/20 16:45 09/04/20 07:02 Calamine/Zinc Oxide Lotion 177 Ml Btl TOPICAL 1 applic BID PRN Administration Skin Irritation Darbepoetin Darrion 40 mcg 09/05/20 10:00 09/05/20 13:51 Darbepoetin Darrion 40 Mcg/0.4 Ml Syringe SQ 40 mcg Q7D TOBIN Administration Furosemide 80 mg 09/06/20 16:00 09/06/20 17:04 Furosemide 80 Mg Tab PO 80 mg BID@0900,1600 TOBIN Administration Heparin Sodium (Porcine) 5,000 unit 09/02/20 21:00 09/06/20 20:08 Heparin Sodium,Porcine 5,000 Unit/Ml 1 Ml Vial SQ 5,000 unit Q12HR TOBIN Administration Hydrocortisone 1 applic 09/02/20 15:00 09/04/20 19:59 Hydrocortisone 1% Cream 30 Gm Tube TOPICAL 1 applic QID PRN Administration Skin Irritation Hydromorphone HCl 1 mg 09/02/20 14:30 09/03/20 16:06 Hydromorphone 1 Mg/Ml 1 Ml Syringe IVP 1 mg Q4HR PRN Administration Pain Sodium Chloride 500 mls @ 20 mls/hr 09/04/20 10:00 09/06/20 10:31 Saline 0.9% IV 20 mls/hr .Q24H TOBIN Administration Piperacillin Sod/Tazobactam 100 mls @ 25 mls/hr 09/05/20 21:00 09/06/20 20:09 Sod 3.375 gm/ Sodium Chloride IVPB 25 mls/hr Q12HR TOBIN Administration Naloxone HCl 0.2 mg 09/02/20 16:48 Naloxone 0.4 Mg/Ml 1 Ml Vial IV Q2M PRN Opioid Reversal Ondansetron HCl 2 mg 09/03/20 06:00 09/05/20 14:22 Ondansetron 4 Mg/2 Ml Vial IVP 2 mg Q8H PRN Administration Nausea And Vomiting Pantoprazole Sodium 40 mg 09/06/20 08:30 09/06/20 10:30 Pantoprazole 40 Mg Tablet PO 40 mg AC-[id number] TOBIN Administration Objective - Vital Signs Vital signs: Vital Signs Temp 97.6 F 09/06/20 20:00 Pulse 88 09/06/20 21:00 Resp 16 09/06/20 21:00 BP 123/57 09/06/20 21:00 Pulse Ox 96 10/20/20 21:00 Intake & Output 09/06/20 09/06/20 09/07/20 06:59 18:59 06:59 Intake Total 471.912 728 180 Output Total 42 212 12 Balance 429.912 516 168 Weight 64.3 kg 64.3 kg Intake: IV 459 428 180 .09 80 120 20 A-Line flush 39 18 Piperacillin-Tazobactam 3 100 .375 gm In Sodium Chloride 0.9% 100 ml @ 25 mls/hr IVPB Q12HR TOBIN Rx #:[id number] Piperacillin-Tazobactam 3 100 .375 gm In Sodium Chloride 0.9% 100 ml @ 25 mls/hr IVPB Q8HR TOBIN Rx# :[id number] Sodium Chloride 0.9% 500 240 240 60 ml 500 ml @ 20 mls/hr IV .Q24H TOBIN Rx#:[id number] Intake, IV Titration 12.912 Amount Norepinephrine 8 mg In 12.912 Sodium Chloride 0.9% 250 ml @ 0.05 MCG/KG/MIN 4.52 mls/hr IV .Q24H TOBIN Rx#: [id number] Oral 300 Output: Urine 17 12 12 Stool 25 200 Other: Voiding Method Indwelling Catheter Indwelling Catheter Indwelling Catheter ABP, PAP, CO, CI - Last Documented Arterial Blood Pressure 164/64 - Exam GENERAL: The patient is alert and oriented x2-3, not in any acute distress. HEENT: Pupils are round and equally reacting to light. EOMI. No scleral icterus. No conjunctival pallor. Normocephalic, atraumatic. No pharyngeal erythema. No thyromegaly. CARDIOVASCULAR: S1 and S2 present. No murmurs, rubs, or gallops. PULMONARY: Chest is clear to auscultation, no wheezing or crackles. ABDOMEN: Soft, nontender, nondistended, normoactive bowel sounds. No palpable organomegaly. MUSCULOSKELETAL: No joint swelling or deformity. EXTREMITIES: No cyanosis, clubbing, or pedal edema. NEUROLOGICAL: Gross neurological examination did not reveal any focal deficits. -SKIN: Mild trunk rashes. no petechiae. Stage II coccygeal pressure ulcer, - Labs CBC & Chem 7: 09/06/20 04:50 09/06/20 04:50 Labs: Abnormal Lab Results - Last 24 Hours (Table) 09/05/20 09/05/20 09/06/20 Range/Units 13:52 13:52 04:50 RBC 2.65 L (3.80-5.40) m/uL Hgb 8.5 L (11.4-16.0) gm/dL Hct 26.9 L (34.0-46.0) % MCV 101.4 H (80.0-100.0) fL RDW 17.7 H (11.5-15.5) % Plt Count 74 L (150-450) k/uL Lymphocytes # 0.6 L (1.0-4.8) k/uL Eosinophils # 0.9 H (0-0.7) k/uL Sodium (137-145) mmol/L Chloride (98-107) mmol/L BUN (7-17) mg/dL Creatinine (0.52-1.04) mg/dL Calcium (8.4-10.2) mg/dL [place] Screen POSITIVE H (NEGATIVE) Complement C3 58.9 L (80.0-207.0) mg/dL 09/06/20 Range/Units 04:50 RBC (3.80-5.40) m/uL Hgb (11.4-16.0) gm/dL Hct (34.0-46.0) % MCV (80.0-100.0) fL RDW (11.5-15.5) % Plt Count (150-450) k/uL Lymphocytes # (1.0-4.8) k/uL Eosinophils # (0-0.7) k/uL Sodium 135 L (137-145) mmol/L Chloride 108 H (98-107) mmol/L BUN 27 H (7-17) mg/dL Creatinine 3.87 H (0.52-1.04) mg/dL Calcium 7.4 L (8.4-10.2) mg/dL [place] Screen (NEGATIVE) Complement C3 (80.0-207.0) mg/dL Microbiology - Last 24 Hours (Table) 09/02/20 16:31 Blood Culture - Preliminary Blood No Growth after 96 hours 09/02/20 16:14 Blood Culture - Preliminary Blood No Growth after 96 hours Assessment and Plan Assessment: Oliguric acute kidney injury, status post hemodialysis Sepsis secondary to the recent UTI Stage II coccygeal pressure ulcer History of colon cancer status post colostomy Bilateral pleural effusion Plan: This is a pleasant 79 years old female who presents with acute renal failure, continue with hemodialysis as per nephrology service. Antibiotics with infectious disease on the case. Also follow-up recommendation by pulmonary/critical care team Labs and medication were reviewed.. Continue same treatment. Continue with symptomatic treatment. Resume home medication. Monitor lytes and vitals. DVT and GI prophylaxis. Further recommendationsas per clinical course of the patient DVT prophylaxis: Subcutaneous heparin GI Prophylaxis: Ppi PT/OT: Pending Prognosis is guarded
--- NOTE | 2020-09-06 21:55 | PN ---
PROGRESS NOTE DATE OF SERVICE: 09/06/2020 REASON FOR FOLLOWUP: Pneumonia and UTI. INTERVAL HISTORY: The patient is currently afebrile. The patient is breathing comfortably. Denies having any chest pain. Minimal cough. No abdominal pain. Complains of pain to the sacral wound area. No diarrhea. PHYSICAL EXAMINATION: Blood pressure 123/71 with a pulse of 87, temperature is 97.6. She is 97% on room air. General description is an elderly female lying in bed in no distress. RESPIRATORY SYSTEM: Unlabored breathing with decreased breath sounds at the base. No wheeze. HEART: S1, S2. Regular rate and rhythm. ABDOMEN: Soft. No tenderness. LABS/IMAGING: Hemoglobin is 8.5, white count 9.5, BUN of 27, creatinine 3.87. Blood culture has been negative. Urine is negative. Chest x-ray shows small to moderate left pleural effusion with accompanying opacity. DIAGNOSTIC IMPRESSION AND PLAN: 1. Patient with elevated white count, multifactorial, with initial concern for possible urinary tract infection, now with concern about possible pneumonia. Urine culture has been negative. Blood culture negative. Patient's white count normalized. Currently on Zosyn; to continue and monitor clinical course closely. 2. Patient with chronic back pain in a patient with recent methicillin- susceptible Staphylococcus aerus bacteremia. Patient was offered MRI, which she refused, mentioning back pain has improved as well. MMODL / IJN: [id number] / MTDD
[2020-09-07 04:06] LABS: ALT <6 U/L (4-34); AST 23 U/L (14-36); African American GFR (CKD) 9 (>60 ml/min/1.73 sqM); Albumin 1.9 g/dL (3.5-5.0); Alkaline Phosphatase 94 U/L (38-126); Anion Gap 7 mmol/L; Blood Urea Nitrogen 33 mg/dL (7-17); Calcium 7.6 mg/dL (8.4-10.2); Carbon Dioxide 18 mmol/L (22-30); Chloride 109 mmol/L (98-107); Glucose 90 mg/dL (74-99); Non-African American GFR(CKD) 8 (>60 ml/min/1.73 sqM); Potassium 4.5 mmol/L (3.5-5.1); Sodium 134 mmol/L (137-145); Total Bilirubin 0.5 mg/dL (0.2-1.3); Total Protein 5.2 g/dL (6.3-8.2)
[2020-09-07 04:18] LABS: Anisocytosis Slight; Basophils # (A) 0.1 k/uL (0-0.2); Basophils % (A) 1 %; Eosinophils # (A) 0.8 k/uL (0-0.7); Eosinophils % (A) 8 %; HCT 30.3 % (34.0-46.0); HGB 9.2 gm/dL (11.4-16.0); Hypochromasia Marked; Lymphocytes # (A) 0.8 k/uL (1.0-4.8); Lymphocytes % (A) 9 %; MCHC 30.5 g/dL (31.0-37.0); MCV 104.8 fL (80.0-100.0); Macrocytosis Moderate; Mean Platelet Volume 9.3; Monocytes # (A) 0.5 k/uL (0-1.0); Monocytes % (A) 5 %; Neutrophils # (A) 6.8 k/uL (1.3-7.7); Neutrophils % (A) 74 %; RBC 2.89 m/uL (3.80-5.40); RDW 17.5 % (11.5-15.5); WBC 9.2 k/uL (3.8-10.6)
[2020-09-07 04:24] LABS: Platelet Count 69 k/uL (150-450)
[2020-09-07 07:03] LABS: C-ANCA <1:20 Titer (<1:20)
[2020-09-07] MEDS: PANTOPRAZOLE 40 MG TABLET PO SCH (07:04)
--- NOTE | 2020-09-07 08:39 | XR ---
EXAMINATION TYPE: XR chest 1V portable DATE OF EXAM: 09/07/2020 CLINICAL HISTORY: Shortness of breath TECHNIQUE: Portable semiupright view of the chest COMPARISON: 09/06/2020 chest radiograph FINDINGS: Right internal jugular hemodialysis catheter distal tip at the cavoatrial junction. The ca rdiomediastinal silhouette is within normal limits for size. Moderate left pleural effusion is mildly increased small right pleural effusion. Bibasilar airspace opacities. Biapical pleural thickening. N o pneumothorax. Coarsened interstitial lung markings. The osseous structures are intact. IMPRESSION: Mildly increased small right pleural effusion. Persistent moderate left pleural effusion and bibasilar airspace opacities.
--- NOTE | 2020-09-07 09:00 | P.PN ---
Subjective Patient is seen in follow-up for acute kidney injury, currently hemodialysis dependent. Remains anuric. Off vasopressors. Hemoglobin improved post blood transfusion on September 05. Scheduled for dialysis today. No changes overnight. Vital signs are stable. General: The patient appeared well nourished and normally developed. HEENT: Head exam is unremarkable. Neck is without jugular venous distension. LUNGS: Breath sounds decreased. HEART: Rate and Rhythm are regular. ABDOMEN: Soft, nontender. EXTREMITITES: 2+ edema. Objective - Vital Signs Vital signs: Vital Signs Temp 97.7 F 09/07/20 04:00 Pulse 85 09/07/20 07:00 Resp 18 09/07/20 07:00 BP 120/74 09/07/20 07:00 Pulse Ox 96 09/07/20 07:00 Intake & Output 09/06/20 09/07/20 09/07/20 18:59 06:59 18:59 Intake Total 728 420 30 Output Total 212 222 0 Balance 516 198 30 Weight 64.3 kg 65.6 kg Intake: IV 428 420 30 .09 120 80 10 A-Line flush 18 Piperacillin-Tazobactam 3 100 .375 gm In Sodium Chloride 0.9% 100 ml @ 25 mls/hr IVPB Q12HR TOBIN Rx #:[id number] Sodium Chloride 0.9% 500 240 240 20 ml 500 ml @ 20 mls/hr IV .Q24H TOBIN Rx#:[id number] Oral 300 Output: Urine 12 22 0 Stool 200 200 Other: Voiding Method Indwelling Catheter Indwelling Catheter ABP, PAP, CO, CI - Last Documented Arterial Blood Pressure 164/64 - Labs CBC & Chem 7: 09/07/20 03:25 09/07/20 03:25 Labs: Abnormal Lab Results - Last 24 Hours (Table) 09/05/20 09/05/20 09/05/20 Range/Units 13:52 13:52 13:52 RBC (3.80-5.40) m/uL Hgb (11.4-16.0) gm/dL Hct (34.0-46.0) % MCV (80.0-100.0) fL MCHC (31.0-37.0) g/dL RDW (11.5-15.5) % Plt Count (150-450) k/uL Lymphocytes # (1.0-4.8) k/uL Eosinophils # (0-0.7) k/uL Sodium (137-145) mmol/L Chloride (98-107) mmol/L Carbon Dioxide (22-30) mmol/L BUN (7-17) mg/dL Creatinine (0.52-1.04) mg/dL Calcium (8.4-10.2) mg/dL Total Protein (6.3-8.2) g/dL Albumin (3.5-5.0) g/dL [place] Screen POSITIVE H (NEGATIVE) Complement C3 58.9 L (80.0-207.0) mg/dL Tot Complement (CH50) 35 L (42 - 95) U/mL 09/07/20 09/07/20 Range/Units 03:25 03:25 RBC 2.89 L (3.80-5.40) m/uL Hgb 9.2 L (11.4-16.0) gm/dL Hct 30.3 L (34.0-46.0) % MCV 104.8 H (80.0-100.0) fL MCHC 30.5 L (31.0-37.0) g/dL RDW 17.5 H (11.5-15.5) % Plt Count 69 L (150-450) k/uL Lymphocytes # 0.8 L (1.0-4.8) k/uL Eosinophils # 0.8 H (0-0.7) k/uL Sodium 134 L (137-145) mmol/L Chloride 109 H (98-107) mmol/L Carbon Dioxide 18 L (22-30) mmol/L BUN 33 H (7-17) mg/dL Creatinine 4.75 H (0.52-1.04) mg/dL Calcium 7.6 L (8.4-10.2) mg/dL Total Protein 5.2 L (6.3-8.2) g/dL Albumin 1.9 L (3.5-5.0) g/dL [place] Screen (NEGATIVE) Complement C3 (80.0-207.0) mg/dL Tot Complement (CH50) (42 - 95) U/mL Microbiology - Last 24 Hours (Table) 09/02/20 16:31 Blood Culture - Preliminary Blood No Growth after 96 hours 09/02/20 16:14 Blood Culture - Preliminary Blood No Growth after 96 hours Assessment and Plan Plan: Assessment: 1. Acute kidney injury most likely due to ATN from sepsis and antibiotic. Rule out GN. Currently hemodialysis dependent. Oliguric. Permacath placed September 06. 2. Recent UTI and bacteremia. Cultures negative this admission. 3. Hyperkalemia secondary to acute kidney injury. Improved postdialysis. 4. Metabolic acidosis secondary to acute kidney injury and ostomy drainage. Status post bicarb drip. Expect improvement postdialysis. 5. Anemia of chronic kidney disease. Iron replete. Maintained on Aranesp. Status post blood transfusion September 05. 6. Volume overload. Improving with UF. Plan: Hemodialysis today. She will be maintained on Saturday schedule. Maintain Lasix 80 mg orally twice daily. 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 Continue to monitor for renal recovery. Phosphorus normal.
[2020-09-07] MEDS: PIPERACILLIN-TAZOBACTAM 3.375 GM in SODIUM CHLORIDE 0.9% 100 ML IVPB SCH ×2 (09:43→20:19)
--- NOTE | 2020-09-07 09:48 | P.PN ---
Subjective Progress Note Date: 09/07/20 Principal diagnosis: Acute kidney injury and hyperkalemia 79-year-old white female patient of Dr. Bojorquez from the [facility] who had a recent hospitalization 3 weeks ago at the [facility] for acute urinary tract infection and sepsis. Patient was released home with the left upper midline access for antibiotic infusions. Yesterday patient went to see her PCP for routine blood work which revealed significantly abnormal renal function, and hypokalemia and patient was directed to come to the emergency department for evaluation and treatment. Patient is complaining of being more short of breath, she has developed pressure ulcer on her coccyx stage II, which is causing her discomfort, she also has a diffuse papular rash all over her body, arms, torso, legs, which is itchy. She denied any chest pain, denied any cough, phlegm production. She has a colostomy in place for previous history of colon resection for colon cancer, he denies any nausea vomiting or diarrhea. She denies any headaches. Apparently patient has not been able to eat much. She has recently been anemic and has required blood transfusion. Her daughters at the bedside and providing much of the history although she is not sure of the details, she is not sure of the name of the antibiotic the patient was discharged home on, or whether or not patient had any diarrhea at home. Patient's past medical history includes COPD, previous history of smoking, hyperlipidemia, chronic kidney disease, previous history of urinary tract infections, moderate protein calorie malnutrition, colon cancer in 2014, chronic back pain, scoliosis. She was discharged from the [facility] on 08/18/2020, her blood cultures were positive for MSSA, and echocardiogram revealed no vegetation. In the emergency department blood work showed BUN of 88, creatinine of 8.14, with potassium of 7.5 which was treated with insulin, 50% dextrose, calcium gluconate, nephrology has been consulted, troponin is negative, LFTs are within normal limits, urinalysis is significantly infected, urine culture has been sent, blood cultures have been sent, patient is anuric, she was given an amp of sodium bicarbonate, and she is on bicarbonate infusion at a rate of 70 ML per hour. Repeat blood work showed persistent hyperkalemia with potassium of 7.2, the plan is for another lab work, and nephrology is planning on vascular surgery consult for placement of temporary hemodialysis catheter and initiation of hemodialysis. Patient was reevaluated today on 09/03/20, patient was seen yesterday on consultation, and she was started on hemodialysis for hyperkalemia and acute kidney injury. Her kidney injury was felt to be secondary to antibiotics, and possibly secondary to her sepsis and bacteremia for which she was treated at [facility]. Patient was eventually discharged on antibiotics at home, and she developed hyperkalemia with acute kidney injury. I saw the patient yesterday, and I established central IV access, and a right radial arterial line was placed, she was also seen by vascular surgery and a dialysis catheter was placed patient received dialysis yesterday, and her potassium is down to 5.5 today. She is on Rocephin for presumptive urinary tract infection, she does have leukocytosis with WBC count of 22,000 today. Patient is requiring norepinephrine at 0.17 mcg/kg/m, and her mean arterial pressure is about 60 today. Patient is having episodes of dry heaves, but no vomiting. Patient was reevaluated today on 09/04/20, remains in the ICU, patient presented initially with hyperkalemia and acute kidney injury she was recently treated at [facility] for urinary tract infection and gram-negative bacteremia. Patient is now on hemodialysis, chest x-ray is showing worsening of the left lower lobe with some component of pulmonary edema and suspect underlying pneumonia. Patient has been on Rocephin, and she is being followed by infectious disease, may have to consider broadening the spectrum of her coverage, but patient had recent issues related to antibiotics and contributing to her acute kidney injury. Hence we'll let infectious disease decided on broadening the spectrum of antibiotics. In the meantime patient is being dialyzed, and she is followed by nephrology regarding her renal status. Patient is still complaining of intermittent episodes of dry heaves, minimal shortness of breath, no cough, no wheezing, no fever, no chills, no hemoptysis and no chest pain. Labs today showed improvement in her WBC count down to 14.7 hemoglobin is 7.3. Electrolytes are normal renal profile showed a BUN of 40 creatinine of 4.52. Findings on the chest x-ray are a bit concerning specially in the left lower lobe On 09/05/2020 patient seen in follow-up in the intensive care unit. Patient is awake and alert, oriented 3, is on 1 L of oxygen per nasal cannula, her pulse ox is 98%, hemodynamically patient is stable, she has been afebrile, she remains on antibiotics form of Zosyn, for recent history of urinary tract infection, blood and urine cultures from this admission have been negative, hemodynamically patient is stable, she is on point and was sitting at a rate of 20 ML per hour, no vasoactive drips. Today's hemoglobin is 6.6 with the no visible sign of bleeding, and patient will receive 1 unit of packed red blood cells, she is having hemodialysis today. Levothroid drip has been off since 4:00 this mo rning. She will receive her third hemodialysis treatment today. Nephrology is following. Today's labs have been reviewed, showing white blood cell count trending down, 9.5 on today's labs. Hemoglobin is 6.6 for which the patient is receiving a unit of blood, sodium is 131, the rest review a lites were within normal limits, BUN is 45 creatinine is 5.18. Tolerating oral intake, no nausea vomiting, her colostomy is producing liquid colored brown stool. On 09/06/2020 patient seen in follow-up in the intensive care unit, her levo fed has been weaned off since 3:30 this morning, she remains on 0.9 normal saline at rate of 30 ML per hour. Denies any difficulty breathing, she is currently on room air, with a pulse ox of 99%, blood pressure stable, patient is in sinus mechanism with a rate of 91 BPM. Yesterday she had a hemodialysis treatment would removal of 2.5 L still has significant edema involving her bilateral lower extremities, and edema involving right arm greater than left arm, sounds reveal some basilar crackles, no significant wheezing, or rhonchi, no cough. Abdomen is soft, no nausea or vomiting, patient is tolerating oral intake, no significant diarrhea out of the colostomy. She remains on antibiotics, in the form of Zosyn, and all of her cultures including urine culture and blood cultures remain negative during this admission. ID service is following, patient has been afebrile, no altered mentation. On 09/07/2020 patient seen in follow-up in the intensive care unit, she's been stable overnight, no acute events, she is sitting up in bed, she is oriented 3, no altered mentation, no confusion, no difficulty breathing, she is on room air pulse ox of 96%, she is on 0.9 normal saline at a rate of 30 ML per hour. She had hemodialysis yesterday with removal of 2.5 L and fluid, fluid volume status is improving, still has edema in lower extremities and upper extremities, which is improving, lung sounds diminished at the bases, with a few crackles, no respiratory distress. Blood and urine cultures have shown no growth thus far. She is on Zosyn for antibiotic coverage, ID service is following, she is on oral Lasix, nephrology is following, tolerating oral intake, she's had no nausea vomiting or diarrhea. Objective - Vital Signs Vital signs: Vital Signs Temp 97.7 F 09/07/20 04:00 Pulse 85 09/07/20 07:00 Resp 18 09/07/20 07:00 BP 120/74 09/07/20 07:00 Pulse Ox 96 09/07/20 07:00 Intake & Output 09/06/20 09/07/20 09/07/20 18:59 06:59 18:59 Intake Total 728 420 30 Output Total 212 222 0 Balance 516 198 30 Weight 64.3 kg 65.6 kg Intake: IV 428 420 30 .09 120 80 10 A-Line flush 18 Piperacillin-Tazobactam 3 100 .375 gm In Sodium Chloride 0.9% 100 ml @ 25 mls/hr IVPB Q12HR [facility] Rx #:[id number] Sodium Chloride 0.9% 500 240 240 20 ml 500 ml @ 20 mls/hr IV .Q24H [facility] Rx#:[id number] Oral 300 Output: Urine 12 22 0 Stool 200 200 Other: Voiding Method Indwelling Catheter Indwelling Catheter ABP, PAP, CO, CI - Last Documented Arterial Blood Pressure 164/64 - Exam GENERAL EXAM: Alert, very pleasant, frail-looking 79-year-old white female, on room air with the pulse ox of 96-97%, resting in bed, complaining of mild itchiness, from the rash which has significantly improved over the weekend, hardly any redness left, comfortable in no apparent distress. HEAD: Normocephalic/atraumatic. EYES: Normal reaction of pupils, equal size. Conjunctiva pink, sclera white. NOSE: Clear with pink turbinates. THROAT: No erythema or exudates. NECK: No masses, no JVD, no thyroid enlargement, no adenopathy. CHEST: No chest wall deformity. Symmetrical expansion. LUNGS: Equal air entry with no crackles, wheeze, rhonchi or dullness. CVS: Regular rate and rhythm, normal S1 and S2, no gallops, no murmurs, no rubs ABDOMEN: Soft, nontender. No hepatosplenomegaly, normal bowel sounds, no guarding or rigidity. EXTREMITIES: No clubbing, 1+ lower extremity edema, no cyanosis, 2+ pulses and upper and lower extremities. Right arm swelling pitting, greater than the left arm MUSCULOSKELETAL: Muscle strength and tone normal. SPINE: No scoliosis or deformity SKIN: Generalized rash on the chest, trunk, back, arms and legs has si gnificantly improved over the weekend, hardly any redness left, with just some isolated areas of macules, mild itchiness, which has also improved, and patient has stage II breakdown on her coccyx CENTRAL NERVOUS SYSTEM: Alert and oriented -3. No focal deficits, tone is normal in all 4 extremities. PSYCHIATRIC: Alert and oriented -3. Appropriate affect. Intact judgment and insight. - Labs CBC & Chem 7: 09/07/20 03:25 09/07/20 03:25 Labs: Abnormal Lab Results - Last 24 Hours (Table) 09/05/20 09/05/20 09/05/20 Range/Units 13:52 13:52 13:52 RBC (3.80-5.40) m/uL Hgb (11.4-16.0) gm/dL Hct (34.0-46.0) % MCV (80.0-100.0) fL MCHC (31.0-37.0) g/dL RDW (11.5-15.5) % Plt Count (150-450) k/uL Lymphocytes # (1.0-4.8) k/uL Eosinophils # (0-0.7) k/uL Sodium (137-145) mmol/L Chloride (98-107) mmol/L Carbon Dioxide (22-30) mmol/L BUN (7-17) mg/dL Creatinine (0.52-1.04) mg/dL Calcium (8.4-10.2) mg/dL Total Protein (6.3-8.2) g/dL Albumin (3.5-5.0) g/dL [place] Screen POSITIVE H (NEGATIVE) Complement C3 58.9 L (80.0-207.0) mg/dL Tot Complement (CH50) 35 L (42 - 95) U/mL 09/07/20 09/07/20 Range/Units 03:25 03:25 RBC 2.89 L (3.80-5.40) m/uL Hgb 9.2 L (11.4-16.0) gm/dL Hct 30.3 L (34.0-46.0) % MCV 104.8 H (80.0-100.0) fL MCHC 30.5 L (31.0-37.0) g/dL RDW 17.5 H (11.5-15.5) % Plt Count 69 L (150-450) k/uL Lymphocytes # 0.8 L (1.0-4.8) k/uL Eosinophils # 0.8 H (0-0.7) k/uL Sodium 134 L (137-145) mmol/L Chloride 109 H (98-107) mmol/L Carbon Dioxide 18 L (22-30) mmol/L BUN 33 H (7-17) mg/dL Creatinine 4.75 H (0.52-1.04) mg/dL Calcium 7.6 L (8.4-10.2) mg/dL Total Protein 5.2 L (6.3-8.2) g/dL Albumin 1.9 L (3.5-5.0) g/dL [place] Screen (NEGATIVE) Complement C3 (80.0-207.0) mg/dL Tot Complement (CH50) (42 - 95) U/mL Microbiology - Last 24 Hours (Table) 09/02/20 16:31 Blood Culture - Preliminary Blood No Growth after 96 hours 09/02/20 16:14 Blood Culture - Preliminary Blood No Growth after 96 hours Assessment and Plan Plan: Assessment: #1. Acute kidney injury related to possibility of ATN and acute hyperkalemia with the serum potassium level of 7.5, requiring initiation of hemodialysis, and on 09/05/2020 patient is status post 3 treatments with hemodialysis #2. Recent hospitalization for urinary tract infection with sepsis, MSSA bacteremia at the [facility], discharged home on 08/18/2020 with a midline access and IV antibiotics. Echocardiogram completed at [facility] showed no evidence of vegetation #3. Chronic kidney disease, baseline unknown #4. Acute urinary tract infection, currently on Zosyn #5. Multiple electrolyte abnormalities, including hypokalemia, hyponatremia related to acute kidney injury, dehydration #6. History of colon cancer in 2013, status post colostomy #7. Nonobstructing renal stones in the upper and mid left kidney and right renal cyst #8. Right pleural effusion #9. Previous history of urinary tract infections #10. Recent history of anemia requiring blood transfusion #11. Stage II decubitus ulcer on coccyx present on admission #12. Scoliosis #13. History of chronic low back pain #14. Protein calorie malnutrition #15. History of COPD with previous history of smoking Plan: Continue current medical treatment, continues on Zosyn cultures have been negative thus far, vitals have been stable. No acute issues overnight. Breathing comfortably. Fluid volume status is improving, nephrology is following, will await their further recommendations in terms of next dialysis treatment. From pulmonary/critical care perspective patient is stable to transfer out of intensive care unit today to medical surgical floor I performed a history & physical examination of the patient and discussed their management with my nurse practitioner, Amara Zelaya. I reviewed the nurse practitioner's note and agree with the documented findings and plan of care. Lung sounds are positive for diminished breath sounds. The findings and the impression was discussed with the patient. I attest to the documentation by the nurse practitioner. Time with Patient: Less than 30
[2020-09-07 10:38] LABS: Protein, Total 5.2 g/dL (6.2-8.2)
[2020-09-07] MEDS ORDERED: HEPARIN SODIUM,PORCINE 5,000 UNIT/ML 1 ML VIAL ONE (12:00)
[2020-09-07] MEDS: MIDODRINE 5 MG TAB PO PRN (12:22)
[2020-09-07] MEDS: HEPARIN SODIUM,PORCINE 5,000 UNIT/ML 1 ML VIAL SQ SCH ×3 (12:26→20:19)
[2020-09-07] MEDS: SODIUM CHLORIDE 0.9% 500 ML 500 ML IV SCH (12:27)
[2020-09-07] MEDS: FUROSEMIDE 80 MG TAB PO SCH ×2 (12:35→17:14)
[2020-09-07 19:30] LABS: Anisocytosis Slight; HCT 32.2 % (34.0-46.0); Hypochromasia Marked; MCH 31.8 pg (25.0-35.0); MCHC 31.2 g/dL (31.0-37.0); MCV 102.1 fL (80.0-100.0); Macrocytosis Moderate; Mean Platelet Volume 11.1; RBC 3.16 m/uL (3.80-5.40); RDW 17.7 % (11.5-15.5); WBC 11.7 k/uL (3.8-10.6)
[2020-09-07 19:32] LABS: Platelet Count 48 k/uL (150-450)
--- NOTE | 2020-09-07 23:35 | P.PN ---
Subjective 79-year-old female with a past medical history significant for a recent urinary tract infection which caused her sepsis some [facility]. Patient started antibiotics in the hospital after 9 days was released home with the midline access for more antibiotics. Patient also has been told she has kidney failure and so she has had increased swelling in her legs and decided to come the emergency department. Patient complains that she's feeling a little more short of breath. Patient denies any fever chills per patient denies chest pain or palpitations. Patient found to have acute kidney injury, needing hemodialysis. So she has sepsis and infectious disease on the case, currently she is on Zosyn. Colostomy is functioning from her previous surgery for colon cancer. She has bilateral pleural effusion, and pulmonary team considering thoracocentesis however chest ultrasound showing fluid pockets of 2-4 cm on either side. Labs showing mild leukocytosis with WBC 10.7 K, and anemia with 9.4 and low platelets are 60 7K. INR is not elevated. She is followed by several consult was obtained and pulmonary, infectious disease and nephrology services 09/06/2020 Patient is fully awake and oriented in the ICU. She needed short period of pressors last night however her blood pressure is more stable now on pressors. She complains only from her low back sore from her pressure ulcer, pain with movement only Patient is currently on clear liquid diet and we will advance him to follow liquid diet Patient underwent dialysis catheter placement today Patient can contact the general medical floor per ICU team 09/07/2020 Patient fully awake and resting comfortably in bed. No specific complaints Hemodynamically stable. She had slight drop the blood pressure overnight. Patient is placed on midodrine when necessary for hypertension labs reviewed and looks stable generally except slight increase of W2 to 11.2 and slight decrease in platelet to 48K She remains on Zosyn for complicated UTI, Patient is stable to be transferred out of the ICU, with no change in her clinical status for compared to yesterday Patient will benefit from an ECF for subacute rehab, social sciences instructor consult Review of systems CONSTITUTIONAL: No fever, no malaise, no fatigue. HEENT: No recent visual problems or hearing problems. Denied any sore throat. CARDIOVASCULAR: No orthopnea, PND, no palpitations, no syncope. PULMONARY: No shortness of breath, no cough, no hemoptysis. GASTROINTESTINAL: No diarrhea, no nausea, no vomiting, no abdominal pain. Normoa ctive bowel sounds. NEUROLOGICAL: No headaches, no weakness, no numbness. Active Medications Generic Name Dose Route Start Last Admin Trade Name Freq PRN Reason Stop Dose Admin Hydrocodone Bitart/Acetaminophen 1 each 09/05/20 09:43 09/05/20 14:20 Hydrocodone/Apap 7.5-325mg 1 Each Tab PO 1 each Q6H PRN Administration Pain Calamine 1 applic 09/02/20 16:45 09/04/20 07:02 Calamine/Zinc Oxide Lotion 177 Ml Btl TOPICAL 1 applic BID PRN Administration Skin Irritation Darbepoetin Darrion 40 mcg 09/05/20 10:00 09/05/20 13:51 Darbepoetin Darrion 40 Mcg/0.4 Ml Syringe SQ 40 mcg Q7D [facility] Administration Furosemide 80 mg 09/06/20 16:00 09/06/20 17:04 Furosemide 80 Mg Tab PO 80 mg BID@0900,1600 [facility] Administration Heparin Sodium (Porcine) 5,000 unit 09/02/20 21:00 09/06/20 20:08 Heparin Sodium,Porcine 5,000 Unit/Ml 1 Ml Vial SQ 5,000 unit Q12HR [facility] Administration Hydrocortisone 1 applic 09/02/20 15:00 09/04/20 19:59 Hydrocortisone 1% Cream 30 Gm Tube TOPICAL 1 applic QID PRN Administration Skin Irritation Hydromorphone HCl 1 mg 09/02/20 14:30 09/03/20 16:06 Hydromorphone 1 Mg/Ml 1 Ml Syringe IVP 1 mg Q4HR PRN Administration Pain Sodium Chloride 500 mls @ 20 mls/hr 09/04/20 10:00 09/06/20 10:31 Saline 0.9% IV 20 mls/hr .Q24H [facility] Administration Piperacillin Sod/Tazobactam 100 mls @ 25 mls/hr 09/05/20 21:00 09/06/20 20:09 Sod 3.375 gm/ Sodium Chloride IVPB 25 mls/hr Q12HR [facility] Administration Naloxone HCl 0.2 mg 09/02/20 16:48 Naloxone 0.4 Mg/Ml 1 Ml Vial IV Q2M PRN Opioid Reversal Ondansetron HCl 2 mg 09/03/20 06:00 09/05/20 14:22 Ondansetron 4 Mg/2 Ml Vial IVP 2 mg Q8H PRN Administration Nausea And Vomiting Pantoprazole Sodium 40 mg 09/06/20 08:30 09/06/20 10:30 Pantoprazole 40 Mg Tablet PO 40 mg [id number] TOBIN Administration Objective - Vital Signs Vital signs: Vital Signs Temp 97.7 F 09/07/20 08:00 Pulse 95 09/07/20 09:00 Resp 22 09/07/20 09:00 BP 125/78 09/07/20 09:00 Pulse Ox 95 09/07/20 09:00 Intake & Output 09/06/20 09/07/20 09/07/20 18:59 06:59 18:59 Intake Total 728 420 330 Output Total 212 222 0 Balance 516 198 330 Weight 64.3 kg 65.6 kg Intake: IV 428 420 80 .09 120 80 20 A-Line flush 18 Piperacillin-Tazobactam 3 100 .375 gm In Sodium Chloride 0.9% 100 ml @ 25 mls/hr IVPB Q12HR [facility] Rx #:[id number] Sodium Chloride 0.9% 500 240 240 60 ml 500 ml @ 20 mls/hr IV .Q24H [facility] Rx#:[id number] Oral 300 250 Output: Urine 12 22 0 Stool 200 200 Other: Voiding Method Indwelling Catheter Indwelling Catheter Indwelling Catheter ABP, PAP, CO, CI - Last Documented Arterial Blood Pressure 164/64 - Exam GENERAL: The patient is alert and oriented x2-3, not in any acute distress. HEENT: Pupils are round and equally reacting to light. EOMI. No scleral icterus. No conjunctival pallor. Normocephalic, atraumatic. No pharyngeal erythema. No thyromegaly. CARDIOVASCULAR: S1 and S2 present. No murmurs, rubs, or gallops. PULMONARY: Chest is clear to auscultation, no wheezing or crackles. ABDOMEN: Soft, nontender, nondistended, normoactive bowel sounds. No palpable organomegaly. MUSCULOSKELETAL: No joint swelling or deformity. EXTREMITIES: No cyanosis, clubbing, or pedal edema. NEUROLOGICAL: Gross neurological examination did not reveal any focal deficits. -SKIN: Mild trunk rashes. no petechiae. Stage II coccygeal pressure ulcer, - Labs CBC & Chem 7: 09/07/20 18:56 10/21/20 03:25 Labs: Abnormal Lab Results - Last 24 Hours (Table) 09/05/20 09/05/20 09/05/20 Range/Units 13:52 13:52 13:52 RBC (3.80-5.40) m/uL Hgb (11.4-16.0) gm/dL Hct (34.0-46.0) % MCV (80.0-100.0) fL MCHC (31.0-37.0) g/dL RDW (11.5-15.5) % Plt Count (150-450) k/uL Lymphocytes # (1.0-4.8) k/uL Eosinophils # (0-0.7) k/uL Sodium (137-145) mmol/L Chloride (98-107) mmol/L Carbon Dioxide (22-30) mmol/L BUN (7-17) mg/dL Creatinine (0.52-1.04) mg/dL Calcium (8.4-10.2) mg/dL Total Protein (6.3-8.2) g/dL Total Protein (PEP) (6.2-8.2) g/dL Albumin (3.5-5.0) g/dL [place] Screen POSITIVE H (NEGATIVE) Complement C3 58.9 L (80.0-207.0) mg/dL Tot Complement (CH50) 35 L (42 - 95) U/mL 09/05/20 09/07/20 09/07/20 Range/Units 13:52 03:25 03:25 RBC 2.89 L (3.80-5.40) m/uL Hgb 9.2 L (11.4-16.0) gm/dL Hct 30.3 L (34.0-46.0) % MCV 104.8 H (80.0-100.0) fL MCHC 30.5 L (31.0-37.0) g/dL RDW 17.5 H (11.5-15.5) % Plt Count 69 L (150-450) k/uL Lymphocytes # 0.8 L (1.0-4.8) k/uL Eosinophils # 0.8 H (0-0.7) k/uL Sodium 134 L (137-145) mmol/L Chloride 109 H (98-107) mmol/L Carbon Dioxide 18 L (22-30) mmol/L BUN 33 H (7-17) mg/dL Creatinine 4.75 H (0.52-1.04) mg/dL Calcium 7.6 L (8.4-10.2) mg/dL Total Protein 5.2 L (6.3-8.2) g/dL Total Protein (PEP) 5.2 L (6.2-8.2) g/dL Albumin 1.9 L (3.5-5.0) g/dL [place] Screen (NEGATIVE) Complement C3 (80.0-207.0) mg/dL Tot Complement (CH50) (42 - 95) U/mL Microbiology - Last 24 Hours (Table) 09/02/20 16:31 Blood Culture - Preliminary Blood No Growth after 96 hours 09/02/20 16:14 Blood Culture - Preliminary Blood No Growth after 96 hours Assessment and Plan Assessment: Oliguric acute kidney injury, status post hemodialysis Sepsis secondary to the recent UTI Stage II coccygeal pressure ulcer History of colon cancer status post colostomy Bilateral pleural effusion Plan: This is a pleasant 79 years old female who presents with acute renal failure, continue with hemodialysis as per nephrology service. Antibiotics with infectious disease on the case. Also follow-up recommendation by puljana nieves/critical care team Labs and medication were reviewed.. Continue same treatment. Continue with symptomatic treatment. Resume home medication. Monitor lytes and vitals. DVT and GI prophylaxis. Further recommendationsas per clinical course of the patient DVT prophylaxis: Subcutaneous heparin GI Prophylaxis: Ppi PT/OT: BISHNU Prognosis is guarded
[2020-09-08 06:01] LABS: Anisocytosis Slight; HCT 34.1 % (34.0-46.0); HGB 10.2 gm/dL (11.4-16.0); Hypochromasia Marked; MCH 31.2 pg (25.0-35.0); MCHC 29.9 g/dL (31.0-37.0); MCV 104.4 fL (80.0-100.0); Macrocytosis Moderate; Mean Platelet Volume 9.3; RBC 3.27 m/uL (3.80-5.40); RDW 17.7 % (11.5-15.5); WBC 12.3 k/uL (3.8-10.6)
[2020-09-08 06:02] LABS: Platelet Count 56 k/uL (150-450)
[2020-09-08 06:04] LABS: Calcium 7.9 mg/dL (8.4-10.2); Potassium 4.6 mmol/L (3.5-5.1)
--- NOTE | 2020-09-08 08:59 | P.PN ---
Subjective Patient is seen in follow-up for acute kidney injury, currently hemodialysis dependent. Remains anuric. Off vasopressors. Hemoglobin improved post blood transfusion on September 05. She received a shortened treatment of hemodialysis yesterday due to tachycardia. Tolerated 700 mL ultrafiltration. Currently hemodynamically stable. Vital signs are stable. General: The patient appeared well nourished and normally developed. HEENT: Head exam is unremarkable. Neck is without jugular venous distension. LUNGS: Breath sounds decreased. HEART: Rate and Rhythm are regular. ABDOMEN: Soft, nontender. EXTREMITITES: 2+ edema. Objective - Vital Signs Vital signs: Vital Signs Temp 97.6 F 09/08/20 03:40 Pulse 89 09/08/20 03:40 Resp 14 09/08/20 03:40 BP 124/62 09/08/20 03:40 Pulse Ox 97 09/08/20 03:40 Intake & Output 09/07/20 09/08/20 09/08/20 18:59 06:59 18:59 Intake Total 750 300 Output Total 760 125 Balance -10 175 Intake: IV 200 300 .09 20 Piperacillin-Tazobactam 3 100 .375 gm In Sodium Chloride 0.9% 100 ml @ 25 mls/hr IVPB Q12HR [facility] Rx #:[id number] Sodium Chloride 0.9% 500 80 300 ml 500 ml @ 20 mls/hr IV .Q24H [facility] Rx#:[id number] Oral 550 Output: Urine 0 0 Stool 125 Hemodialysis 760 Other: Voiding Method Indwelling Catheter ABP, PAP, CO, CI - Last Documented Arterial Blood Pressure 164/64 - Labs CBC & Chem 7: 09/08/20 05:03 09/08/20 05:03 Labs: Abnormal Lab Results - Last 24 Hours (Table) 09/05/20 09/07/20 09/08/20 Range/Units 13:52 18:56 05:03 WBC 11.7 H 12.3 H (3.8-10.6) k/uL RBC 3.16 L 3.27 L (3.80-5.40) m/uL Hgb 10.0 L 10.2 L (11.4-16.0) gm/dL Hct 32.2 L (34.0-46.0) % MCV 102.1 H 104.4 H (80.0-100.0) fL MCHC 29.9 L (31.0-37.0) g/dL RDW 17.7 H 17.7 H (11.5-15.5) % Plt Count 48 L 56 L (150-450) k/uL Sodium (137-145) mmol/L Chloride (98-107) mmol/L Carbon Dioxide (22-30) mmol/L BUN (7-17) mg/dL Creatinine (0.52-1.04) mg/dL Calcium (8.4-10.2) mg/dL Total Protein (PEP) 5.2 L (6.2-8.2) g/dL 09/08/20 Range/Units 05:03 WBC (3.8-10.6) k/uL RBC (3.80-5.40) m/uL Hgb (11.4-16.0) gm/dL Hct (34.0-46.0) % MCV (80.0-100.0) fL MCHC (31.0-37.0) g/dL RDW (11.5-15.5) % Plt Count (150-450) k/uL Sodium 135 L (137-145) mmol/L Chloride 110 H (98-107) mmol/L Carbon Dioxide 18 L (22-30) mmol/L BUN 24 H (7-17) mg/dL Creatinine 3.96 H (0.52-1.04) mg/dL Calcium 7.9 L (8.4-10.2) mg/dL Total Protein (PEP) (6.2-8.2) g/dL Microbiology - Last 24 Hours (Table) 09/02/20 16:31 Blood Culture - Preliminary Blood No Growth after 120 hours 09/02/20 16:14 Blood Culture - Preliminary Blood No Growth after 120 hours Assessment and Plan Plan: Assessment: 1. Acute kidney injury most likely due to ATN from sepsis and antibiotic. Rule out GN - noted to have positive [place] and low C3 and total complement levels. Currently hemodialysis dependent. Oliguric. Permacath placed September 06. No evidence of hydronephrosis. 2. Recent UTI and bacteremia. Cultures negative this admission. 3. Hyperkalemia secondary to acute kidney injury and GI losses and colostomy. 4. Metabolic acidosis secondary to acute kidney injury and ostomy drainage. Status post bicarb drip. Expect improvement postdialysis. 5. Anemia of chronic kidney disease. Iron replete. Maintained on Aranesp. Status post blood transfusion September 05. 6. Volume overload. Improving with UF. Plan: Hemodialysis tomorrow. She will be maintained on Saturday schedule. Maintain Lasix 80 mg orally twice daily. manager of product to help facilitate outpatient hemodialysis. Continue to monitor for renal recovery. Phosphorus normal. Add oral sodium bicarbonate. Maintain midodrine as needed for hypotension. Patient currently unstable for kidney biopsy. Will consider down the road.
[2020-09-08] MEDS: PANTOPRAZOLE 40 MG TABLET PO SCH (09:00)
[2020-09-08] MEDS: PIPERACILLIN-TAZOBACTAM 3.375 GM in SODIUM CHLORIDE 0.9% 100 ML IVPB SCH ×2 (09:01→20:33)
[2020-09-08] MEDS: HEPARIN SODIUM,PORCINE 5,000 UNIT/ML 1 ML VIAL SQ SCH ×2 (09:01→20:33)
[2020-09-08] MEDS: FUROSEMIDE 80 MG TAB PO SCH ×2 (09:01→18:05)
[2020-09-08] MEDS: SODIUM BICARBONATE TAB 650 MG TAB PO SCH ×2 (09:08→20:33)
--- NOTE | 2020-09-08 09:32 | P.PN ---
Subjective Progress Note Date: 09/08/20 Principal diagnosis: Acute kidney injury and hyperkalemia 79-year-old white female patient of Dr. Bojorquez from the [facility] who had a recent hospitalization 3 weeks ago at the [facility] for acute urinary tract infection and sepsis. Patient was released home with the left upper midline access for antibiotic infusions. Yesterday patient went to see her PCP for routine blood work which revealed significantly abnormal renal function, and hypokalemia and patient was directed to come to the emergency department for evaluation and treatment. Patient is complaining of being more short of breath, she has developed pressure ulcer on her coccyx stage II, which is causing her discomfort, she also has a diffuse papular rash all over her body, arms, torso, legs, which is itchy. She denied any chest pain, denied any cough, phlegm production. She has a colostomy in place for previous history of colon resection for colon cancer, he denies any nausea vomiting or diarrhea. She denies any headaches. Apparently patient has not been able to eat much. She has recently been anemic and has required blood transfusion. Her daughters at the bedside and providing much of the history although she is not sure of the details, she is not sure of the name of the antibiotic the patient was discharged home on, or whether or not patient had any diarrhea at home. Patient's past medical history includes COPD, previous history of smoking, hyperlipidemia, chronic kidney disease, previous history of urinary tract infections, moderate protein calorie malnutrition, colon cancer in 2014, chronic back pain, scoliosis. She was discharged from the [facility] on 08/18/2020, her blood cultures were positive for MSSA, and echocardiogram revealed no vegetation. In the emergency department blood work showed BUN of 88, creatinine of 8.14, with potassium of 7.5 which was treated with insulin, 50% dextrose, calcium gluconate, nephrology has been consulted, troponin is negative, LFTs are within normal limits, urinalysis is significantly infected, urine culture has been sent, blood cultures have been sent, patient is anuric, she was given an amp of sodium bicarbonate, and she is on bicarbonate infusion at a rate of 70 ML per hour. Repeat blood work showed persistent hyperkalemia with potassium of 7.2, the plan is for another lab work, and nephrology is planning on vascular surgery consult for placement of temporary hemodialysis catheter and initiation of hemodialysis. Patient was reevaluated today on 09/03/20, patient was seen yesterday on consultation, and she was started on hemodialysis for hyperkalemia and acute kidney injury. Her kidney injury was felt to be secondary to antibiotics, and possibly secondary to her sepsis and bacteremia for which she was treated at [facility]. Patient was eventually discharged on antibiotics at home, and she developed hyperkalemia with acute kidney injury. I saw the patient yesterday, and I established central IV access, and a right radial arterial line was placed, she was also seen by vascular surgery and a dialysis catheter was placed patient received dialysis yesterday, and her potassium is down to 5.5 today. She is on Rocephin for presumptive urinary tract infection, she does have leukocytosis with WBC count of 22,000 today. Patient is requiring norepinephrine at 0.17 mcg/kg/m, and her mean arterial pressure is about 60 today. Patient is having episodes of dry heaves, but no vomiting. Patient was reevaluated today on 09/04/20, remains in the ICU, patient presented initially with hyperkalemia and acute kidney injury she was recently treated at [facility] for urinary tract infection and gram-negative bacteremia. Patient is now on hemodialysis, chest x-ray is showing worsening of the left lower lobe with some component of pulmonary edema and suspect underlying pneumonia. Patient has been on Rocephin, and she is being followed by infectious disease, may have to consider broadening the spectrum of her coverage, but patient had recent issues related to antibiotics and contributing to her acute kidney injury. Hence we'll let infectious disease decided on broadening the spectrum of antibiotics. In the meantime patient is being dialyzed, and she is followed by nephrology regarding her renal status. Patient is still complaining of intermittent episodes of dry heaves, minimal shortness of breath, no cough, no wheezing, no fever, no chills, no hemoptysis and no chest pain. Labs today showed improvement in her WBC count down to 14.7 hemoglobin is 7.3. Electrolytes are normal renal profile showed a BUN of 40 creatinine of 4.52. Findings on the chest x-ray are a bit concerning specially in the left lower lobe On 09/05/2020 patient seen in follow-up in the intensive care unit. Patient is awake and alert, oriented 3, is on 1 L of oxygen per nasal cannula, her pulse ox is 98%, hemodynamically patient is stable, she has been afebrile, she remains on antibiotics form of Zosyn, for recent history of urinary tract infection, blood and urine cultures from this admission have been negative, hemodynamically patient is stable, she is on point and was sitting at a rate of 20 ML per hour, no vasoactive drips. Today's hemoglobin is 6.6 with the no visible sign of bleeding, and patient will receive 1 unit of packed red blood cells, she is having hemodialysis today. Levothroid drip has been off since 4:00 this mo rning. She will receive her third hemodialysis treatment today. Nephrology is following. Today's labs have been reviewed, showing white blood cell count trending down, 9.5 on today's labs. Hemoglobin is 6.6 for which the patient is receiving a unit of blood, sodium is 131, the rest review a lites were within normal limits, BUN is 45 creatinine is 5.18. Tolerating oral intake, no nausea vomiting, her colostomy is producing liquid colored brown stool. On 09/06/2020 patient seen in follow-up in the intensive care unit, her levo fed has been weaned off since 3:30 this morning, she remains on 0.9 normal saline at rate of 30 ML per hour. Denies any difficulty breathing, she is currently on room air, with a pulse ox of 99%, blood pressure stable, patient is in sinus mechanism with a rate of 91 BPM. Yesterday she had a hemodialysis treatment would removal of 2.5 L still has significant edema involving her bilateral lower extremities, and edema involving right arm greater than left arm, sounds reveal some basilar crackles, no significant wheezing, or rhonchi, no cough. Abdomen is soft, no nausea or vomiting, patient is tolerating oral intake, no significant diarrhea out of the colostomy. She remains on antibiotics, in the form of Zosyn, and all of her cultures including urine culture and blood cultures remain negative during this admission. ID service is following, patient has been afebrile, no altered mentation. On 09/07/2020 patient seen in follow-up in the intensive care unit, she's been stable overnight, no acute events, she is sitting up in bed, she is oriented 3, no altered mentation, no confusion, no difficulty breathing, she is on room air pulse ox of 96%, she is on 0.9 normal saline at a rate of 30 ML per hour. She had hemodialysis yesterday with removal of 2.5 L and fluid, fluid volume status is improving, still has edema in lower extremities and upper extremities, which is improving, lung sounds diminished at the bases, with a few crackles, no respiratory distress. Blood and urine cultures have shown no growth thus far. She is on Zosyn for antibiotic coverage, ID service is following, she is on oral Lasix, nephrology is following, tolerating oral intake, she's had no nausea vomiting or diarrhea. On 09/08/2020 patient seen in follow-up in intensive care unit, she is awake and alert, oriented times, in no acute distress, breathing comfortably, room air pulse ox is 97-100%, hemodynamically patient is stable, no vasoactive drips, 0.9 normal saline at a rate of 20 ML per hour, she's been afebrile, his been an overflow for general medical surgical floor. Blood cultures and cultures have been negative this admission. Patient remains on Zosyn for antibiotic coverage. Last dialysis treatment yesterday to be stopped early because of the low blood pressure and heart rate, which patient recovered, today's vital signs are stable, no hypotension, no tachycardia, nephrology is on, and oriented midodrine 10 mg 3 times a day as needed for hypotension. Patient is she is having some diarrhea liquid output from the ostomy, we'll send it for C. diff. Also she has passed some mucus per her rectum yesterday. Abdomen is soft, nontender, no blood in the stool. Today hemoglobin is 10.2 Objective - Vital Signs Vital signs: Vital Signs Temp 97.6 F 09/08/20 03:40 Pulse 89 09/08/20 03:40 Resp 14 09/08/20 03:40 BP 124/62 09/08/20 03:40 Pulse Ox 97 09/08/20 03:40 Intake & Output 09/07/20 09/08/20 09/08/20 18:59 06:59 18:59 Intake Total 750 300 Output Total 760 125 Balance -10 175 Intake: IV 200 300 .09 20 Piperacillin-Tazobactam 3 100 .375 gm In Sodium Chloride 0.9% 100 ml @ 25 mls/hr IVPB Q12HR [facility] Rx #:[id number] Sodium Chloride 0.9% 500 80 300 ml 500 ml @ 20 mls/hr IV .Q24H [facility] Rx#:[id number] Oral 550 Output: Urine 0 0 Stool 125 Hemodialysis 760 Other: Voiding Method Indwelling Catheter ABP, PAP, CO, CI - Last Documented Arterial Blood Pressure 164/64 - Exam GENERAL EXAM: Alert, very pleasant, frail-looking 79-year-old white female, on room air with the pulse ox of 96-97%, resting in bed, complaining of mild itchiness, from the rash which has significantly improved over the weekend, hardly any redness left, comfortable in no apparent distress. HEAD: Normocephalic/atraumatic. EYES: Normal reaction of pupils, equal size. Conjunctiva pink, sclera white. NOSE: Clear with pink turbinates. THROAT: No erythema or exudates. NECK: No masses, no JVD, no thyroid enlargement, no adenopathy. CHEST: No chest wall deformity. Symmetrical expansion. LUNGS: Equal air entry with no crackles, wheeze, rhonchi or dullness. CVS: Regular rate and rhythm, normal S1 and S2, no gallops, no murmurs, no rubs ABDOMEN: Soft, nontender. No hepatosplenomegaly, normal bowel sounds, no guarding or rigidity. EXTREMITIES: No clubbing, 1+ lower extremity edema, no cyanosis, 2+ pulses and upper and lower extremities. Right arm swelling pitting, greater than the left arm MUSCULOSKELETAL: Muscle strength and tone normal. SPINE: No scoliosis or deformity SKIN: Generalized rash on the chest, trunk, back, arms and legs has significantly improved over the weekend, hardly any redness left, with just some isolated areas of macules, mild itchiness, which has also improved, and patient has stage II breakdown on her coccyx CENTRAL NERVOUS SYSTEM: Alert and oriented -3. No focal deficits, tone is no rmal in all 4 extremities. PSYCHIATRIC: Alert and oriented -3. Appropriate affect. Intact judgment and insight. - Labs CBC & Chem 7: 09/08/20 05:03 09/08/20 05:03 Labs: Abnormal Lab Results - Last 24 Hours (Table) 09/05/20 09/07/20 09/08/20 Range/Units 13:52 18:56 05:03 WBC 11.7 H 12.3 H (3.8-10.6) k/uL RBC 3.16 L 3.27 L (3.80-5.40) m/uL Hgb 10.0 L 10.2 L (11.4-16.0) gm/dL Hct 32.2 L (34.0-46.0) % MCV 102.1 H 104.4 H (80.0-100.0) fL MCHC 29.9 L (31.0-37.0) g/dL RDW 17.7 H 17.7 H (11.5-15.5) % Plt Count 48 L 56 L (150-450) k/uL Sodium (137-145) mmol/L Chloride (98-107) mmol/L Carbon Dioxide (22-30) mmol/L BUN (7-17) mg/dL Creatinine (0.52-1.04) mg/dL Calcium (8.4-10.2) mg/dL Total Protein (PEP) 5.2 L (6.2-8.2) g/dL 09/08/20 Range/Units 05:03 WBC (3.8-10.6) k/uL RBC (3.80-5.40) m/uL Hgb (11.4-16.0) gm/dL Hct (34.0-46.0) % MCV (80.0-100.0) fL MCHC (31.0-37.0) g/dL RDW (11.5-15.5) % Plt Count (150-450) k/uL Sodium 135 L (137-145) mmol/L Chloride 110 H (98-107) mmol/L Carbon Dioxide 18 L (22-30) mmol/L BUN 24 H (7-17) mg/dL Creatinine 3.96 H (0.52-1.04) mg/dL Calcium 7.9 L (8.4-10.2) mg/dL Total Protein (PEP) (6.2-8.2) g/dL Microbiology - Last 24 Hours (Table) 09/02/20 16:31 Blood Culture - Preliminary Blood No Growth after 120 hours 09/02/20 16:14 Blood Culture - Preliminary Blood No Growth after 120 hours Assessment and Plan Plan: Assessment: #1. Acute kidney injury related to possibility of ATN and acute hyperkalemia with the serum potassium level of 7.5, requiring initiation of hemodialysis, and on 09/07/2020 patient is status post 5 treatments with hemodialysis #2. Recent hospitalization for urinary tract infection with sepsis, MSSA bacteremia at the [facility], discharged home on 08/18/2020 with a midline access and IV antibiotics. Echocardiogram completed at [facility] showed no evidence of vegetation #3. Chronic kidney disease, baseline unknown #4. Acute urinary tract infection, currently on Zosyn #5. Multiple electrolyte abnormalities, including hypokalemia, hyponatremia related to acute kidney injury, dehydration #6. History of colon cancer in 2013, status post colostomy #7. Nonobstructing renal stones in the upper and mid left kidney and right renal cyst #8. Right pleural effusion #9. Previous history of urinary tract infections #10. Recent history of anemia requiring blood transfusion #11. Stage II decubitus ulcer on coccyx present on admission #12. Scoliosis #13. History of chronic low back pain #14. Protein calorie malnutrition #15. History of COPD with previous history of smoking Plan: Continue current medical treatment, antibiotics per ID service recommendations, vital signs have been stable, all cultures remain negative including urine and blood culture. Breathing comfortable, patient is on room air, blood pressure is stable, no tachycardia. Will send the stool for C. diff is a patient states she is having some loose output from her colostomy, no signs of any blood in the colostomy output. In the globin is stable, hemodynamically patient is stable, patient can go out of intensive care unit to general medical surgical floor without telemetry I performed a history & physical examination of the patient and discussed their management with my nurse practitioner, Amara Zelaya. I reviewed the nurse practitioner's note and agree with the documented findings and plan of care. Lung sounds are positive for diminished breath sounds. The findings and the impression was discussed with the patient. I attest to the documentation by the nurse practitioner. Time with Patient: Less than 30
[2020-09-08 10:39] VITALS: BMI 23.3
[2020-09-08] MEDS: SODIUM CHLORIDE 0.9% 500 ML 500 ML IV SCH (10:45)
[2020-09-08 14:04] LABS: Albumin 2.02 g/dL (3.80-4.90); Gamma Globulin 1.16 g/dL (0.70-1.50)
[2020-09-09] MEDS: CALAMINE/ZINC OXIDE LOTION 177 ML BTL TOPICAL PRN (06:40)
[2020-09-09] MEDS: PANTOPRAZOLE 40 MG TABLET PO SCH (06:40)
[2020-09-09] MEDS: MIDODRINE 5 MG TAB PO PRN (08:12)
--- NOTE | 2020-09-09 09:06 | P.PN ---
Subjective Patient is seen in follow-up for acute kidney injury, currently hemodialysis dependent. Remains anuric. Off vasopressors. Hemoglobin improved post blood transfusion on September 05. Currently undergoing hemodialysis. Blood pressure in the systolic 80s. She just received a dose of midodrine. Vital signs are stable. General: The patient appeared well nourished and normally developed. HEENT: Head exam is unremarkable. Neck is without jugular venous distension. LUNGS: Breath sounds decreased. HEART: Rate and Rhythm are regular. ABDOMEN: Soft, nontender. EXTREMITITES: 2+ edema. Objective - Vital Signs Vital signs: Vital Signs Temp 97.8 F 09/09/20 00:00 Pulse 87 09/09/20 00:00 Resp 15 09/09/20 00:00 BP 128/69 09/09/20 00:00 Pulse Ox 97 09/09/20 00:00 Intake & Output 09/08/20 09/09/20 09/09/20 18:59 06:59 18:59 Intake Total 390 100 Output Total 350 500 Balance 40 -400 Weight 65.6 kg Intake: IV 100 100 Piperacillin-Tazobactam 3 100 100 .375 gm In Sodium Chloride 0.9% 100 ml @ 25 mls/hr IVPB Q12HR [facility] Rx #:[id number] Oral 290 Output: Urine 0 Stool 300 500 Emesis 50 Other: # Bowel Movements 250 ABP, PAP, CO, CI - Last Documented Arterial Blood Pressure 164/64 - Labs CBC & Chem 7: 09/08/20 05:03 09/08/20 05:03 Labs: Abnormal Lab Results - Last 24 Hours (Table) 09/05/20 Range/Units 13:52 Albumin (PEP) 2.02 L (3.80-4.90) g/dL [id number] 0.52 H (0.10-0.40) g/dL [id number] 0.41 L (0.60-1.00) g/dL Microbiology - Last 24 Hours (Table) 09/02/20 16:31 Blood Culture - Final Blood No Growth after 144 hours 09/02/20 16:14 Blood Culture - Final Blood No Growth after 144 hours Assessment and Plan Plan: Assessment: 1. Acute kidney injury most likely due to ATN from sepsis and antibiotic. Rule out GN - noted to have positive [place] and low C3 and total complement levels. Currently hemodialysis dependent. Oliguric. Permacath placed September 06. No evidence of hydronephrosis. 2. Recent UTI and bacteremia. Cultures negative this admission. 3. Hyperkalemia secondary to acute kidney injury and GI losses and colostomy. 4. Metabolic acidosis secondary to acute kidney injury and ostomy drainage. Maintained on oral bicarb. Expect further improvement postdialysis. 5. Anemia of chronic kidney disease. Iron replete. Maintained on Aranesp. Status post blood transfusion September 05. 6. Volume overload. Improving with UF. Plan: Currently seen while undergoing hemodialysis. She will be maintained on Saturday schedule. Maintain Lasix 80 mg orally twice daily. news operations manager to help facilitate outpatient hemodialysis. Continue to monitor for renal recovery. Phosphorus normal. Maintain midodrine as needed for hypotension. Patient currently unstable for kidney biopsy. Will consider down the road.
--- NOTE | 2020-09-09 09:17 | P.PN ---
Subjective Progress Note Date: 09/09/20 Principal diagnosis: Acute kidney injury and hyperkalemia 79-year-old white female patient of Dr. Bojorquez from the [facility] who had a recent hospitalization 3 weeks ago at the [facility] for acute urinary tract infection and sepsis. Patient was released home with the left upper midline access for antibiotic infusions. Yesterday patient went to see her PCP for routine blood work which revealed significantly abnormal renal function, and hypokalemia and patient was directed to come to the emergency department for evaluation and treatment. Patient is complaining of being more short of breath, she has developed pressure ulcer on her coccyx stage II, which is causing her discomfort, she also has a diffuse papular rash all over her body, arms, torso, legs, which is itchy. She denied any chest pain, denied any cough, phlegm production. She has a colostomy in place for previous history of colon resection for colon cancer, he denies any nausea vomiting or diarrhea. She denies any headaches. Apparently patient has not been able to eat much. She has recently been anemic and has required blood transfusion. Her daughters at the bedside and providing much of the history although she is not sure of the details, she is not sure of the name of the antibiotic the patient was discharged home on, or whether or not patient had any diarrhea at home. Patient's past medical history includes COPD, previous history of smoking, hyperlipidemia, chronic kidney disease, previous history of urinary tract infections, moderate protein calorie malnutrition, colon cancer in 2014, chronic back pain, scoliosis. She was discharged from the [facility] on 08/18/2020, her blood cultures were positive for MSSA, and echocardiogram revealed no vegetation. In the emergency department blood work showed BUN of 88, creatinine of 8.14, with potassium of 7.5 which was treated with insulin, 50% dextrose, calcium gluconate, nephrology has been consulted, troponin is negative, LFTs are within normal limits, urinalysis is significantly infected, urine culture has been sent, blood cultures have been sent, patient is anuric, she was given an amp of sodium bicarbonate, and she is on bicarbonate infusion at a rate of 70 ML per hour. Repeat blood work showed persistent hyperkalemia with potassium of 7.2, the plan is for another lab work, and nephrology is planning on vascular surgery consult for placement of temporary hemodialysis catheter and initiation of hemodialysis. Patient was reevaluated today on 09/03/20, patient was seen yesterday on consultation, and she was started on hemodialysis for hyperkalemia and acute kidney injury. Her kidney injury was felt to be secondary to antibiotics, and possibly secondary to her sepsis and bacteremia for which she was treated at [facility]. Patient was eventually discharged on antibiotics at home, and she developed hyperkalemia with acute kidney injury. I saw the patient yesterday, and I established central IV access, and a right radial arterial line was placed, she was also seen by vascular surgery and a dialysis catheter was placed patient received dialysis yesterday, and her potassium is down to 5.5 today. She is on Rocephin for presumptive urinary tract infection, she does have leukocytosis with WBC count of 22,000 today. Patient is requiring norepinephrine at 0.17 mcg/kg/m, and her mean arterial pressure is about 60 today. Patient is having episodes of dry heaves, but no vomiting. Patient was reevaluated today on 09/04/20, remains in the ICU, patient presented initially with hyperkalemia and acute kidney injury she was recently treated at [facility] for urinary tract infection and gram-negative bacteremia. Patient is now on hemodialysis, chest x-ray is showing worsening of the left lower lobe with some component of pulmonary edema and suspect underlying pneumonia. Patient has been on Rocephin, and she is being followed by infectious disease, may have to consider broadening the spectrum of her coverage, but patient had recent issues related to antibiotics and contributing to her acute kidney injury. Hence we'll let infectious disease decided on broadening the spectrum of antibiotics. In the meantime patient is being dialyzed, and she is followed by nephrology regarding her renal status. Patient is still complaining of intermittent episodes of dry heaves, minimal shortness of breath, no cough, no wheezing, no fever, no chills, no hemoptysis and no chest pain. Labs today showed improvement in her WBC count down to 14.7 hemoglobin is 7.3. Electrolytes are normal renal profile showed a BUN of 40 creatinine of 4.52. Findings on the chest x-ray are a bit concerning specially in the left lower lobe On 09/05/2020 patient seen in follow-up in the intensive care unit. Patient is awake and alert, oriented 3, is on 1 L of oxygen per nasal cannula, her pulse ox is 98%, hemodynamically patient is stable, she has been afebrile, she remains on antibiotics form of Zosyn, for recent history of urinary tract infection, blood and urine cultures from this admission have been negative, hemodynamically patient is stable, she is on point and was sitting at a rate of 20 ML per hour, no vasoactive drips. Today's hemoglobin is 6.6 with the no visible sign of bleeding, and patient will receive 1 unit of packed red blood cells, she is having hemodialysis today. Levothroid drip has been off since 4:00 this mo rning. She will receive her third hemodialysis treatment today. Nephrology is following. Today's labs have been reviewed, showing white blood cell count trending down, 9.5 on today's labs. Hemoglobin is 6.6 for which the patient is receiving a unit of blood, sodium is 131, the rest review a lites were within normal limits, BUN is 45 creatinine is 5.18. Tolerating oral intake, no nausea vomiting, her colostomy is producing liquid colored brown stool. On 09/06/2020 patient seen in follow-up in the intensive care unit, her levo fed has been weaned off since 3:30 this morning, she remains on 0.9 normal saline at rate of 30 ML per hour. Denies any difficulty breathing, she is currently on room air, with a pulse ox of 99%, blood pressure stable, patient is in sinus mechanism with a rate of 91 BPM. Yesterday she had a hemodialysis treatment would removal of 2.5 L still has significant edema involving her bilateral lower extremities, and edema involving right arm greater than left arm, sounds reveal some basilar crackles, no significant wheezing, or rhonchi, no cough. Abdomen is soft, no nausea or vomiting, patient is tolerating oral intake, no significant diarrhea out of the colostomy. She remains on antibiotics, in the form of Zosyn, and all of her cultures including urine culture and blood cultures remain negative during this admission. ID service is following, patient has been afebrile, no altered mentation. On 09/07/2020 patient seen in follow-up in the intensive care unit, she's been stable overnight, no acute events, she is sitting up in bed, she is oriented 3, no altered mentation, no confusion, no difficulty breathing, she is on room air pulse ox of 96%, she is on 0.9 normal saline at a rate of 30 ML per hour. She had hemodialysis yesterday with removal of 2.5 L and fluid, fluid volume status is improving, still has edema in lower extremities and upper extremities, which is improving, lung sounds diminished at the bases, with a few crackles, no respiratory distress. Blood and urine cultures have shown no growth thus far. She is on Zosyn for antibiotic coverage, ID service is following, she is on oral Lasix, nephrology is following, tolerating oral intake, she's had no nausea vomiting or diarrhea. On 09/08/2020 patient seen in follow-up in intensive care unit, she is awake and alert, oriented times, in no acute distress, breathing comfortably, room air pulse ox is 97-100%, hemodynamically patient is stable, no vasoactive drips, 0.9 normal saline at a rate of 20 ML per hour, she's been afebrile, his been an overflow for general medical surgical floor. Blood cultures and cultures have been negative this admission. Patient remains on Zosyn for antibiotic coverage. Last dialysis treatment yesterday to be stopped early because of the low blood pressure and heart rate, which patient recovered, today's vital signs are stable, no hypotension, no tachycardia, nephrology is on, and oriented midodrine 10 mg 3 times a day as needed for hypotension. Patient is she is having some diarrhea liquid output from the ostomy, we'll send it for C. diff. Also she has passed some mucus per her rectum yesterday. Abdomen is soft, nontender, no blood in the stool. Today hemoglobin is 10.2 On 09/09/2020 patient seen in intensive care unit. She is awake and alert, oriented 3, she's having hemodialysis treatment done today, with a goal of r emoval of one to one and a half liters of fluid. Patient is slightly tachycardic with a rate of 110-120, last time her hemodialysis treatment had to be cut short because of hypotension and tachycardia. Blood pressures currently stable, no breathing difficulty, room air pulse ox is 97%, patient is afebrile. Lung sounds are clear, diminished at the bases. Patient states she still having some loose stools, her C. diff was negative. He has passed some mucus per rectum. No blood in the stools, she is tolerating oral intake, no nausea or vomiting, she states at times she'll have some cramping, but no abdominal tenderness, abdomen is soft. No labs today, no new chest x-rays. Patient has been afebrile, hemodynamically she's been stable. Ulcers remain negative, including urine and blood cultures. Patient remains on Zosyn for antibiotic coverage. Objective - Vital Signs Vital signs: Vital Signs Temp 97.8 F 09/09/20 00:00 Pulse 87 09/09/20 00:00 Resp 15 09/09/20 00:00 BP 128/69 09/09/20 00:00 Pulse Ox 97 09/09/20 00:00 Intake & Output 09/08/20 09/09/20 09/09/20 18:59 06:59 18:59 Intake Total 390 100 Output Total 350 500 Balance 40 -400 Weight 65.6 kg Intake: IV 100 100 Piperacillin-Tazobactam 3 100 100 .375 gm In Sodium Chloride 0.9% 100 ml @ 25 mls/hr IVPB Q12HR [facility] Rx #:[id number] Oral 290 Output: Urine 0 Stool 300 500 Emesis 50 Other: # Bowel Movements 250 ABP, PAP, CO, CI - Last Documented Arterial Blood Pressure 164/64 - Exam GENERAL EXAM: Alert, very pleasant, frail-looking 79-year-old white female, on room air with the pulse ox of 96-97%, resting in bed, complaining of mild itchiness, from the rash which has significantly improved over the weekend, hardly any redness left, comfortable in no apparent distress. HEAD: Normocephalic/atraumatic. EYES: Normal reaction of pupils, equal size. Conjunctiva pink, sclera white. NOSE: Clear with pink turbinates. THROAT: No erythema or exudates. NECK: No masses, no JVD, no thyroid enlargement, no adenopathy. CHEST: No chest wall deformity. Symmetrical expansion. LUNGS: Equal air entry with no crackles, wheeze, rhonchi or dullness. CVS: Regular rate and rhythm, normal S1 and S2, no gallops, no murmurs, no rubs ABDOMEN: Soft, nontender. No hepatosplenomegaly, normal bowel sounds, no guarding or rigidity. EXTREMITIES: No clubbing, 1+ lower extremity edema, no cyanosis, 2+ pulses and upper and lower extremities. Right arm swelling pitting, greater than the left arm MUSCULOSKELETAL: Muscle strength and tone normal. SPINE: No scoliosis or deformity SKIN: Generalized rash on the chest, trunk, back, arms and legs has significantly improved over the weekend, hardly any redness left, with just some isolated areas of macules, mild itchiness, which has also improved, and patient has stage II breakdown on her coccyx CENTRAL NERVOUS SYSTEM: Alert and oriented -3. No focal deficits, tone is normal in all 4 extremities. PSYCHIATRIC: Alert and oriented -3. Appropriate affect. Intact judgment and insight. - Labs CBC & Chem 7: 09/08/20 05:03 09/08/20 05:03 Labs: Abnormal Lab Results - Last 24 Hours (Table) 09/05/20 Range/Units 13:52 Albumin (PEP) 2.02 L (3.80-4.90) g/dL Kwfxg-0-Vmscymdnx 0.52 H (0.10-0.40) g/dL Xbamg-0-Wmflnxrha 0.41 L (0.60-1.00) g/dL Microbiology - Last 24 Hours (Table) 09/02/20 16:31 Blood Culture - Final Blood No Growth after 144 hours 09/02/20 16:14 Blood Culture - Final Blood No Growth after 144 hours Assessment and Plan Plan: Assessment: #1. Acute kidney injury related to possibility of ATN and acute hyperkalemia with the serum potassium level of 7.5, requiring initiation of hemodialysis, and on 09/07/2020 patient is status post 5 treatments with hemodialysis #2. Recent hospitalization for urinary tract infection with sepsis, MSSA bacteremia at the [facility], discharged home on 08/18/2020 with a midline access and IV antibiotics. Echocardiogram completed at [facility] showed no evidence of vegetation #3. Chronic kidney disease, baseline unknown #4. Acute urinary tract infection, currently on Zosyn #5. Multiple electrolyte abnormalities, including hypokalemia, hyponatremia related to acute kidney injury, dehydration #6. History of colon cancer in 2014, status post colostomy #7. Nonobstructing renal stones in the upper and mid left kidney and right renal cyst #8. Right pleural effusion #9. Previous history of urinary tract infections #10. Recent history of anemia requiring blood transfusion #11. Stage II decubitus ulcer on coccyx present on admission #12. Scoliosis #13. History of chronic low back pain #14. Protein calorie malnutrition #15. History of COPD with previous history of smoking #16. Diarrhea, C. diff ruled out Plan: Continue current medical treatment, vital signs have been stable, no fever or chills, patient continues on Zosyn, urine and blood cultures have been negative, patient is having hemodialysis treatment today. No new labs today, no new chest x-ray, increase activity as tolerated, consult physical therapy. C. diff was negative, patient has received 8 days of IV antibiotics, all culture data has been negative, vital signs have been stable, we'll stop the Zosyn. From pulmonary/critical care perspective patient could probably considered for disc harge home or subacute rehab, patient is generally weak, we're told the daughter is insisting on taking the patient home instead of placing in rehab. Discharge planning is following. Stable to go out of intensive care unit to general medical floor without telemetry. I performed a history & physical examination of the patient and discussed their management with my nurse practitioner, Amara Zelaya. I reviewed the nurse practitioner's note and agree with the documented findings and plan of care. Lung sounds are positive for diminished breath sounds. The findings and the impression was discussed with the patient. I attest to the documentation by the nurse practitioner. Time with Patient: Less than 30
[2020-09-09 09:49] VITALS: RESP 20
--- NOTE | 2020-09-09 10:14 | P.PN ---
Subjective 79-year-old female with a past medical history significant for a recent urinary tract infection which caused her sepsis some [facility]. Patient started antibiotics in the hospital after 9 days was released home with the midline access for more antibiotics. Patient also has been told she has kidney failure and so she has had increased swelling in her legs and decided to come the emergency department. Patient complains that she's feeling a little more short of breath. Patient denies any fever chills per patient denies chest pain or palpitations. Patient found to have acute kidney injury, needing hemodialysis. So she has sepsis and infectious disease on the case, currently she is on Zosyn. Colostomy is functioning from her previous surgery for colon cancer. She has bilateral pleural effusion, and pulmonary team considering thoracocentesis however chest ultrasound showing fluid pockets of 2-4 cm on either side. Labs showing mild leukocytosis with WBC 10.7 K, and anemia with 9.4 and low platelets are 60 7K. INR is not elevated. She is followed by several consult was obtained and pulmonary, infectious disease and nephrology services 09/06/2020 Patient is fully awake and oriented in the ICU. She needed short period of pressors last night however her blood pressure is more stable now on pressors. She complains only from her low back sore from her pressure ulcer, pain with movement only Patient is currently on clear liquid diet and we will advance him to follow liquid diet Patient underwent dialysis catheter placement today Patient can contact the general medical floor per ICU team 09/07/2020 Patient fully awake and resting comfortably in bed. No specific complaints Hemodynamically stable. She had slight drop the blood pressure overnight. Patient is placed on midodrine when necessary for hypertension labs reviewed and looks stable generally except slight increase of W2 to 11.2 and slight decrease in platelet to 48K She remains on Zosyn for complicated UTI, Patient is stable to be transferred out of the ICU, with no change in her clinical status for compared to yesterday Patient will benefit from an ECF for subacute rehab, social service agency director consult 09/08/2020 Patient is fully awake and oriented, she is clinically stable and normal change from yesterday No new complaints and she is tolerating diet well no abdominal pain colostomy bag is working with liquid fluid and C. diff this was been sent, there was some mucous discharge per rectum however abdominal exam is completely benign no nausea vomiting Patient got 5 hemodialysis route so far, yesterday he has to be aborted earlier because of low blood pressure, medial drain was been added, resume hemodialysis tomorrow per nephrology recommendations She's select overflow to go to medical floor Objective - Vital Signs Vital signs: Vital Signs Temp 98.4 F 09/08/20 16:00 Pulse 93 09/08/20 16:00 Resp 16 09/08/20 16:00 BP 130/77 09/08/20 16:00 Pulse Ox 97 09/08/20 16:00 Intake & Output 09/07/20 09/08/20 09/08/20 18:59 06:59 18:59 Intake Total 750 300 390 Output Total 760 125 350 Balance -10 175 40 Weight 65.6 kg Intake: IV 200 300 100 .09 20 Piperacillin-Tazobactam 3 100 100 .375 gm In Sodium Chloride 0.9% 100 ml @ 25 mls/hr IVPB Q12HR [facility] Rx #:[id number] Sodium Chloride 0.9% 500 80 300 ml 500 ml @ 20 mls/hr IV .Q24H [facility] Rx#:[id number] Oral 550 290 Output: Urine 0 0 Stool 125 300 Emesis 50 Hemodialysis 760 Other: Voiding Method Indwelling Catheter # Bowel Movements 250 ABP, PAP, CO, CI - Last Documented Arterial Blood Pressure 164/64 - Exam GENERAL: The patient is alert and oriented x2-3, not in any acute distress. HEENT: Pupils are round and equally reacting to light. EOMI. No scleral icterus. No conjunctival pallor. Normocephalic, atraumatic. No pharyngeal erythema. No thyromegaly. CARDIOVASCULAR: S1 and S2 present. No murmurs, rubs, or gallops. PULMONARY: Chest is clear to auscultation, no wheezing or crackles. ABDOMEN: Soft, nontender, nondistended, normoactive bowel sounds. No palpable organomegaly. MUSCULOSKELETAL: No joint swelling or deformity. EXTREMITIES: No cyanosis, clubbing, or pedal edema. NEUROLOGICAL: Gross neurological examination did not reveal any focal deficits. -SKIN: Mild trunk rashes. no petechiae. Stage II coccygeal pressure ulcer, - Labs CBC & Chem 7: 09/08/20 05:03 09/08/20 05:03 Labs: Abnormal Lab Results - Last 24 Hours (Table) 09/05/20 09/07/2020 Range/Units 13:52 18:56 05:03 WBC 11.7 H 12.3 H (3.8-10.6) k/uL RBC 3.16 L 3.27 L (3.80-5.40) m/uL Hgb 10.0 L 10.2 L (11.4-16.0) gm/dL Hct 32.2 L (34.0-46.0) % MCV 102.1 H 104.4 H (80.0-100.0) fL MCHC 29.9 L (31.0-37.0) g/dL RDW 17.7 H 17.7 H (11.5-15.5) % Plt Count 48 L 56 L (150-450) k/uL Sodium (137-145) mmol/L Chloride (98-107) mmol/L Carbon Dioxide (22-30) mmol/L BUN (7-17) mg/dL Creatinine (0.52-1.04) mg/dL Calcium (8.4-10.2) mg/dL Albumin (PEP) 2.02 L (3.80-4.90) g/dL Aafuo-5-Rtgpwhier 0.52 H (0.10-0.40) g/dL Bcuta-9-Okhurlymd 0.41 L (0.60-1.00) g/dL 09/08/20 Range/Units 05:03 WBC (3.8-10.6) k/uL RBC (3.80-5.40) m/uL Hgb (11.4-16.0) gm/dL Hct (34.0-46.0) % MCV (80.0-100.0) fL MCHC (31.0-37.0) g/dL RDW (11.5-15.5) % Plt Count (150-450) k/uL Sodium 135 L (137-145) mmol/L Chloride 110 H (98-107) mmol/L Carbon Dioxide 18 L (22-30) mmol/L BUN 24 H (7-17) mg/dL Creatinine 3.96 H (0.52-1.04) mg/dL Calcium 7.9 L (8.4-10.2) mg/dL Albumin (PEP) (3.80-4.90) g/dL Doblb-6-Knrigednk (0.10-0.40) g/dL Ffduz-8-Zaqgsxqyb (0.60-1.00) g/dL Microbiology - Last 24 Hours (Table) 09/02/20 16:31 Blood Culture - Preliminary Blood No Growth after 120 hours 09/02/20 16:14 Blood Culture - Preliminary Blood No Growth after 120 hours Assessment and Plan Assessment: Oliguric acute kidney injury, status post hemodialysis Sepsis secondary to the recent UTI Stage II coccygeal pressure ulcer History of colon cancer status post colostomy Bilateral pleural effusion Plan: This is a pleasant 79 years old female who presents with acute renal failure, continue with hemodialysis as per nephrology service. Antibiotics with infectious disease on the case. Also follow-up recommendation by pulmonary/critical care team Labs and medication were reviewed.. Continue same treatment. Continue with symptomatic treatment. Resume home medication. Monitor lytes and vitals. DVT and GI prophylaxis. Further recommendationsas per clinical course of the patient DVT prophylaxis: Subcutaneous heparin GI Prophylaxis: Ppi PT/OT: BISHNU Prognosis is guarded
[2020-09-09] MEDS: SODIUM BICARBONATE TAB 650 MG TAB PO SCH (10:50)
[2020-09-09] MEDS: HEPARIN SODIUM,PORCINE 5,000 UNIT/ML 1 ML VIAL SQ SCH (10:50)
[2020-09-09] MEDS: FUROSEMIDE 80 MG TAB PO SCH ×2 (10:50→16:02)
[2020-09-09 13:49] LABS: ANA Pattern Speckled
[2020-09-09 16:26] VITALS: BP 122/71; PULSE 96; TEMP 98.4
--- NOTE | 2020-09-09 16:57 | DS ---
DISCHARGE SUMMARY DATE OF SERVICE: 09/09/2020 FINAL DIAGNOSES: 1. Acute oliguric kidney injury, status post hemodialysis. 2. Sepsis secondary to recent urinary tract infection. 3. Stage II coccygeal pressure ulcer. 4. Gait dysfunction. 5. History of colon cancer, status post colostomy. 6. Bilateral pleural effusion. DISCHARGE DISPOSITION: The patient will be discharged in stable condition with guarded prognosis. TOTAL TIME TAKEN: 35 minutes. HISTORY OF PRESENT ILLNESS: This is an 79-year-old woman with a past medical history of multiple medical problems was admitted with multiple medical problems as mentioned earlier. Patient improved with symptomatic treatment, dialysis continued. Otherwise creatinine 3.96. WBC 12.3, hemoglobin 10.2. [facility] consultants saw the patient during the hospital stay. Patient monitored in ICU. Please refer to the multiple consultations progress note for further information. On exam, vitals stable. CARDIOVASCULAR: S1, S2. ABDOMEN: Soft. NERVOUS SYSTEM: Minimal weakness. At this time, the patient's family would like to return home. I recommend the patient to follow up with primary physician, if the patient is not improving with home PT, OT and consider ECF rehab at this time. Once again, stable. Overall prognosis guarded. DISCHARGE INSTRUCTIONS: 1. Diet is cardiac diet. 2. Activity limited until followup. 3. Follow up with the primary physician Dr. Bojorquez in 1-2 days. 4. Follow up with hemodialysis as mentioned earlier. MEDICATIONS: Are as follows: 1. Colace 100 mg p.o. b.i.d. 2. Iron sulfate 325 mg p.o. daily. 3. Lexapro 10 mg daily. 4. Solu-Medrol Dosepak. 5. Hydrocodone 1 tablet q.4 p.r.n. 6. Calcium 820 mg. 7. .Multivitamins 1 p.o. daily. 8. Zofran 4 mg q.8 p.r.n. 9. Ancef 40 mg subcu q.7. 10.Lasix 80 mg p.o. b.i.d. 11.Midodrine for 10 mg a.c. t.i.d. 12.Sodium bicarb 650 mg p.o. b.i.d. Follow up with Nephrology as recommended. MMODL / IJN: [id number] /
--- NOTE | 2020-09-13 06:20 | CDI ---
Documentation Clarification Form Date: 09/13/20 From: Amy Robles Phone: If you have a question about this query, please contact Em Bosch, Meter Reader Chief at [phone] between 8am and 5pm. Admit Date: 09/02/20 Discharge Date: 09/09/20 Patient Name: JAVAD MCINTOSH Visit Number: [id number] ATTENTION: The Clinical Documentation Specialists (CDI) and [facility] Coding Staff appreciate your assistance in clarifying documentation. Please respond to the clarification below the line at the bottom and electronically sign. The CDI & [facility] Coding staff will review the response and follow-up if needed. Please note: Queries are made part of the Legal Health Record. If you have any questions, please contact the author of this message via ITS. Dear Dr. Reva Hutson, Conflicting documentation has been found in the medical record: Per H&P the patient with a past medical history significant for a recent urinary tract infection which caused her sepsis. She was sent home with midline cath on antibiotics. PN 09/[address] Boswell she has sepsis and infectious disease on the case, currently she is on Zosyn. History/Risk Factors: ATN, COPD in exacerbation with pneumonia, mod PCM, acidosis, pleural effusion, hyponatremia, UTI, anemia in CKD, pressure ohlgj-[id number]-[id number] 2, HTN, colostomy Clinical Indicators: WBC: 09/02-8.7, 09/03-22.6 Neutrophils: 09/02-7.3, 09/03-19.5 Plasma lactic acid: 0.9 Urine: turbid, protein 3+, blood large, leukocyte esterase large, RBC 175, WBC 121, bacteria few Urine culture: 10,000-49,000 CFU/ml apparent skin and/or genital olya Vital signs on admission: T-98; P-88; R-18, 33; BP-125/27, 113/60; O2 Sat: 99 (NC) BP 09/02 @ 5-95/38, 09/03 @ 1999-/41; 09/04-/43, 09/06-97/47, 96/47; 09/07-91/47; 09/09-93/58, 99/68, 96/56, 98/54 Treatment: IV Dilaudid, IV Sodium Bicarb, IV Insulin, IV Calcium gluconate, IV Rocephin, IV Levophed on 09/04 changed to IV Zoysn In your opinion, what is the most clinically appropriate diagnosis for this patient? Sepsis is acute, under treatment and present on admission (specify bacteria if possible) Sepsis is acute, under treatment but not present on admission (specify bacteria if possible) Sepsis is history of and no longer under treatment Other explanation of clinical findings Unable to determine (no explanation for clinical findings) Sepsis is acute, under treatment and present on admission MTDD
--- NOTE | 2020-09-13 06:28 | CDI ---
Documentation Clarification Form Date: 09/13/20 From: Amy Robles Phone: If you have a question about this query, please contact Em Bosch, Protection Agent at [phone] between 8am and 5pm. Admit Date: 09/02/20 Discharge Date: 09/09/20 Patient Name: JAVAD MCINTOSH Visit Number: [id number] ATTENTION: The Clinical Documentation Specialists (CDI) and [facility] Coding Staff appreciate your assistance in clarifying documentation. Please respond to the clarification below the line at the bottom and electronically sign. The CDI & [facility] Coding staff will review the response and follow-up if needed. Please note: Queries are made part of the Legal Health Record. If you have any questions, please contact the author of this message via ITS. Dear Dr. Reva Hutson, Documentation states: Patient came in with urinary infection and with the acute chronic failure with high potassium and low magnesium. History/Risk Factors: ATN, COPD in exacerbation with pneumonia, mod PCM, acidosis, pleural effusion, hyponatremia, UTI, anemia in CKD, pressure iqowt-[id number]-hkjcj 2, HTN, colostomy Abnormal: Magnesium: 09/02-1.3; 09/03-1.8 Treatment: Magnesium Sulfate-D5w Pmx 1 gm Dextrose/Water [Premix 100 ml] 100 ml bag IVPB once Clinical significance of diagnostic testing and treatment CANNOT be assumed or coded without physician documentation of significance if any. Please clarify what abnormal laboratory signifies: Hypomagnesemia Abnormal Lab Value Unable to determine Other, please specify Hypomagnesemia MTDD
== END 2020-09-09 16:27 | disposition home health service (06) | DRG 871 ==
LOC: EC 07:48 → 3SCARD 09:22 → 2SICU 13:03
PROVIDERS: ADMIT Internal Medicine; ATTEND Internal Medicine
PROC: 06HY33Z Insertion of Infusion Device into Lower Vein, Percutaneous Approach (ICD-10-PCS; principal; 2020-09-02)
PROC: 5A1D70Z Performance of Urinary Filtration, Intermittent, Less than 6 Hours Per Day (ICD-10-PCS; 2020-09-02)
PROC: 03HY32Z Insertion of Monitoring Device into Upper Artery, Percutaneous Approach (ICD-10-PCS; 2020-09-02)
PROC: 4A133B1 Monitoring of Arterial Pressure, Peripheral, Percutaneous Approach (ICD-10-PCS; 2020-09-02)
PROC: 4A133J1 Monitoring of Arterial Pulse, Peripheral, Percutaneous Approach (ICD-10-PCS; 2020-09-02)
PROC: 06HM33Z Insertion of Infusion Device into Right Femoral Vein, Percutaneous Approach (ICD-10-PCS; 2020-09-02)
PROC: 3E033XZ Introduction of Vasopressor into Peripheral Vein, Percutaneous Approach (ICD-10-PCS; 2020-09-02)
PROC: 30240N1 Transfusion of Nonautologous Red Blood Cells into Central Vein, Open Approach (ICD-10-PCS; 2020-09-05)
PROC: 06PYX3Z Removal of Infusion Device from Lower Vein, External Approach (ICD-10-PCS; 2020-09-06)
PROC: 02HV33Z Insertion of Infusion Device into Superior Vena Cava, Percutaneous Approach (ICD-10-PCS; 2020-09-06)
DX: A41.50 Gram-negative sepsis, unspecified (principal); N17.0 Acute kidney failure with tubular necrosis; J18.9 Pneumonia, unspecified organism; E44.0 Moderate protein-calorie malnutrition; E87.2 Acidosis; J90 Pleural effusion, not elsewhere classified; E87.1 Hypo-osmolality and hyponatremia; J44.0 Chronic obstructive pulmonary disease with (acute) lower respiratory infection; J98.11 Atelectasis; N39.0 Urinary tract infection, site not specified; D63.1 Anemia in chronic kidney disease; L89.152 Pressure ulcer of sacral region, stage 2; D69.6 Thrombocytopenia, unspecified; R54 Age-related physical debility; I95.9 Hypotension, unspecified; Z93.3 Colostomy status; Z20.828 Contact with and (suspected) exposure to other viral communicable diseases; E87.5 Hyperkalemia; E86.0 Dehydration; I12.9 Hypertensive chronic kidney disease with stage 1 through stage 4 chronic kidney disease, or unspecified chronic kidney disease; N18.9 Chronic kidney disease, unspecified; E87.70 Fluid overload, unspecified; Z68.21 Body mass index [BMI] 21.0-21.9, adult; N20.0 Calculus of kidney; N28.1 Cyst of kidney, acquired; E78.5 Hyperlipidemia, unspecified; F32.9 Major depressive disorder, single episode, unspecified; G89.29 Other chronic pain; M54.5 Low back pain; M41.9 Scoliosis, unspecified; R19.7 Diarrhea, unspecified; R26.9 Unspecified abnormalities of gait and mobility; R80.9 Proteinuria, unspecified; R76.8 Other specified abnormal immunological findings in serum; Z53.20 Procedure and treatment not carried out because of patient's decision for unspecified reasons; Z79.899 Other long term (current) drug therapy; Z87.891 Personal history of nicotine dependence; Z85.038 Personal history of other malignant neoplasm of large intestine; Z90.49 Acquired absence of other specified parts of digestive tract; Z87.01 Personal history of pneumonia (recurrent); Z85.828 Personal history of other malignant neoplasm of skin; Z87.440 Personal history of urinary (tract) infections; Z86.19 Personal history of other infectious and parasitic diseases; Z90.89 Acquired absence of other organs; Z98.890 Other specified postprocedural states; Z91.040 Latex allergy status; Z80.41 Family history of malignant neoplasm of ovary; Z83.79 Family history of other diseases of the digestive system; R65.20 Severe sepsis without septic shock
CPT/HCPCS: 36415; 36558; 71045; 71046; 76604; 76770; 76937; 77001; 80048; 80053; 80074; 81001; 83540; 83550; 83605; 83735; 84100; 84132; 84165; 84484; 85025; 85027; 85610; 85730; 86038; 86039; 86160; 86162; 86225; 86255; 86334; 86706; 86850; 86900; 86901; 86920; 87040; 87086; 87324; 87340; 90935; 93005; 96374; 96375; 96376; 99291

== ENCOUNTER 2020-09-30 13:05 | Emergency (ER) | payer MEDICARE, BC ==
[2020-09-30 13:28] VITALS: BP 97/57; PULSE 85; RESP 16; TEMP 97.9
--- NOTE | 2020-09-30 13:55 | ED ---
General Adult HPI - General Chief complaint: Recheck/Abnormal Lab/Rx Stated complaint: Clogged port, +covid Time Seen by Provider: 09/30/20 13:33 Source: patient, RN notes reviewed Mode of arrival: wheelchair Limitations: no limitations - History of Present Illness Initial comments: patient is a pleasant 80-year-old female presenting to the emergency department for problems with her dialysis port. Patient is a very poor historian. Patient believes this was placed a few weeks ago and has had dialysis several times. Patient states yesterday when she went for dialysis they were unable to use it. They did try to put medication and it without success. Patient has no complaints otherwise. Patient reportedly was recently diagnosed: Positive howev er denies any symptoms. - Related Data Home Medications Medication Instructions Recorded Confirmed Docusate [Colace] 100 mg PO BID PRN 09/02/20 09/02/20 Escitalopram [Lexapro] 10 mg PO DAILY 09/02/20 09/02/20 Ferrous Sulfate [Feosol] 325 mg PO DAILY 09/02/20 09/02/20 Hydrocodone/Acetaminophen [Pep 1 tab PO Q4HR PRN 09/02/20 09/02/20 7.5-325] Ondansetron [Zofran ODT] 4 mg PO Q8HR PRN 09/02/20 09/02/20 Rosuvastatin Calcium 20 mg PO DAILY 09/02/20 09/02/20 Spectravite Womens' Tablet 1 tab PO DAILY 09/02/20 09/02/20 Uromag 140 mg PO BID 09/02/20 09/02/20 methylPREDNISolone Dose Pack See Taper PO DIRECTED 09/02/20 09/02/20 [Medrol Dose Pack] Previous Rx's Medication Instructions Recorded Darbepoetin Darrion [Aranesp] 40 mcg SQ Q7D syringe 09/09/20 Furosemide [Lasix] 80 mg PO BID@0900,1600 #60 tab 09/09/20 Midodrine [ProAmatine] 10 mg PO AC-TID PRN #90 tab 09/09/20 Sodium Bicarbonate Tab 650 mg PO BID #60 tab 09/09/20 Allergies Allergy/AdvReac Type Severity Reaction Status Date / Time latex Allergy Rash/Hives Verified 09/30/20 13:28 Review of Systems ROS Statement: Those systems with pertinent positive or pertinent negative responses have been documented in the HPI. ROS Other: All systems not noted in ROS Statement are negative. Constitutional: Denies: fever, chills Eyes: Denies: eye pain ENT: Denies: ear pain Respiratory: Denies: cough, dyspnea Cardiovascular: Denies: chest pain Endocrine: Denies: fatigue Gastrointestinal: Denies: abdominal pain Genitourinary: Denies: dysuria Musculoskeletal: Denies: back pain Skin: Denies: rash Neurological: Denies: weakness Past Medical History Past Medical History: Cancer, COPD, Hyperlipidemia, Pneumonia, Renal Disease Additional Past Medical History / Comment(s): Recent UTI with sepsis/h ospitalized 9 days/has midline for home antibiotics, chronic kidney disease, past UTIs, anemia/recently received transfusion, 2014 colon cancer/has colostomy, skin cancer with removals, chronic low back pain and delfin states 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 History of Any Multi-Drug Resistant Organisms: None Reported Past Surgical History: Bowel Resection, Tonsillectomy Additional Past Surgical History / Comment(s): Colectomy/colostomy, colonoscopies, midline to L arm, skin cancers removed from face. Past Anesthesia/Blood Transfusion Reactions: No Reported Reaction Additional Past Anesthesia/Blood Transfusion Reaction / Comment(s): Pt recently received blood without reaction. Past Psychological History: Depression Smoking Status: Never smoker Past Alcohol Use History: None Reported Past Drug Use History: None Reported - Past Family History Mother Family Medical History: Cancer Additional Family Medical History / Comment(s): Mother of ovarian cancer at the age of 70 yrs. Father Family Medical History: Liver Disease Additional Family Medical History / Comment(s): Father of cirrhosis at the age of 55 yrs. General Exam Limitations: no limitations General appearance: alert, in no apparent distress Head exam: Present: normocephalic Eye exam: Present: normal appearance, PERRL Neck exam: Present: normal inspection Respiratory exam: Present: normal lung sounds bilaterally, other (right anterior chest wall dialysis port is present) Cardiovascular Exam: Present: regular rate, normal rhythm GI/Abdominal exam: Present: soft. Absent: tenderness Extremities exam: Present: normal inspection Neurological exam: Present: alert Psychiatric exam: Present: normal affect, normal mood Skin exam: Present: normal color Course Vital Signs 11/13/20 13:24 Temperature 97.9 F Pulse Rate 85 Respiratory 16 Rate Blood Pressure 97/57 O2 Sat by Pulse 97 Oximetry - Reevaluation(s) Reevaluation #1: 09/30/20 14:24 case was discussed earlier with Dr. Seals who will send dialysis nurse down. Medical Decision Making - Medical Decision Making under direction of Dr. Seals, dialysis nurse was able to use the port without any difficulty. She states patient can be discharged for dialysis tomorrow - Lab Data Result diagrams: 09/30/20 14:36 09/30/20 14:36 Lab Results 09/30/20 09/30/20 Range/Units 14:36 14:36 WBC 7.1 (3.8-10.6) k/uL RBC 2.68 L (3.80-5.40) m/uL Hgb 8.8 L (11.4-16.0) gm/dL Hct 26.6 L (34.0-46.0) % MCV 99.3 D (80.0-100.0) fL MCH 32.9 (25.0-35.0) pg MCHC 33.2 (31.0-37.0) g/dL RDW 16.8 H (11.5-15.5) % Plt Count 79 L (150-450) k/uL MPV 8.1 Neutrophils % 56 % Lymphocytes % 11 % Monocytes % 4 % Eosinophils % 28 % Basophils % 1 % Neutrophils # 4.0 (1.3-7.7) k/uL Lymphocytes # 0.8 L (1.0-4.8) k/uL Monocytes # 0.3 (0-1.0) k/uL Eosinophils # 2.0 H (0-0.7) k/uL Basophils # 0.1 (0-0.2) k/uL Manual Slide Review Performed Hypochromasia Slight Anisocytosis Slight Macrocytosis Slight Sodium 135 L (137-145) mmol/L Potassium 4.6 (3.5-5.1) mmol/L Chloride 107 (98-107) mmol/L Carbon Dioxide 25 (22-30) mmol/L Anion Gap 3 mmol/L BUN 23 H (7-17) mg/dL Creatinine 4.52 H (0.52-1.04) mg/dL Est GFR (CKD-EPI)AfAm 10 (>60 ml/min/1.73 sqM) Est GFR (CKD-EPI)NonAf 9 (>60 ml/min/1.73 sqM) Glucose 98 (74-99) mg/dL Calcium 7.8 L (8.4-10.2) mg/dL Magnesium 1.6 (1.6-2.3) mg/dL Total Bilirubin 0.8 (0.2-1.3) mg/dL AST 41 H (14-36) U/L ALT 12 (4-34) U/L Alkaline Phosphatase 92 (38-126) U/L Total Protein 5.8 L (6.3-8.2) g/dL Albumin 2.3 L (3.5-5.0) g/dL Disposition Clinical Impression: Dialysis catheter clot or failure Disposition: HOME SELF-CARE Condition: Stable Instructions (If sedation given, give patient instructions): Hemodialysis (DC) Additional Instructions: please go to dialysis tomorrow as scheduled. Return for catheter problems or other concerns. Is patient prescribed a controlled substance at d/c from ED?: No Referrals: Flex Bojorquez DO [Primary Care Provider] - 1-2 days Samira Seals MD [STAFF PHYSICIAN] - 1-2 days Time of Disposition: 17:00
[2020-09-30] MEDS ORDERED: ALTEPLASE 2 MG VIAL (CATHFLO) IV STA ×2 (14:01→14:03)
[2020-09-30 15:03] LABS: Albumin 2.3 g/dL (3.5-5.0); Total Protein 5.8 g/dL (6.3-8.2)
[2020-09-30 15:04] LABS: Calcium 7.8 mg/dL (8.4-10.2); Magnesium 1.6 mg/dL (1.6-2.3); Potassium 4.6 mmol/L (3.5-5.1); Total Bilirubin 0.8 mg/dL (0.2-1.3)
[2020-09-30 15:05] LABS: Anisocytosis Slight; Basophils # (A) 0.1 k/uL (0-0.2); Basophils % (A) 1 %; Eosinophils % (A) 28 %; HCT 26.6 % (34.0-46.0); HGB 8.8 gm/dL (11.4-16.0); Hypochromasia Slight; Lymphocytes # (A) 0.8 k/uL (1.0-4.8); Lymphocytes % (A) 11 %; MCH 32.9 pg (25.0-35.0); MCHC 33.2 g/dL (31.0-37.0); Macrocytosis Slight; Mean Platelet Volume 8.1; Monocytes # (A) 0.3 k/uL (0-1.0); Monocytes % (A) 4 %; Neutrophils % (A) 56 %; RBC 2.68 m/uL (3.80-5.40); RDW 16.8 % (11.5-15.5); WBC 7.1 k/uL (3.8-10.6)
[2020-09-30 15:10] LABS: MCV 99.3 fL (80.0-100.0); Platelet Count 79 k/uL (150-450)
== END 2020-09-30 17:28 | disposition home or self-care (01) ==
LOC: EC 13:05
DX: T82.49XA Other complication of vascular dialysis catheter, initial encounter (principal); N18.9 Chronic kidney disease, unspecified; D64.9 Anemia, unspecified; G89.29 Other chronic pain; M54.5 Low back pain; E78.5 Hyperlipidemia, unspecified; F32.9 Major depressive disorder, single episode, unspecified; Z79.899 Other long term (current) drug therapy; Z91.040 Latex allergy status; Z85.828 Personal history of other malignant neoplasm of skin; Z85.038 Personal history of other malignant neoplasm of large intestine; Z99.2 Dependence on renal dialysis; Z93.3 Colostomy status
CPT/HCPCS: 36415; 80053; 83735; 85025; 99283; 96374; J2997